=== PATIENT | male | born 1945 | race Caucasian/White ===

== ENCOUNTER 2023-10-17 13:37 | Observation (INO) | payer MEDICARE, BC, SELFPAY ==
[2023-10-17] VITALS (25 sets, daily range): BP systolic 120–155; BP diastolic 55–76; PULSE 53–95; RESP 16–28; TEMP 37.1–37.9; O2SAT 94–100; BMI 23.8; BMI 24.9
[2023-10-17 14:48] LABS: Strep A DNA Probe* NOT DETECTED (Not Detectd)
[2023-10-17 14:58] LABS: PCR FLU A Negative PCR FLU A (Negative); PCR FLU B Negative PCR FLU B (Negative); PCR RSV Negative PCR RSV (Negative)
[2023-10-17 14:59] LABS: SARS PCR* Negative SARS-CoV-2 (Negative)
[2023-10-17 16:29] LABS: Appearance Urine Clear (Clear); Bilirubin Urine Negative (Negative); Blood Urine Negative (Negative); Color Urine Yellow (Yellow); Glucose Urine Negative (Negative); Ketones Urine Negative (Negative); Leukocyte Esterase Urine Negative (Negative); Nitrite Urine Negative (Negative); Protein Urine 2+ (Negative); RBC Urine 0-2 (0-2); Specific Gravity Urine 1.025 (1.000-1.030); Urobilinogen Urine 0.2 (0.2-1.0); WBC Urine 0-2 (0-5); pH Urine 6.5 (5.0-8.5)
[2023-10-17 16:30] LABS: Bacteria Urine Few; Squamous Epithelial Cell Urine Few (None-Few)
[2023-10-17 16:50] LABS: Lactate* 1.2 mmol/L (0.5-1.9)
--- NOTE | 2023-10-17 17:08 | CRLHL7_ITS ---
For Patients: As a result of the Cures Act, medical imaging exams and procedure reports are released immediately into your electronic medical record. You may view this report before your referring provider. If you have questions, please contact your health care provider. INDICATION: Cough, fever weakness. COMPARISON: None. TECHNIQUE: Chest series. FINDINGS: Diffuse interseptal opacities within both lungs which may be secondary to infiltrates or pneumonitis. No pleural effusions. No pneumothorax. Cardiomegaly. Left-sided cardiac pacer. Degenerative changes in the visualized thoracic spine. IMPRESSION: 1. Diffuse interstitial opacities within both lungs secondary to infiltrate or pneumonitis 2. No pleural effusions. 3. Cardiomegaly Dictated by Júnior Peña MD @ 10/17/2023 5:45:24 PM (Electronically Signed)
--- NOTE | 2023-10-17 17:10 | ED.GENADULT ---
[facility] - General Adult General Date Seen: 10/17/23 Chief complaint: Weakness Stated complaint: Weak, unresponsive Time Seen by Provider: 10/17/23 16:38 History of Present Illness HPI narrative: This is a pleasant 78-year-old gentleman accompanied to the ER this afternoon by his for evaluation of generalized weakness, cough, fever. He has a past medical history notable for idiopathic pulmonary fibrosis (stable on OFEV for the past several years, not on oxygen) bladder cancer with bladder surgery and left nephrectomy performed about a year ago, history of pacemaker for arrhythmia, dyslipidemia, gout. He and his are in the process of relocating from [facility] to live here in [place] to be close to their children. They are in the process of establishing new primary and specialty care through the [facility]. Previous care has been through their doctors in [place] and [facility]. They note that their granddaughter was sick a couple of weeks ago with a viral respiratory syndrome. Both her son and their daughter in-law have been sick since last week. One of them has a bad ear infection and the other has a sinus infection in both are on antibiotics. Both tested negative for COVID at their doctor's checkups. The patient's has had a cough and respiratory illness for about a week. The patient developed symptoms yesterday. Symptoms started yesterday afternoon including cough, nasal congestion, also generalized weakness, fatigue, and increased sleepiness. He was trying to drink lots of fluids yesterday thinking dehydration may be playing a role. As result he was up 4 or 5 times over night to urinate. No other urinary symptoms such as dysuria, urgency, frequency. No hematuria. He is not having any abdominal pain. No vomiting. No diarrhea. Appetite has been less than normal. No swelling in his legs. He does have a chronic cough. His thinks he is coughing more than normal but he thinks it is about stable or perhaps only slightly worse. He says he is not short of breath. He has a ?scratchy throat?. Mild nasal congestion. No shortness of breath. He has also had a small lump behind his right ear for the past couple of years. It has begun to grow in size over the past month or so. It is not painful, red. At 1 point in the past he was able to squeeze it and expressed a little bit of fluid out of it, a couple of days ago. It he has seen his doctor in the think he probably has a sebaceous cyst there. He is planning to have an excision by a surgeon next week. Related Data Home Medications Medication Instructions Recorded Confirmed allopurinol 300 mg tablet 150 mg PO DAILY 10/17/23 10/17/23 aspirin 81 mg capsule 81 mg PO DAILY 10/17/23 10/17/23 atorvastatin 80 mg tablet 80 mg PO DAILY 10/17/23 10/17/23 cyclobenzaprine 10 mg tablet 10 mg PO HS 10/17/23 10/17/23 diltiazem HCl 180 mg 180 mg PO DAILY 10/17/23 10/17/23 capsule,extended release 24 hr (Cardizem CD) metoprolol tartrate 25 mg tablet 25 mg PO BID 10/17/23 10/17/23 mirtazapine 15 mg tablet (Remeron) 15 mg feeding tube DAILY 10/17/23 10/17/23 sildenafil 100 mg tablet (Viagra) 100 mg PO DAILY PRN 10/17/23 10/17/23 zolpidem 10 mg tablet (Ambien) 10/17/23 Allergies Allergy/AdvReac Type Severity Reaction Status Date / Time No Known Drug Allergies Allergy Verified 10/17/23 20:26 [facility] Social History Smoking Status: Unknown if ever smoked Exam Narrative: Exam Narrative: Constitutional: Appears well-developed and well-nourished. Alert. Conversant. Non toxic. HENT: Head: Atraumatic. Right ear: He has a superficial appearing, mobile, roughly square-shaped 2 x 2 cm soft tissue nodule in the skin overlying his mastoid. Mobley is normal. Canal normal. TM normal. Left ear: Mastoid, pinna, canal are normal. Nose: Non purulent rhinorrhea. No sinus tenderness. Nose normal. Mouth/Throat: Oral mucosa is clear and moist. no trismus. Pharynx and peritonsillar pillars erythematous. Tonsils symmetric. No tonsillar enlargement, erythema, or exudate. Uvula midline. Eyes: Conjunctivae mildly injected bilaterally. No drainage. No swelling. EOM normal. Pupils equal, round, and reactive to light. No scleral icterus. Neck: Normal range of motion. Neck supple. No tracheal deviation present. Cardiovascular: Normal rate, regular rhythm. No gallop. No friction rub. No murmur heard. Symmetric radial and PT/DP artery pulses Pulmonary/Chest: Effort normal. No stridor. No respiratory distress. No wheezes. Dry surrounding bibasilar rales (per patient and he has a history of pulmonary fibrosis). No rhonchi . No tenderness. Abdominal: Soft. Bowel sounds normal. No distension. No mass. No tenderness. No rebound. No guarding. No CVA tenderness. Musculoskeletal: RUE: Normal range of motion. No tenderness. No deformity LUE: Normal range of motion. No tenderness. No deformity RLE: Normal range of motion. No edema. No tenderness. No deformity LLE: Normal range of motion. No edema. No tenderness. No deformity Lymph: No cervical adenopathy. Neurological: Alert and oriented to person, place, and time. Normal strength. CN II-VII intact. No sensory deficit. GCS eye subscore is 4. GCS verbal subscore is 5. GCS motor subscore is 6. Normal coordination Skin: Skin is warm and dry. No rash noted. No pallor. Normal capillary refill. Psychiatric: Normal mood. Normal affect. Const: Vital Signs, click to edit/add: Vital Signs - 24 hr 10/17/23 14:07 10/17/23 16:14 10/17/23 17:41 Temperature 100.2 F H 99.3 F Pulse Rate Pulse Rate [Pulse Oximeter] 55 L 54 L 53 L Respiratory Rate 20 18 16 Blood Pressure Blood Pressure [Ri ght Upper Arm] 155/65 H 120/55 L 120/62 Pulse Oximetry 97 96 96 Oxygen Delivery Me thod Room Air Room Air Room Air 10/17/23 18:28 10/17/23 18:30 10/17/23 18:33 Temperature Pulse Rate 62 54 L 55 L Pulse Rate [Pulse Oximeter] Respiratory Rate Blood Pressure 131/64 Blood Pressure [Ri ght Upper Arm] Pulse Oximetry 97 97 97 Oxygen Delivery Me thod 10/17/23 18:34 10/17/23 18:45 10/17/23 18:59 Temperature Pulse Rate 60 57 L 65 Pulse Rate [Pulse Oximeter] Respiratory Rate Blood Pressure 151/76 H Blood Pressure [Ri ght Upper Arm] Pulse Oximetry 97 97 95 Oxygen Delivery Wi thod 10/17/23 19:00 10/17/23 19:02 10/17/23 19:15 Temperature Pulse Rate 61 55 L 61 Pulse Rate [Pulse Oximeter] Respiratory Rate Blood Pressure 148/69 H Blood Pressure [Ri ght Upper Arm] Pulse Oximetry 96 97 95 Oxygen Delivery Me thod 10/17/23 19:30 10/17/23 19:41 10/17/23 19:45 Temperature Pulse Rate 65 57 L Pulse Rate [Pulse Oximeter] Respiratory Rate 28 H Blood Pressure Blood Pressure [Ri ght Upper Arm] Pulse Oximetry 97 98 Oxygen Delivery Me thod Course Course ED Course: Recheck-vital stable. Blood pressure down from 150 down to 130. Pulse rate improved from the 100s. Oxygen still high 90s. Chest x-ray shows probable multifocal pneumonia. On my review the chest x-ray, unclear if these infiltrates or truly acute community-acquired pneumonia or if they could possibly related to chronic pulmonary fibrosis. However his symptoms, fever, white count, clinically this would fit with community-acquired pneumonia. He is negative for COVID, influenza, RSV. Recheck-patient needs to urinate after fluids. Was able to ambulate under his own power in the hallway but did become tachypneic with respiratory rate up to 28. Oxygen sats remained normal while ambulating. Recheck-patient does report he felt quite weak when walking. In discussion with patient's and daughter, he has a whole flight of steps to go down if he were to go home. Overall they feel that he is probably too weak to safely go down the steps. We agree that hospitalization is warranted for monitoring and supportive care. Vital Signs Vital signs: Initial Vital Signs Temperature 100.2 F H 10/17/23 14:07 Temperature Source Temporal Artery Scan 10/17/23 14:07 Pulse Rate 55 L 10/17/23 14:07 Pulse Rhythm Regular 10/17/23 14:07 Respiratory Rate 20 10/17/23 14:07 Blood Pressure 155/65 H 10/17/23 14:07 Blood Pressure Mean 95 10/17/23 14:07 Blood Pressure Position Sitting 10/17/23 14:07 Pulse Oximetry 97 10/17/23 14:07 Oxygen Delivery Method Room Air 10/17/23 14:07 Vital Signs Temperature 100.2 F H 10/17/23 14:07 Pulse Rate 55 L 10/17/23 14:07 Respiratory Rate 20 10/17/23 14:07 Blood Pressure 155/65 H 10/17/23 14:07 Pulse Oximetry 97 10/17/23 14:07 Oxygen Delivery Method Room Air 10/17/23 14:07 Temperature 99.3 F 10/17/23 16:14 Pulse Rate 57 L 10/17/23 19:45 Respiratory Rate 28 H 10/17/23 19:41 Blood Pressure 148/69 H 10/17/23 19:02 Pulse Oximetry 98 10/17/23 19:45 Oxygen Delivery Method Room Air 10/17/23 17:41 Medications Administered Medications: Generic Name Dose Route Start Last Admin Trade Name Freq PRN Reason Stop Dose Admin Ceftriaxone Sodium 1 gm/ 100 mls @ 200 mls/hr 10/17/23 18:40 10/17/23 19:26 Sodium Chloride IVPB 10/17/23 18:41 Infused ONCE ONE Infusion Azithromycin 500 mg/ Sodium 255 mls @ 255 mls/hr 10/17/23 18:40 10/17/23 19:36 Chloride IVPB 10/17/23 18:41 255 mls/hr ONCE ONE Administration Discontinued Medications Generic Name Dose Route Start Last Admin Trade Name Freq PRN Reason Stop Dose Admin Sodium Chloride 1,000 mls @ 1,000 mls/hr 10/17/23 17:15 10/17/23 19:02 0.9 % Sodium Chloride 1000 Ml IV 10/17/23 18:14 Infused .Q1H [place] Infusion Medical Decision Making [facility] Narrative Medical decision making narrative: Very pleasant 78-year-old gentleman presenting to the ER today with fever, cough, nasal congestion, sore throat, generalized weakness, difficulty walking at home. 1. Pulmonary. Does have a cough. Fortunately oxygen is in the high 90s. He does become tachypneic and short of breath when walking but is not hypoxic. He has baseline pulmonary fibrosis but has been stable with that for years. With recent cough, consider infectious process. COVID/influenza/RSV negative. No wheezing or bronchospasm to suggest COPD. Chest x-ray does show bilateral infiltrates, possibly indicating COPD. Differential for the infiltrates would also include his pulmonary fibrosis. Will treat with antibiotics for community-acquired pneumonia. At this point he is respiratory early stable but does become quite short of breath and and weak with walking. Will admit for careful monitoring. At this point not requiring oxygen or positive pressure ventilation. 2. Infectious disease. Negative for COVID/RSV/influenza. Does have exposures to other family members with respiratory illnesses at home. Chest x-ray shows possible pneumonia. He has a history of bladder cancer with left nephrectomy. Bladder infection a couple of months ago. Urinalysis today looks good. No evidence for UTI or pyelonephritis. Blood cultures pending. UA did have a low-grade fever here at presentation but that improved. Venous lactic normal. White count elevated at 13.4. No evidence for septic shock. He received a 1 L IV fluid bolus here. At this point no indication for a full 30 mL/kilos bolus. 3. Cardiac. EKG shows functioning pacemaker. No ischemia. Troponin negative. No peripheral edema suggest CHF. 4. Renal. Has had poor appetite recently. Fortunately creatinine is normal at 0.9. BUN slightly elevated suggesting probable pre renal. Sodium mildly low at 134. Potassium mildly low at 3.3. Overall, given the patient's age, medical comorbidities, and community-acquired pneumonia with his ongoing generalized weakness and shortness of breath with exertion we do feel that he meets criteria for hospitalization. Discussed with our hospitalist, Dr. Gil will accept to the hospitalist service for monitoring overnight. She requests that we obtain a CT PA of his lungs to get a better characterization of the infiltrates. She will follow up on the results when he arrived on the floor. Lab Data Labs: Lab Results 10/17/23 10/17/23 10/17/23 Range/Units 14:12 16:20 16:36 WBC 13.10 H (4.50-11.00) K/uL RBC 3.56 L (4.30-5.90) m/uL Hgb 11.4 L (13.5-17.5) gm/dL Hct 34.4 L (37.0-53.0) % MCV 97 (80-100) fL MCH 32 (26-34) pg MCHC 33 (32-36) gm/dL RDW Coeff of Oscar 14.4 (11.5-15.5) % Plt Count 165 (140-440) K/uL Neut % (Auto) 80.1 H (42.0-72.0) % Lymph % (Auto) 9.5 L (20-44) % Carroll % (Auto) 9.4 (0.0-11.0) % Eos % (Auto) 0.5 (0.0-7.0) % Baso % (Auto) 0.3 (0.0-3.0) % Neut # (Auto) 10.50 H (1.7-7.0) K/uL Lymph # (Auto) 1.20 (0.90-2.90) K/uL Carroll # (Auto) 1.20 H (0.00-0.90) K/UL Eos # (Auto) 0.10 (0.00-0.50) K/uL Baso # (Auto) 0.00 (0.00-0.30) K/uL Abs Immat Gran (auto) 0.00 (0.00-0.30) K/uL Imm/Tot Granulo (auto) 0.2 % Sodium 134 L (135-149) mmol/L Potassium 3.3 L (3.6-5.1) mmol/L Chloride 101 (96-114) mmol/L Carbon Dioxide 25 (20-32) mmol/L Anion Gap 8 (7-15) mEq/L BUN 36 H (7-30) mg/dL Creatinine 0.9 (0.5-1.5) mg/dL Estimated Creat Clear 56.92 Estimated GFR 87 ml/min Glucose 124 H (60-115) mg/dL Lactate 1.2 (0.5-1.9) mmol/L Calcium 8.4 (8.4-10.6) mg/dL Total Bilirubin 0.6 (0.1-1.5) mg/dL AST 29 (12-35) U/L ALT 20 (4-50) U/L Alkaline Phosphatase 97 (40-150) U/L Troponin I 0.03 (0.01-0.04) ng/mL Total Protein 7.0 (6.0-8.3) g/dL Albumin 3.9 (3.3-5.0) g/dL Urine Color Yellow (Yellow) Urine Appearance Clear (Clear) Urine pH 6.5 (5.0-8.5) Ur Specific Mclean 1.025 (1.000-1.030) Urine Protein 2+ A (Negative) Urine Glucose (UA) Negative (Negative) Urine Ketones Negative (Negative) Urine Blood Negative (Negative) Urine Nitrite Negative (Negative) Urine Bilirubin Negative (Negative) Urine Urobilinogen 0.2 (0.2-1.0) Ur Leukocyte Esterase Negative (Negative) Urine RBC 0-2 (0-2) Urine WBC 0-2 (0-5) Ur Squamous Epith Cells Few (None-Few) Urine Bacteria Few A (None) SARS-CoV-2 (PCR) Negative SARS-CoV-2 (Negative) Influenza Type A (PCR) Negative PCR FLU A (Negative) Influenza Type B (PCR) Negative PCR FLU B (Negative) RSV (PCR) Negative PCR RSV (Negative) Group A Strep DNA NOT DETECTED (Not Detectd) ECG Data Attestation: I personally reviewed and interpreted this ECG as follows: Interpretation: Paced. Rate 52 NE 234 QRS axis left axis deviation. Paced QRS ST segment/T wave: Consistent with pacemaker. QTc: 487 Discharge Plan Discharge Clinical Impression: Community acquired pneumonia Prescriptions: No Action allopurinol 300 mg tablet 150 mg PO DAILY atorvastatin 80 mg tablet 80 mg PO DAILY diltiazem HCl [Cardizem CD] 180 mg capsule,extended release 24hr 180 mg PO DAILY metoprolol tartrate 25 mg tablet 25 mg PO BID mirtazapine [Remeron] 15 mg tablet 15 mg feeding tube DAILY aspirin 81 mg capsule 81 mg PO DAILY zolpidem [Ambien] 10 mg tablet cyclobenzaprine 10 mg tablet 10 mg PO HS sildenafil [Viagra] 100 mg tablet 100 mg PO DAILY PRN Rx Instructions: administer 30 minutes to 4 hours before activity Follow Up/Referrals: Neville Bowie MD [Primary Care Provider] -
[2023-10-17 17:24] LABS: Basophils Percent Auto 0.3 % (0.0-3.0); Eosinophils Percent Auto 0.5 % (0.0-7.0); Hematocrit 34.4 % (37.0-53.0); Hemoglobin* 11.4 gm/dL (13.5-17.5); Immature Granulocytes Pct Auto 0.2 %; Lymphocytes Percent Auto 9.5 % (20-44); Mean Corpuscular HGB Conc 33 gm/dL (32-36); Mean Corpuscular Hemoglobin 32 pg (26-34); Mean Corpuscular Volume 97 fL (80-100); Monocytes Percent Auto 9.4 % (0.0-11.0); Neutrophils Percent Auto 80.1 % (42.0-72.0); Platelet Count* 165 K/uL (140-440); RDW Coefficient of Variation % 14.4 % (11.5-15.5); Red Blood Count 3.56 m/uL (4.30-5.90)
[2023-10-17 17:27] LABS: Albumin* 3.9 g/dL (3.3-5.0)
[2023-10-17 17:28] LABS: Chloride* 101 mmol/L (96-114); Potassium* 3.3 mmol/L (3.6-5.1); Sodium* 134 mmol/L (135-149)
[2023-10-17 17:29] LABS: Slide Review Reflex No
[2023-10-17 17:30] LABS: Anion Gap 8 mEq/L (7-15); Aspartate Amino Transferase* 29 U/L (12-35); Bilirubin Total* 0.6 mg/dL (0.1-1.5); Carbon Dioxide* 25 mmol/L (20-32); Creatinine* 0.9 mg/dL (0.5-1.5); Est. Creatinine Clearance* 56.92; Estimated Glomerular Filt Rate 87 ml/min
[2023-10-17 17:31] LABS: Alanine Aminotransferase* 20 U/L (4-50); Alkaline Phosphatase* 97 U/L (40-150); Blood Urea Nitrogen* 36 mg/dL (7-30); Calcium* 8.4 mg/dL (8.4-10.6); Glucose* 124 mg/dL (60-115)
[2023-10-17] MEDS: 0.9 % SODIUM CHLORIDE 1000 ml 1,000 ML IV (17:42)
[2023-10-17 17:43] LABS: Troponin I* 0.03 ng/mL (0.01-0.04)
[2023-10-17] MEDS: cefTRIAXone 1 GM in 0.9 % SODIUM CHLORIDE Mini-bag 100 ML IVPB (18:47)
[2023-10-17] MEDS: AZITHROMYCIN 500 MG in 0.9 % SODIUM CHLORIDE 250 ml 250 ML 255 MG IVPB (19:36)
--- NOTE | 2023-10-17 20:10 | CRLHL7_ITS ---
For Patients: As a result of the Century Cures Act, medical imaging exams and procedure reports are released immediately into your electronic medical record. You may view this report before your referring provider. If you have questions, please contact your health care provider. INDICATION: Cough, shortness of breath, history bladder and kidney cancer TECHNIQUE: CT chest with i.v. contrast using pulmonary angiographic technique. Coronal and sagittal reformats were obtained. CONTRAST: 89 mL Isovue 370 COMPARISON: 10/17/2023 FINDINGS: Cardiovascular: Moderate enlargement of the main pulmonary artery is present and measures 3.3 cm in maximal short axis. The pulmonary arteries are unremarkable in enhancement with no evidence of acute pulmonary embolism. Moderate biventricular cardiomegaly is present. There is a left cardiac pacer present with leads in the right atrium and right ventricle. 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 Mediastinum: No mass or adenopathy seen. Lung: Interlobular septal thickening is present bilaterally with no zonal predominance seen. Minimal segmental consolidation is present in the posterior left lower lobe. Pleura and pericardium: No sign of pleural effusion seen. No significant pericardial effusion is present. Chest wall and axilla: No mass or adenopathy seen. Bone: Unremarkable for age. Upper abdomen: Unremarkable. IMPRESSIONS: 1. No CT evidence of acute pulmonary emboli seen. 2. Moderate enlargement of the main pulmonary artery is present and measures 3.3 cm in maximal short axis. This is likely due to pulmonary hypertension. 3. Moderate biventricular cardiomegaly is present. 4. Interlobular septal thickening is present bilaterally with no zonal predominance seen. Minimal segmental consolidation is present in the posterior left lower lobe. Findings may be due to pulmonary fibrosis from collagen vascular disease or drug reaction. Dictated by Valentín Hernández MD @ 10/17/2023 8:51:32 PM Please note that all CT scans at this facility use dose modulation, iterative reconstruction, and/or weight-based dosing when appropriate to reduce radiation dose to as low as reasonably achievable. Dictated by: Valentín Hernández MD @ 10/17/2023 20:51:43 (Electronically Signed)
--- NOTE | 2023-10-17 21:11 | P.IMHP_ITS ---
Hospitalist- H&P: HPI History of Present Illness Date Seen: 10/17/23 Chief complaint: Weak, unresponsive Narrative: ADMISSION HISTORY AND PHYSICAL - HOSPITALIST Chief Complaint: Weakness, cough HPI: 78-year-old male with a history of idiopathic pulmonary fibrosis, valvular heart disease (tricuspid, mitral), heart block with pacemaker, bladder cancer and mild cognitive impairment presents for increasing weakness. He and his just moved from [place] 2 weeks ago. They are living with their son, [id number] and granddaughter. The rest of the family has had a upper respiratory infections. COVID negative so far. In the last 24 hours Heriberto has become progressively weak and mildly delirious. She stated it took three people to guide him to bed on the night prior to admissions. He has felt warm but not hot, no rigors, no diaphoresis. He started a productive weak cough early this morning. His brought him in for further evaluation to our ED. He is medically complex. He has received most of his care on the [facility]. [facility] has some of his medical record. He just established primary care with [facility], Dr. Bowie. He has pending oncology (bladder cancer), pulmonology (IPF), dermatology (right postauricular mass, history of melanoma, BCC, SCC) and is awaiting a cardiology referral all to the [facility]. More over than the acute symptoms his describes 20 lbs of unintentional weight loss over the last year, increasing weakness and needing more naps. She also notes some mild cognitive decline. ER COURSE: Fluids, antibiotics, x-ray and labs. While his labs were not all that off, and his vital signs were essentially stable without hypoxia it was his weakness with the inability to walk on his own that tipped the ER to call us for admission CODE STATUS: FULL CODE EMERGENCY CONTACT PLAN: Primary Contact? Viry Lindsey? ?Rel to [facility]? [phone]?Cell Phone? I've updated the PFSH, medications and allergies in the Expanse tabs. INVESTIGATIONS: LABS/MICRO/ECG/IMAGING 140/71. Pulse 60. Respirations 28. Temp 99.3?. O2 sat 94% on room air. 69 kilos, BMI 24 Mild bump in his total white blood cell count to 13.1, 80% neutrophils Hemoglobin 11.4 Platelet count 165 Sodium 134 with a glucose of 124 Potassium 3.3 BUN 36 with a creatinine of 0.9. GFR 87. Normal lactate Normal calcium Normal LFTs 2+ protein in his urine Negative quad screen Negative strep screen Blood gas is normal Now pending is CRP, BNP, procalcitonin and TSH Urine Legionella and strep pneumo are pending Two blood cultures pending. Urine culture pending CTA 1. No CT evidence of acute pulmonary emboli seen. 2. Moderate enlargement of the main pulmonary artery is present and measures 3.3 cm in maximal short axis. This is likely due to pulmonary hypertension. 3. Moderate biventricular cardiomegaly is present. 4. Interlobular septal thickening is present bilaterally with no zonal predominance seen. Minimal segmental consolidation is present in the posterior left lower lobe. Findings may be due to pulmonary fibrosis from collagen vascular disease or drug reaction. REVIEW OF SYSTEMS: 12-point ROS completed with patient and negative unless otherwise stated in HPI or below. PHYSICAL EXAM: CONSTITUTIONAL: Weak appearing, eyelids heavy, injected conjunctiva. Struggles to complete sentences. VITAL SIGNS: see record. HEENT: Normocephalic, atraumatic. PERRL, EOMI, conjunctivae pink, no scleral icterus. Ears and nose externally normal. Pharynx normal. NECK: No JVD. No carotid bruit, no thyromegaly, no adenopathy. Large firm mass postauricular, right ear. Size of a golf ball CHEST: Clear to auscultation bilaterally HEART: S1 and S2 normal. No harsh murmurs. Edema minimal MUSCULOSKELETAL: No gross joint deformity or swelling. NEURO: Cranial nerves intact. Grossly intact. No asymmetric findings. SKIN: No rashes, petechiae, concerning changes PSYCHIATRIC: Euthymic. ADMIT TO MEDSURG: FLOOR CARE DVT: Lovenox GI: PO intake Time spent: Today I spent 75 minutes seeing the patient, discussing the patient with ER staff, reviewing Expanse and EPIC notes/diagnostics, discussing the care plan with our care time that includes social work, PT/OT, pharmacy, RT, custodial and documenting my impressions and plan in the medical record. [facility] Medical History (Updated 10/17/23 @ 22:31 by Radha Gil MD) History of SCC (squamous cell carcinoma) of skin ?Z85.828 - Personal history of other malignant neoplasm of skin (ICD-10) History of basal cell carcinoma (BCC) ?Z85.828 - Personal history of other malignant neoplasm of skin (ICD-10) History of melanoma ?Z85.820 - Personal history of malignant melanoma of skin (ICD-10) Mild cognitive impairment ?G31.84 - Mild cognitive impairment of uncertain or unknown etiology (ICD-10) Erectile dysfunction ?N52.9 - Male erectile dysfunction, unspecified (ICD-10) Urothelial carcinoma of bladder ?C67.9 - Malignant neoplasm of bladder, unspecified (ICD-10) Chronic kidney disease ?N18.9 - Chronic kidney disease, unspecified (ICD-10) Gout ?M10.9 - Gout, unspecified (ICD-10) Valvular heart disease ?I38 - Endocarditis, valve unspecified (ICD-10) Idiopathic pulmonary fibrosis ?J84.112 - Idiopathic pulmonary fibrosis (ICD-10) History of second degree heart block ?Z86.79 - Personal history of other diseases of the circulatory system (ICD- 10) Tinnitus ?H93.19 - Tinnitus, unspecified ear (ICD-10) Paroxysmal SVT (supraventricular tachycardia) ?I47.10 - Supraventricular tachycardia, unspecified (ICD-10) Hyperlipidemia ?E78.5 - Hyperlipidemia, unspecified (ICD-10) Surgical History (Updated 10/17/23 @ 21:35 by Radha Gil MD) History of hernia repair ?Z98.890 - Other specified postprocedural states (ICD-10) ?Z87.19 - Personal history of other diseases of the digestive system (ICD-10) History of tonsillectomy ?Z90.89 - Acquired absence of other organs (ICD-10) H/O cataract removal with insertion of prosthetic lens ?Z98.49 - Cataract extraction status, unspecified eye (ICD-10) ?Z96.1 - Presence of intraocular lens (ICD-10) Status post Dupuytren's fasciectomy ?Z98.890 - Other specified postprocedural states (ICD-10) Status post nephrectomy ?Z90.5 - Acquired absence of kidney (ICD-10) Status post biventricular pacemaker ?Z95.0 - Presence of cardiac pacemaker (ICD-10) Social History Smoking Status: Unknown if ever smoked Meds Home Medications and Allergies Home Medications Medication Instructions Recorded Confirmed Type allopurinol 300 mg tablet 150 mg PO DAILY 10/17/23 10/17/23 History aspirin 81 mg capsule 81 mg PO DAILY 10/17/23 10/17/23 History atorvastatin 80 mg tablet 80 mg PO DAILY 10/17/23 10/17/23 History cyclobenzaprine 10 mg tablet 10 mg PO HS 10/17/23 10/17/23 History diltiazem HCl 180 mg 180 mg PO DAILY 10/17/23 10/17/23 History capsule,extended release 24 hr (Cardizem CD) metoprolol tartrate 25 mg tablet 25 mg PO BID 10/17/23 10/17/23 History mirtazapine 15 mg tablet (Remeron) 15 mg feeding tube DAILY 10/17/23 10/17/23 History sildenafil 100 mg tablet (Viagra) 100 mg PO DAILY PRN 10/17/23 10/17/23 History zolpidem 10 mg tablet (Ambien) 10/17/23 History Allergies Allergy/AdvReac Type Severity Reaction Status Date / Time No Known Drug Allergies Allergy Verified 10/17/23 20:26 Exam Const: Vital Signs, click to edit/add: Vital Signs - 24 hr 10/17/23 14:07 10/17/23 16:14 10/17/23 17:41 Temperature 100.2 F H 99.3 F Pulse Rate Pulse Rate [Pulse Oximeter] 55 L 54 L 53 L Respiratory Rate 20 18 16 Blood Pressure Blood Pressure [Ri ght Upper Arm] 155/65 H 120/55 L 120/62 Pulse Oximetry 97 96 96 Oxygen Delivery Me thod Room Air Room Air Room Air 10/17/23 18:28 10/17/23 18:30 10/17/23 18:33 Temperature Pulse Rate 62 54 L 55 L Pulse Rate [Pulse Oximeter] Respiratory Rate Blood Pressure 131/64 Blood Pressure [Ri ght Upper Arm] Pulse Oximetry 97 97 97 Oxygen Delivery Me thod 10/17/23 18:34 10/17/23 18:45 10/17/23 18:59 Temperature Pulse Rate 60 57 L 65 Pulse Rate [Pulse Oximeter] Respiratory Rate Blood Pressure 151/76 H Blood Pressure [Ri ght Upper Arm] Pulse Oximetry 97 97 95 Oxygen Delivery Me thod 10/17/23 19:00 10/17/23 19:02 10/17/23 19:15 Temperature Pulse Rate 61 55 L 61 Pulse Rate [Pulse Oximeter] Respiratory Rate Blood Pressure 148/69 H Blood Pressure [Ri ght Upper Arm] Pulse Oximetry 96 97 [facility] 19:30 10/17/23 19:41 10/17/23 19:45 Temperature Pulse Rate 65 57 L Pulse Rate [Pulse Oximeter] Respiratory Rate 28 H Blood Pressure Blood Pressure [Ri ght Upper Arm] Pulse Oximetry 97 98 [facility] 10/17/23 20:00 10/17/23 20:02 10/17/23 20:15 Temperature Pulse Rate 61 62 63 Pulse Rate [Pulse Oximeter] Respiratory Rate Blood Pressure 127/74 Blood Pressure [Ri ght Upper Arm] Pulse Oximetry 98 100 98 Oxygen Delivery [facility] 10/17/23 20:32 10/17/23 20:33 10/17/23 20:34 Temperature Pulse Rate 67 62 64 Pulse Rate [Pulse Oximeter] Respiratory Rate Blood Pressure 140/71 H Blood Pressure [Ri ght Upper Arm] Pulse Oximetry 96 96 95 Oxygen Delivery [facility] 10/17/23 20:45 Temperature Pulse Rate 60 Pulse Rate [Pulse Oximeter] Respiratory Rate Blood Pressure Blood Pressure [Ri ght Upper Arm] Pulse Oximetry 94 Oxygen Delivery [facility] Hospitalist - H&P: Result Labs Labs: Short CBC 10/17/23 Range/Units 16:36 WBC 13.10 H (4.50-11.00) K/uL Hgb 11.4 L (13.5-17.5) gm/dL Hct 34.4 L (37.0-53.0) % Plt Count 165 (140-440) K/uL [facility] 10/17/23 16:36 Sodium 134 L Potassium 3.3 L Chloride 101 Carbon Dioxide 25 BUN 36 H Creatinine 0.9 Glucose 124 H Calcium 8.4 Cardiac Enzymes 10/17/23 Range/Units 16:36 Troponin I 0.03 (0.01-0.04) ng/mL Liver Function 10/17/23 Range/Units 16:36 Total Bilirubin 0.6 (0.1-1.5) mg/dL AST 29 (12-35) U/L ALT 20 (4-50) U/L Alkaline Phosphatase 97 (40-150) U/L Albumin 3.9 (3.3-5.0) g/dL Urine 10/17/23 Range/Units 16:20 Urine Color Yellow (Yellow) Urine Appearance Clear (Clear) Urine pH 6.5 (5.0-8.5) Ur Specific Navarro 1.025 (1.000-1.030) Urine Protein 2+ A (Negative) Urine Glucose (UA) Negative (Negative) Assessment and Plan Assessment and plan (1) Community acquired pneumonia: Problem comment: -after reviewing the CTA, I am not convinced there is a community-acquired pneumonia. However with his cough, malaise/weakness, injected conjunctiva he very well could have an adenovirus it simply has made him weak given all of his comorbidities. -I wrote for antibiotics on day 2, 12/19 but the day team can certainly stop these -gave a dose of IV steroids tonight and prednisone p.o. tomorrow -pulmonary toilet -will update echocardiogram given his known valvular disease and cardiomyopathy. I am awaiting BNP as I dictate this. Status: Acute (2) Idiopathic pulmonary fibrosis: Problem comment: -nintedanib (Ofev) BID (causes him diarrhea; has home med to use) -20lb weight loss ( attributed to chronic diarrhea from the Ofev) -not hypoxic, VBG is reassuring, scan shows the septal thickening Status: Acute (3) Valvular heart disease: Problem comment: -will update echo Echo August 2019 ([place]- scan in [facility]) -left atrium is severely dilated -right atrium is mildly dilated -moderate tricuspid regurg -moderately thickened mitral valve leaflets, moderate mitral regurg -left ventricular systolic function is normal -50-55% EF Mild left ventricular hypertrophy Elevated right ventricular pressures at 34 Status: Acute (4) History of second degree heart block: Problem comment: -biventricular pacemaker -troponin negative -telemetry -EKG reviewed Status: Acute (5) Chronic kidney disease: Problem comment: -stable Status: Acute (6) Essential hypertension: Problem comment: -daily diltiazem, metoprolol succinate Status: Acute (7) Mild cognitive impairment: Problem comment: -superimposed mild delirium tonight. Status: Acute (8) Urothelial carcinoma of bladder: Problem comment: -left nephrectomy Status: Acute
[2023-10-17 21:30] LABS: Lab Add On Test New Spec Needed
[2023-10-17 22:02] LABS: HCO3 VBG 26 mmol/L (21-28); PCO2 VBG 42 mmHG (40-50); PO2 VBG 35.3 mmHG (25-47); pH VBG 7.405 (7.32-7.43)
[2023-10-17 22:09] LABS: Uric Acid* 4.1 mg/dL (2.2-8.4)
[2023-10-17 22:25] LABS: C Reactive Protein* 12.5 mg/dL (0.5-1.0); NT Pro B Type NatriureticPept* 2600 pg/mL
[2023-10-17 22:26] LABS: Procalcitonin* 0.16 ng/mL (<0.50)
[2023-10-17] MEDS: IPRAT-ALBUT 0.5-2.5 MG/3 ML NEB 1 NEB IH (23:55)
[2023-10-17] MEDS: 5 % DEXTROSE IN LAC RINGER'S 1,000 ML 125 ML IV (23:57)
[2023-10-18] VITALS (7 sets, daily range): BP systolic 127–145; BP diastolic 66–73; PULSE 56–74; RESP 18–26; TEMP 36.4–37.1; O2SAT 93–100; BMI 24.4
[2023-10-18] MEDS: METHYLPREDNISOLONE SOD SUCC 62.5 MG/ML (125) 125 MG IVP (00:03)
[2023-10-18] MEDS: ENOXAPARIN 40 MG/0.4 ML INJ SUBCUT ×2 (00:13→21:35)
[2023-10-18] MEDS: IPRAT-ALBUT 0.5-2.5 MG/3 ML NEB 1 NEB IH ×4 (04:44→21:35)
[2023-10-18 06:25] LABS: Ionized Calcium* 1.15 mmol/L (1.11-1.30)
[2023-10-18 06:26] LABS: Basophils Percent Auto 0.2 % (0.0-3.0); Hematocrit 34.3 % (37.0-53.0); Hemoglobin* 11.6 gm/dL (13.5-17.5); Immature Granulocytes Pct Auto 0.7 %; Lymphocytes Percent Auto 3.2 % (20-44); Mean Corpuscular HGB Conc 34 gm/dL (32-36); Mean Corpuscular Hemoglobin 32 pg (26-34); Mean Corpuscular Volume 95 fL (80-100); Monocytes Percent Auto 1.9 % (0.0-11.0); Platelet Count* 159 K/uL (140-440); RDW Coefficient of Variation % 14.2 % (11.5-15.5); Red Blood Count 3.63 m/uL (4.30-5.90); White Blood Count* 12.52 K/uL (4.50-11.00)
[2023-10-18 06:39] LABS: Slide Review Reflex No
[2023-10-18 06:45] LABS: INR 1.22 (0.91-1.10); Prothrombin Time 16.2 Seconds
[2023-10-18 06:53] LABS: Albumin* 3.5 g/dL (3.3-5.0); Chloride* 106 mmol/L (96-114); Sodium* 135 mmol/L (135-149)
[2023-10-18 06:54] LABS: Potassium* 3.7 mmol/L (3.6-5.1)
[2023-10-18 06:56] LABS: Bilirubin Direct* 0.1 mg/dL (0.0-0.5); Bilirubin Total* 0.6 mg/dL (0.1-1.5); Carbon Dioxide* 23 mmol/L (20-32); Creatinine* 0.8 mg/dL (0.5-1.5); Estimated Glomerular Filt Rate 91 ml/min
[2023-10-18 06:57] LABS: Alanine Aminotransferase* 21 U/L (4-50); Alkaline Phosphatase* 104 U/L (40-150); Anion Gap 6 mEq/L (7-15); Aspartate Amino Transferase* 29 U/L (12-35); Blood Urea Nitrogen* 31 mg/dL (7-30); Calcium* 8.5 mg/dL (8.4-10.6); Glucose* 201 mg/dL (60-115); Magnesium* 1.7 mg/dL (1.5-2.6); Phosphorus* 1.6 mg/dL (2.5-4.5); Total Protein* 6.8 g/dL (6.0-8.3)
[2023-10-18 07:06] LABS: Troponin I* 0.03 ng/mL (0.01-0.04)
[2023-10-18] MEDS: 5 % DEXTROSE IN LAC RINGER'S 1,000 ML 125 ML IV (08:24)
--- NOTE | 2023-10-18 08:30 | PC.NURSE ---
Patient arrived to med/surg at 2109 accompanied by his . Pleasant and cooperative. Ambulates with stand by assist. Denied pain. Refused Nintedanib medication at reporting?that he didn?t want to have loose stools.?VSS.?
[2023-10-18] MEDS: predniSONE 20 MG TABLET 40 MG PO (09:20)
[2023-10-18] MEDS: SODIUM CHLORIDE 0.9 % (FLUSH) 10 ML SYRINGE 5 ML IVF ×3 (09:20→21:35)
[2023-10-18] MEDS: dilTIAZem 180 MG CAP (CD) PO (09:20)
[2023-10-18] MEDS: AZITHROMYCIN 250 MG TABLET PO (09:20)
[2023-10-18] MEDS: METOPROLOL TARTRATE 25 MG TABLET PO ×2 (09:20→21:34)
[2023-10-18] MEDS: POTASSIUM PHOS/SODIUM PHOS 250 MG TABLET PO ×3 (09:22→21:34)
--- NOTE | 2023-10-18 15:02 | PM.IMPN1 ---
Progress Note: A&P Assessment and plan (1) Community acquired pneumonia: Problem details: -suspected, atypical -after reviewing the CTA, I am not convinced there is a community-acquired pneumonia. However with his cough, malaise/weakness, injected conjunctiva he very well could have an adenovirus it simply has made him weak given all of his comorbidities. Strep negative. BC x2 pending, UC mixed keegan. Strep pneumo/Legionella ordered -continue IV antibiotics for now, pending further workup. Leukocytosis improving. -continue oral prednisone given his clinical improvement -pulmonary toilet -echo pending Status: Acute (2) Idiopathic pulmonary fibrosis: Problem details: -nintedanib (Ofev) BID (causes him diarrhea; has home med to use) - continue home dose -20lb weight loss ( attributed to chronic diarrhea from the Ofev) -not hypoxic, VBG is reassuring, scan shows the septal thickening -could be attributing to acute symptoms Status: Acute (3) Valvular heart disease: Problem details: -echo pending -BNP 2600. Stop IVF. -could consider diuretic pending echo findings, clinical course Echo August 2019 ([place] [facility]- scan in [facility]) -left atrium is severely dilated -right atrium is mildly dilated -moderate tricuspid regurg -moderately thickened mitral valve leaflets, moderate mitral regurg -left ventricular systolic function is normal -50-55% EF Mild left ventricular hypertrophy Elevated right ventricular pressures at 34 Status: Acute (4) History of second degree heart block: Problem details: -biventricular pacemaker -troponin negative -telemetry -EKG reviewed Status: Acute (5) Chronic kidney disease: Problem details: -stable, creatinine 0.8 Status: Acute (6) Essential hypertension: Problem details: -daily diltiazem, metoprolol succinate Status: Acute (7) Mild cognitive impairment: Problem details: -superimposed mild delirium tonight, 10/18 improved, fully oriented Status: Acute (8) Urothelial carcinoma of bladder: Problem details: -left nephrectomy Status: Acute (9) Hypophosphatemia: Problem details: -phosphorus 1.6, replace with 3 doses today and recheck in a.m. Status: Acute Plan Possibly discharged 10/19 pending further workup, clinical improvement Time Spent With Patient Total time spent: Total time spent caring for the patient today was 45 minutes. This includes time spent for the visit reviewing the chart, time spent during the visit, time spent after the visit and documentation and planning in coordination of care. Subjective Date Seen: 10/18/23 Interval history: Patient reports feeling better this morning though still a bit slowed. Feels as though confusion has improved. Is concurrently completely alert and oriented. Weakness is improving. Denies headache or dizziness. Denies chest pain or shortness of breath. Remains afebrile. Tolerating orals without nausea vomiting. Exam Narrative: Exam Narrative: PHYSICAL EXAM General: Pleasant, slightly slowed in answering/finding words, otherwise NAD HEENT: Normocephalic, atraumatic, sclera white, EOMI, oral mucosa moist Cardiovascular: RRR, S1S2. No pitting edema Pulmonary: CTA bilaterally without rhonchi, rales, expiratory wheezes. No dyspnea on room air Abdominal: Soft, nondistended, NTTP Neurological: Alert, answering questions appropriately, appropriately oriented, cranial nerves intact, no focal findings Extremities: No gross joint deformity or swelling. AROMI. Neurovascularly intact Skin: Warm, dry. Const: Vital Signs, click to edit/add: Vital Signs - 24 hr 10/17/23 16:14 10/17/23 17:41 10/17/23 18:28 Temperature 99.3 F Pulse Rate 62 Pulse Rate [Pulse Oximeter] 54 L 53 L Respiratory Rate 18 16 Blood Pressure Blood Pressure [Ri ght Arm] Blood Pressure [Ri ght Upper Arm] 120/55 L 120/62 Pulse Oximetry 96 96 97 Oxygen Delivery Me thod Room Air Room Air 10/17/23 18:30 10/17/23 18:33 10/17/23 18:34 Temperature Pulse Rate 54 L 55 L 60 Pulse Rate [Pulse Oximeter] Respiratory Rate Blood Pressure 131/64 Blood Pressure [Ri ght Arm] Blood Pressure [Ri ght Upper Arm] Pulse Oximetry 97 97 97 Oxygen Delivery Me thod 10/17/23 18:45 10/17/23 18:59 10/17/23 19:00 Temperature Pulse Rate 57 L 65 61 Pulse Rate [Pulse Oximeter] Respiratory Rate Blood Pressure 151/76 H Blood Pressure [Ri ght Arm] Blood Pressure [Ri ght Upper Arm] Pulse Oximetry 97 95 96 Oxygen Delivery Me thod 10/17/23 19:02 10/17/23 19:15 10/17/23 19:30 Temperature Pulse Rate 55 L 61 65 Pulse Rate [Pulse Oximeter] Respiratory Rate Blood Pressure 148/69 H Blood Pressure [Ri ght Arm] Blood Pressure [Ri ght Upper Arm] Pulse Oximetry 97 95 97 Oxygen Delivery Me thod 10/17/23 19:41 10/17/23 19:45 10/17/23 20:00 Temperature Pulse Rate 57 L 61 Pulse Rate [Pulse Oximeter] Respiratory Rate 28 H Blood Pressure Blood Pressure [Ri ght Arm] Blood Pressure [Ri ght Upper Arm] Pulse Oximetry 98 98 Oxygen Delivery Me thod 10/17/23 20:02 10/17/23 20:15 10/17/23 20:32 Temperature Pulse Rate 62 63 67 Pulse Rate [Pulse Oximeter] Respiratory Rate Blood Pressure 127/74 Blood Pressure [Ri ght Arm] Blood Pressure [Ri ght Upper Arm] Pulse Oximetry 100 98 96 Oxygen Delivery Me thod 10/17/23 20:33 10/17/23 20:34 10/17/23 20:45 Temperature Pulse Rate 62 64 60 Pulse Rate [Pulse Oximeter] Respiratory Rate Blood Pressure 140/71 H Blood Pressure [Ri ght Arm] Blood Pressure [Ri ght Upper Arm] Pulse Oximetry 96 95 94 Oxygen Delivery Me thod 10/17/23 21:21 10/17/23 21:21 10/17/23 21:43 Temperature 98.7 F 98.7 F Pulse Rate Pulse Rate [Pulse Oximeter] 95 63 Respiratory Rate 24 24 24 Blood Pressure Blood Pressure [Ri ght Arm] 146/66 H 146/66 H Blood Pressure [Ri ght Upper Arm] Pulse Oximetry 95 95 95 Oxygen Delivery Me thod Room Air Room Air Room Air 10/17/23 21:43 10/17/23 23:00 10/17/23 23:00 Temperature 98.7 F Pulse Rate Pulse Rate [Pulse Oximeter] 66 69 Respiratory Rate 24 20 19 Blood Pressure Blood Pressure [Ri ght Arm] 149/71 H Blood Pressure [Ri ght Upper Arm] Pulse Oximetry 95 99 Oxygen Delivery Me thod Room Air Room Air 10/18/23 03:00 10/18/23 08:14 10/18/23 08:14 Temperature 98.8 F Pulse Rate 74 Pulse Rate [Pulse Oximeter] 69 72 Respiratory Rate 19 22 Blood Pressure Blood Pressure [Ri ght Arm] 145/73 H 127/67 Blood Pressure [Ri ght Upper Arm] Pulse Oximetry 99 98 Oxygen Delivery Me thod Room Air Room Air 10/18/23 08:14 10/18/23 11:00 Temperature 98.3 F Pulse Rate Pulse Rate [Pulse Oximeter] 72 72 Respiratory Rate 22 26 H Blood Pressure Blood Pressure [Ri ght Arm] 143/68 H Blood Pressure [Ri ght Upper Arm] Pulse Oximetry 95 Oxygen Delivery Me thod Room Air Labs Labs: Laboratory Results - last 24 hr 10/17/23 10/17/23 10/17/23 16:20 16:36 17:08 WBC 13.10 H RBC 3.56 L Hgb 11.4 L Hct 34.4 L MCV 97 MCH 32 MCHC 33 RDW Coeff of Oscar 14.4 Plt Count 165 Neut % (Auto) 80.1 H Lymph % (Auto) 9.5 L Crenshaw % (Auto) 9.4 Eos % (Auto) 0.5 Baso % (Auto) 0.3 Neut # (Auto) 10.50 H Lymph # (Auto) 1.20 Crenshaw # (Auto) 1.20 H Eos # (Auto) 0.10 Baso # (Auto) 0.00 Abs Immat Gran (auto) 0.00 Imm/Tot Granulo (auto) 0.2 INR VBG pH 7.405 VBG pCO2 42 VBG pO2 35.3 VBG HCO3 26 Sodium 134 L Potassium 3.3 L Chloride 101 Carbon Dioxide 25 Anion Gap 8 BUN 36 H Creatinine 0.9 Estimated Creat Clear 56.92 Estimated GFR 87 Glucose 124 H Lactate 1.2 Uric Acid 4.1 Calcium 8.4 Ionized Calcium Piper Phosphorus Magnesium Total Bilirubin 0.6 Direct Bilirubin AST 29 ALT 20 Alkaline Phosphatase 97 Troponin I 0.03 C-Reactive Protein 12.5 H NT-Pro-B Natriuret Pep 2600 Total Protein 7.0 Albumin 3.9 Procalcitonin 0.16 TSH Urine Color Yellow Urine Appearance Clear Urine pH 6.5 Ur Specific Gustine 1.025 Urine Protein 2+ A Urine Glucose (UA) Negative Urine Ketones Negative Urine Blood Negative Urine Nitrite Negative Urine Bilirubin Negative Urine Urobilinogen 0.2 Ur Leukocyte Esterase Negative Urine RBC 0-2 Urine WBC 0-2 Ur Squamous Epith Cells Few Urine Bacteria Few A Lab Acknowledgement Test Added 10/17/23 10/17/23 10/17/23 21:27 21:35 21:38 WBC RBC Hgb Hct MCV MCH MCHC RDW Coeff of Oscar Plt Count Neut % (Auto) Lymph % (Auto) Crenshaw % (Auto) Eos % (Auto) Baso % (Auto) Neut # (Auto) Lymph # (Auto) Crenshaw # (Auto) Eos # (Auto) Baso # (Auto) Abs Immat Gran (auto) Imm/Tot Granulo (auto) INR VBG pH VBG pCO2 VBG pO2 VBG HCO3 Sodium Potassium Chloride Carbon Dioxide Anion Gap BUN Creatinine Estimated Creat Clear Estimated GFR Glucose Lactate Uric Acid Calcium Ionized Calcium Piper Phosphorus Magnesium Total Bilirubin Direct Bilirubin AST ALT Alkaline Phosphatase Troponin I C-Reactive Protein NT-Pro-B Natriuret Pep Total Protein Albumin Procalcitonin TSH 2.860 Urine Color Urine Appearance Urine pH Ur Specific Gustine Urine Protein Urine Glucose (UA) Urine Ketones Urine Blood Urine Nitrite Urine Bilirubin Urine Urobilinogen Ur Leukocyte Esterase Urine RBC Urine WBC Ur Squamous Epith Cells Urine Bacteria Lab Acknowledgement New Spec Needed Test Added 10/18/23 05:45 WBC 12.52 H RBC 3.63 L Hgb 11.6 L Hct 34.3 L MCV 95 MCH 32 MCHC 34 RDW Coeff of Oscar 14.2 Plt Count 159 Neut % (Auto) 94.0 H Lymph % (Auto) 3.2 L Crenshaw % (Auto) 1.9 Eos % (Auto) 0.0 Baso % (Auto) 0.2 Neut # (Auto) 11.80 H Lymph # (Auto) 0.40 L Crenshaw # (Auto) 0.20 Eos # (Auto) 0.00 Baso # (Auto) 0.00 Abs Immat Gran (auto) 0.10 Imm/Tot Granulo (auto) 0.7 INR 1.22 H VBG pH VBG pCO2 VBG pO2 VBG HCO3 Sodium 135 Potassium 3.7 Chloride 106 Carbon Dioxide 23 Anion Gap 6 L BUN 31 H Creatinine 0.8 Estimated Creat Clear 58.90 Estimated GFR 91 Glucose 201 H Lactate Uric Acid Calcium 8.5 Ionized Calcium Piper 1.15 Phosphorus 1.6 L Magnesium 1.7 Total Bilirubin 0.6 Direct Bilirubin 0.1 AST 29 ALT 21 Alkaline Phosphatase 104 Troponin I 0.03 C-Reactive Protein 9.0 H NT-Pro-B Natriuret Pep Total Protein 6.8 Albumin 3.5 Procalcitonin TSH Urine Color Urine Appearance Urine pH Ur Specific Gustine Urine Protein Urine Glucose (UA) Urine Ketones Urine Blood Urine Nitrite Urine Bilirubin Urine Urobilinogen Ur Leukocyte Esterase Urine RBC Urine WBC Ur Squamous Epith Cells Urine Bacteria Lab Acknowledgement
[2023-10-18] MEDS: NINTEDANIB 100 MG PO (17:47)
[2023-10-18] MEDS: 0.9 % SODIUM CHLORIDE 250 ml IV (17:48)
[2023-10-18] MEDS: cefTRIAXone 1 GM in 0.9 % SODIUM CHLORIDE Mini-bag 100 ML IVPB (17:50)
--- NOTE | 2023-10-18 18:17 | PC.NURSE ---
End of Shift: Patient pleasant and cooperative. Patient vitally stable lungs clear, BS WNL, IV SL and intact. Patient independent in room. Patient denies pain. Patient urinating and had 1 small BM today. Patient tolerating regular diet. Patient walked the halls with spouse this shift. Tele=Paced.
[2023-10-19 04:05] VITALS: BP 135/73; PULSE 59; RESP 20; TEMP 37.1; O2SAT 96
[2023-10-19] MEDS: IPRAT-ALBUT 0.5-2.5 MG/3 ML NEB 1 NEB IH ×2 (04:06→09:45)
--- NOTE | 2023-10-19 05:24 | PC.NURSE ---
Pt alert and oriented x3. Afebrile, on room air. Pt denies pain, chest pain, SOB, N/V. Pt has fine crackles in bilateral posterior bases of lungs. Pt is up ad taylor in room, voiding, and slept throughout most of night. Night uneventful.
[2023-10-19 06:49] LABS: Hematocrit 31.3 % (37.0-53.0); Hemoglobin* 10.6 gm/dL (13.5-17.5); Mean Corpuscular HGB Conc 34 gm/dL (32-36); Mean Corpuscular Hemoglobin 32 pg (26-34); Mean Corpuscular Volume 95 fL (80-100); Platelet Count* 175 K/uL (140-440); White Blood Count* 18.92 K/uL (4.50-11.00)
[2023-10-19 06:51] LABS: Slide Review Reflex No
[2023-10-19 07:00] VITALS: BP 143/67; PULSE 55; PULSE 65; RESP 16; TEMP 36.6; O2SAT 96
[2023-10-19 07:06] LABS: Chloride* 109 mmol/L (96-114); Potassium* 3.7 mmol/L (3.6-5.1); Sodium* 139 mmol/L (135-149)
[2023-10-19 07:09] LABS: Anion Gap 6 mEq/L (7-15); Blood Urea Nitrogen* 30 mg/dL (7-30); Carbon Dioxide* 24 mmol/L (20-32); Creatinine* 0.8 mg/dL (0.5-1.5); Estimated Glomerular Filt Rate 91 ml/min; Glucose* 143 mg/dL (60-115)
[2023-10-19 07:10] LABS: Calcium* 8.6 mg/dL (8.4-10.6); Phosphorus* 2.9 mg/dL (2.5-4.5)
[2023-10-19] MEDS: predniSONE 20 MG TABLET 40 MG PO (08:41)
[2023-10-19] MEDS: METOPROLOL TARTRATE 25 MG TABLET PO (08:41)
[2023-10-19] MEDS: AZITHROMYCIN 250 MG TABLET PO (08:41)
[2023-10-19] MEDS: dilTIAZem 180 MG CAP (CD) PO (08:41)
[2023-10-19] MEDS: NINTEDANIB 100 MG PO (09:44)
[2023-10-19] MEDS: SODIUM CHLORIDE 0.9 % (FLUSH) 10 ML SYRINGE 5 ML IVF (09:46)
--- NOTE | 2023-10-19 13:50 | PM.DS1 ---
DS: Providers Provider Date Seen: 10/19/23 Date of admission: 10/17/23 21:07 Primary care physician: Neville Bowie MD Admitting Clinician: Radha Gil MD Consults: 10/17/23 21:21 Consult to Occupational Therapy [CONS] Routine Comment: Reason(s) for OT Consult:: Evaluate and Treat Any Restrictions?:: No Restrictions Consult to Physical Therapy [CONS] Routine Comment: Reason(s) for PT Consult:: Evaluate and Treat Any Restrictions?:: No Restrictions Consult to Senior Electronics Technician [CONS] Routine Comment: Reason for Consult:: Social Service Consult Attending Physician on discharge: RAUL Arroyo[facility] Date [facility]charge: 10/19/23 DS: Diagnosis Discharge Diagnosis (1) Community acquired pneumonia: Status: Acute Problem details: Suspected atypical pneumonia in setting of acute exposures from family and increased risk with personal history of cardiopulmonary disease. Patient was managed with ceftriaxone and azithromycin during hospital stay, transitioned to oral azithromycin on discharge to complete a 3 day dose. Patient is discharged with oral prednisone to complete a 5 day course. Leukocytosis noted on admission, up trending, suspected in setting of steroid use. Close follow-up with PCP following hospitalization. (2) Idiopathic pulmonary fibrosis: Status: Acute Problem details: -nintedanib (Ofev) BID (causes him diarrhea; has home med to use) -20lb weight loss ( attributed to chronic diarrhea from the Ofev) Complicating above. No hypoxia. Continued on home medications. (3) Valvular heart disease: Status: Acute Problem details: Repeat echocardiogram 10/2023 completed, results as below. Complicating above. Will need and has close follow-up with Cardiology and pulmonology at [facility] in the upcoming weeks. BNP 2600 Echo August 2019 ([place] [facility]- scan in [employer]) -left atrium is severely dilated -right atrium is mildly dilated -moderate tricuspid regurg -moderately thickened mitral valve leaflets, moderate mitral regurg -left ventricular systolic function is normal -50-55% EF Mild left ventricular hypertrophy Elevated right ventricular pressures at 34 (4) History of second degree heart block: Status: Acute Problem details: -biventricular pacemaker. Troponins were negative, no events noted on telemetry. (5) Chronic kidney disease: Status: Acute Problem details: Creatinine remains stable (6) Essential hypertension: Status: Acute Problem details: Continued on home dose of diltiazem, metoprolol succinate (7) Mild cognitive impairment: Status: Acute Problem details: Resolved on day of discharge. Back to baseline per report (8) Urothelial carcinoma of bladder: Status: Acute Problem details: -left nephrectomy (9) Hypophosphatemia: Status: Acute Problem details: Phosphorus noted to improve to 2.9 from 1.6 following oral supplementation. DS: Summary Hospital Course Hospital Course: [age] year old male past medical history significant for cardiopulmonary disease including valvular heart disease, history of second-degree heart block, idiopathic pulmonary fibrosis, hypertension, CKD, urothelial carcinoma bladder was admitted to the medical floor for further management acute afebrile weakness with cough in setting of multiple family exposures. Course of care and details as noted above. Patient was started on IV antibiotics for suspicion of atypical community-acquired pneumonia. Mentation and weakness noted to significantly improve after 36 hours. Patient is discharged on oral antibiotics and prednisone in setting of clinical improvement. He will need close outpatient follow-up with PCP. Has cardiology and pulmonology workup with [facility] in November. Remainder of chronic medical comorbidities were monitored and managed with home medications. Status at Discharge Overall status at discharge: patient is back to baseline Time Spent with Patient Time attestation: Total time spent providing and/or coordinating discharge services: Time spent: Greater than 30 minutes Exam Narrative: Exam Narrative: PHYSICAL EXAM General: Pleasant, conversant, NAD Cardiovascular: RRR Pulmonary: No dyspnea Neurological: Alert, answering questions appropriately Skin: Warm, dry. Const: Vital Signs, click to edit/add: Vital Signs - 24 hr 10/18/23 15:17 10/18/23 15:17 10/18/23 15:17 Temperature 97.6 F Pulse Rate 56 L Pulse Rate [Pulse Oximeter] 56 L 56 L Respiratory Rate 22 22 Blood Pressure [Ri ght Arm] 133/67 Pulse Oximetry 96 Oxygen Delivery Me thod Room Air 10/18/23 21:30 10/18/23 23:00 10/18/23 23:00 Temperature 98.4 F Pulse Rate 63 Pulse Rate [Pulse Oximeter] 73 73 Respiratory Rate 20 20 Blood Pressure [Ri ght Arm] 135/66 Pulse Oximetry 93 Oxygen Delivery Me thod Room Air 10/19/23 04:05 10/19/23 07:00 10/19/23 07:00 Temperature 98.7 F 97.8 F Pulse Rate 55 L Pulse Rate [Pulse Oximeter] 59 L 65 Respiratory Rate 20 16 Blood Pressure [Ri ght Arm] 135/73 143/67 H Pulse Oximetry 96 96 Oxygen Delivery Me thod Room Air Room Air DS: Data Data Completed and Pending Labs on day of discharge: Labs from last 24 hours 10/19/23 05:53 WBC 18.92 H RBC 3.30 L Hgb 10.6 L Hct 31.3 L MCV 95 MCH 32 MCHC 34 Plt Count 175 Sodium 139 Potassium 3.7 Chloride 109 Carbon Dioxide 24 Anion Gap 6 L BUN 30 Creatinine 0.8 Estimated Creat Clear 58.90 Estimated GFR 91 Glucose 143 H Calcium 8.6 Phosphorus 2.9 Preliminary micro results at discharge 10/17/23 17:30 Blood Culture - Preliminary Blood NO GROWTH AFTER 24 HOURS 10/17/23 16:36 Blood Culture - Preliminary Blood NO GROWTH AFTER 24 HOURS 10/17/23 16:20 Urine Culture - Preliminary Urine,Clean Catch < 10,000 COL/ML MIXED GRAM POSITIVE MADIE ISOLATED NO FURTHER WORKUP Imaging Echo: Attestation: I have reviewed the pertinent imaging results. Radiologist's impression: 1. Normal LV size, mildly increased wall thickness, normal global systolic function with an estimated EF of 65-70% 2. Severely enlarged left and right atria 3. The aortic valve is calcified and trileaflet, no stenosis and no regurgitation. 4. The mitral valve is sclerotic, moderate mitral regurgitation 5. Mitral stenosis with moderately increased mean gradient of 9.8 at a heart rate of 56 6. Severe tricuspid regurgitation 7. 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 The aortic sinuses dilated with a maximal diameter 4.0 cm 9. Moderately increased estimated pulmonary pressures by tricuspid regurgitation velocity in right atrial pressure Discharge Plan Discharge Disposition: Home, Self-Care Date of Admission: 10/17/23 21:07 Attending Provider on Discharge: Terese Zayas Primary Care Provider: Neville Bowie Condition: Improved Anticipated Discharge Date/Time: 10/19/23 13:46 Discharge Medications: New azithromycin 250 mg Tablet 500 mg PO Q24H 3 Days Qty: 6 0RF Taper: Z-LISANDRO 500 mg Q24H for 3 Days and 0 Hour prednisone 20 mg Tablet 40 mg PO DAILYWM 2 Days Qty: 4 0RF Continued allopurinol 300 mg tablet 150 mg PO DAILY atorvastatin 80 mg tablet 80 mg PO DAILY diltiazem HCl [Cardizem CD] 180 mg capsule,extended release 24hr 180 mg PO DAILY metoprolol tartrate 25 mg tablet 25 mg PO BID mirtazapine [Remeron] 15 mg tablet 15 mg feeding tube DAILY aspirin 81 mg capsule 81 mg PO DAILY cyclobenzaprine 10 mg tablet 10 mg PO HS sildenafil [Viagra] 100 mg tablet 100 mg PO DAILY PRN Rx Instructions: administer 30 minutes to 4 hours before activity Ofev 100 mg capsule 100 mg PO Q12H Discontinued zolpidem [Ambien] 10 mg tablet Discharge Orders: Discharge Order (Routine); Ordered 10/19/23 Ordered By: Terese Zayas Patient Education: Community Acquired Pneumonia (GEN) Additional Instructions: Continue oral antibiotics and prednisone for suspected atypical community-acquired pneumonia. Follow-up with PCP for post hospital follow-up. Further follow-up with Cardiology and pulmonology will be helpful as scheduled the upcoming weeks. Activity Level: Activity as Tolerated Discharge Diet: Heart Healthy (2 gm sodium, low fat) Follow Up Appointments: Neville Bowie MD [Primary Care Provider] - 10/31/23 (Post hospital follow-up for weakness, altered mental status, history of significant cardiopulmonary disease ) Forms: Meetmeals Info Instructions
--- NOTE | 2023-10-19 15:49 | PC.NURSE ---
Discharge Note: The patient discharged home with his this afternoon The patient is in good condition no reports of pain or symptoms other than a mild dry cough. Discharge paperwork was reviewed with the patient and his . VSS on RA. Was wheeled out to the car. Prescriptions were sent. Alma Rosa PEPPER BSN
== END 2023-10-19 15:20 | disposition home or self-care (01) ==
LOC: ED 18:12 → MEDSURG 21:08
PROVIDERS: Physician Assistant; Admitting Provider Family Medicine; Emergency Provider Emergency Medicine; PCP Family Medicine; Visit Provider Family Medicine
DX: J18.9 Pneumonia, unspecified organism (principal); R53.1 Weakness; I38 Endocarditis, valve unspecified; D72.829 Elevated white blood cell count, unspecified; R91.8 Other nonspecific abnormal finding of lung field; R79.89 Other specified abnormal findings of blood chemistry; E87.1 Hypo-osmolality and hyponatremia; E87.6 Hypokalemia; R06.02 Shortness of breath; R63.4 Abnormal weight loss; J84.112 Idiopathic pulmonary fibrosis; I42.9 Cardiomyopathy, unspecified; I27.20 Pulmonary hypertension, unspecified; I12.9 Hypertensive chronic kidney disease with stage 1 through stage 4 chronic kidney disease, or unspecified chronic kidney disease; N18.9 Chronic kidney disease, unspecified; E78.5 Hyperlipidemia, unspecified; G31.84 Mild cognitive impairment of uncertain or unknown etiology; C67.9 Malignant neoplasm of bladder, unspecified; E83.39 Other disorders of phosphorus metabolism; R05.9 Cough, unspecified; R09.81 Nasal congestion; R50.9 Fever, unspecified; R53.83 Other fatigue; R26.2 Difficulty in walking, not elsewhere classified; M10.9 Gout, unspecified; R53.81 Other malaise; G47.9 Sleep disorder, unspecified; Z79.82 Long term (current) use of aspirin; Z79.52 Long term (current) use of systemic steroids; Z11.52 Encounter for screening for COVID-19; Z85.820 Personal history of malignant melanoma of skin; Z87.19 Personal history of other diseases of the digestive system; Z85.828 Personal history of other malignant neoplasm of skin; Z86.79 Personal history of other diseases of the circulatory system; Z90.89 Acquired absence of other organs; Z90.5 Acquired absence of kidney; Z98.49 Cataract extraction status, unspecified eye; Z96.1 Presence of intraocular lens; Z95.0 Presence of cardiac pacemaker; Z98.890 Other specified postprocedural states
CPT/HCPCS: 36415; 71046; 71275; 80048; 80053; 80069; 80076; 81001; 82330; 82803; 83605; 83735; 83880; 84100; 84145; 84443; 84484; 84550; 85025; 85027; 85610; 86140; 87040; 87086; 87449; 87631; 87651; 87899; 93005; 93306; 94640; 95992; 96365; 96366; 96367; 96372; 96375; 97116; 97161; 97165; 97530; 97535; 99283; 99285; G0378; A9270; J0456; J0696; J1650; J2930; J7030; J7050; J7512; Q9967

== ENCOUNTER 2024-05-06 16:52 | Emergency (ER) | payer MEDICARE, BC, SELFPAY ==
[2024-05-06] VITALS (14 sets, daily range): BP systolic 124–147; BP diastolic 68–81; PULSE 56–97; RESP 18; TEMP 36.9; O2SAT 95–100; BMI 21.6
--- NOTE | 2024-05-06 17:25 | CRLHL7_ITS ---
For Patients: As a result of the Century Cures Act, medical imaging exams and procedure reports are released immediately into your electronic medical record. You may view this report before your referring provider. If you have questions, please contact your health care provider. INDICATION: Shortness of breath. TECHNIQUE: CT chest PE was acquired with 95 cc Isovue 370 IV contrast. COMPARISON: None. FINDINGS: Heart and vasculature: Contrast opacification of the pulmonary arterial tree is adequate. No sign of pulmonary embolism. Heart size is normal. Ectasia of the ascending aorta measuring 4.4 cm. Normal caliber main pulmonary artery. Heavy coronary artery and mitral annulus calcification. Lungs and pleura: Scattered mild subpleural fibrotic changes. No consolidation. No discrete suspicious pulmonary nodule identified. No pleural effusions, pleural thickening, or pneumothorax. Lymph nodes/mediastinum: Multiple enlarged left axillary lymph nodes, measuring up to 2 cm in short axis. There is also an enlarged left supraclavicular lymph node (5/34), measuring 1.2 cm in short axis. No mediastinal or hilar lymphadenopathy. Chest wall: Left chest cardiac device. Upper abdomen: No acute or significant findings. Bones: Findings compatible with diffuse idiopathic skeletal hyperostosis. No acute bony abnormality. IMPRESSION: 1. No pulmonary embolism. 2. Multiple enlarged left axillary lymph nodes, likely represents malignancy such as lymphoma, or metastatic disease. These are amenable to biopsy with ultrasound. Additional enlarged left supraclavicular lymph node. 3. Dilated ascending aorta measuring 4.4 cm in diameter. Please note that all CT scans at this facility use dose modulation, iterative reconstruction, and/or weight-based dosing when appropriate to reduce radiation dose to as low as reasonably achievable. Dictated by Silverio Dowd MD @ 05/06/2024 7:37:04 PM (Electronically Signed)
--- NOTE | 2024-05-06 17:26 | ED.GENADULT ---
HPI - General Adult General Date Seen: 05/06/24 Chief complaint: Shortness of Breath/Dyspnea Stated complaint: shortness of breath Time Seen by Provider: 05/06/24 16:57 Source: patient and family Mode of arrival: ambulatory Limitations: no limitations History of Present Illness HPI narrative: Patient is a 78-year-old male here with his for evaluation of shortness of breath. He has a history of bladder cancer, status post nephrectomy, currently undergoing what his says they refer to as ?gentle chemotherapy?. He has pulmonary fibrosis and their goal is to give chemotherapy without causing worsening of this. He has been more short of breath the past week, apparently was seen in clinic last Saturday for chemo and mentioned increasing shortness of breath so a CT scan was done to rule out pulmonary embolism which patient reports did not show PE but did show mild worsening of his pulmonary fibrosis. His says he got even more short of breath starting about Saturday. He has not had any chest pain. He has not had fevers or cough, lower extremity swelling pain, nausea vomiting, diarrhea, black or bloody stools. He feels more short of breath with exertion than he does at rest. He denies orthopnea or PND. No history of heart failure or blood clots. Related Data Home Medications ?Medication ?Instructions ?Recorded ?Confirmed allopurinol 300 mg tablet 150 mg PO DAILY 10/17/23 05/06/24 aspirin 81 mg capsule 81 mg PO DAILY 10/17/23 05/06/24 atorvastatin 80 mg tablet 80 mg PO DAILY 10/17/23 05/06/24 cyclobenzaprine 10 mg tablet 10 mg PO HS 10/17/23 05/05/24 diltiazem HCl 180 mg 180 mg PO DAILY 10/17/23 05/06/24 capsule,extended release 24 hr (Cardizem CD) metoprolol tartrate 25 mg tablet 25 mg PO BID 10/17/23 05/06/24 mirtazapine 15 mg tablet (Remeron) 22.5 mg feeding tube HS 10/17/23 05/06/24 sildenafil 100 mg tablet (Viagra) 100 mg PO DAILY PRN 10/17/23 05/06/24 nintedanib 100 mg capsule (Ofev) 100 mg PO Q12H 10/18/23 05/06/24 Allergies Allergy/AdvReac Type Severity Reaction Status Date / Time bupropion AdvReac Intermediate Myalgias Verified 05/06/24 18:51 Review of Systems Status of ROS: Reports: 10 or more systems reviewed and unremarkable except as noted in History and below [facility] Medical History Essential hypertension ?I10 - Essential (primary) hypertension (ICD-10) History of SCC (squamous cell carcinoma) of skin ?Z85.828 - Personal history of other malignant neoplasm of skin (ICD-10) History of basal cell carcinoma (BCC) ?Z85.828 - Personal history of other malignant neoplasm of skin (ICD-10) History of melanoma ?Z85.820 - Personal history of malignant melanoma of skin (ICD-10) Mild cognitive impairment ?G31.84 - Mild cognitive impairment of uncertain or unknown etiology (ICD-10) Erectile dysfunction ?N52.9 - Male erectile dysfunction, unspecified (ICD-10) Urothelial carcinoma of bladder ?C67.9 - Malignant neoplasm of bladder, unspecified (ICD-10) Chronic kidney disease ?N18.9 - Chronic kidney disease, unspecified (ICD-10) Gout ?M10.9 - Gout, unspecified (ICD-10) Valvular heart disease ?I38 - Endocarditis, valve unspecified (ICD-10) Idiopathic pulmonary fibrosis ?J84.112 - Idiopathic pulmonary fibrosis (ICD-10) History of second degree heart block ?Z86.79 - Personal history of other diseases of the circulatory system (ICD-10) Tinnitus ?H93.19 - Tinnitus, unspecified ear (ICD-10) Paroxysmal SVT (supraventricular tachycardia) ?I47.10 - Supraventricular tachycardia, unspecified (ICD-10) Hyperlipidemia ?E78.5 - Hyperlipidemia, unspecified (ICD-10) Surgical History History of hernia repair ?Z98.890 - Other specified postprocedural states (ICD-10) ?Z87.19 - Personal history of other diseases of the digestive system (ICD-10) History of tonsillectomy ?Z90.89 - Acquired absence of other organs (ICD-10) H/O cataract removal with insertion of prosthetic lens ?Z98.49 - Cataract extraction status, unspecified eye (ICD-10) ?Z96.1 - Presence of intraocular lens (ICD-10) Status post Dupuytren's fasciectomy ?Z98.890 - Other specified postprocedural states (ICD-10) Status post nephrectomy ?Z90.5 - Acquired absence of kidney (ICD-10) Status post biventricular pacemaker ?Z95.0 - Presence of cardiac pacemaker (ICD-10) Social History What is your current living situation?: I presently have a place to live Problems where you live: no known problems Problems where you live details: n/a In the past 12 months, utilities in danger of being shut off: no In past 12 months, lack of transportation kept you from medical appts, meetings, work, or getting things needed for daily living: no In the past 12 mos, have been you worried that your food would run out before you had money to buy more?: never true In the past 12 mos, the food you bought just didn't last and you didn't have money to buy more?: never true Highest level of school completed/degree received: Doctoral degree Smoking Status: Former smoker What tobacco products do you use: pipe How often do you have a drink containing alcohol: 2-3 times a week How many standard drinks containing alcohol do you have on a typical day: 1 or 2 How often do you have six or more drinks on one occasion: Never AUDIT-C Alcohol total score: 3 Non-prescribed substance use: denies use Caffeine: Yes (coffee) How often does anyone, including family, friends and others, physically hurt you: never How often does anyone, including family, friends and others, insult or talk down to you: never How often does anyone, including family, friends and others, threaten you with harm: never How often does anyone, including family, friends and others, scream or curse at you: never service: Yes Exam Narrative: Exam Narrative: Vital signs as noted above. In general, an alert, nontoxic male. Breathing easily, speaks in full sentences. He is thin, fragile appearing. Head: Normocephalic, atraumatic. Eyes: Pupils are equal reactive. Extraocular movements are full. Conjunctivae are normal. ENT: Mucous membranes are moist. Neck: Supple without lymphadenopathy. Heart: Regular rate and rhythm. No murmur or rub. Lungs: He has an occasional coarse crackle at the bases, no wheezes, no increased work of breathing. Breath sounds are equal. Abdomen: Soft and nontender. Extremities: Well perfused. No edema. No calf tenderness. Pulses intact. Neurologic: Patient is alert and oriented to person and place. Speech is fluent. Face is symmetric. Moves all extremities equally. Affect: Normal. Skin: Warm and dry. Well perfused. Const: Vital Signs, click to edit/add: Vital Signs - 24 hr 05/06/24 16:57 05/06/24 18:03 05/06/24 18:04 Temperature 98.4 F Pulse Rate 58 L 58 L Pulse Rate [Pulse Oximeter] 97 Respiratory Rate 18 Blood Pressure 133/71 Blood Pressure [Ri ght Upper Arm] 147/81 H Pulse Oximetry 97 99 98 Oxygen Delivery Me thod Room Air 05/06/24 18:15 05/06/24 18:30 05/06/24 18:32 Temperature Pulse Rate 62 60 60 Pulse Rate [Pulse Oximeter] Respiratory Rate Blood Pressure 124/68 Blood Pressure [Ri ght Upper Arm] Pulse Oximetry 98 98 99 Oxygen Delivery Me thod 05/06/24 18:45 05/06/24 19:09 05/06/24 19:15 Temperature Pulse Rate 58 L 66 58 L Pulse Rate [Pulse Oximeter] Respiratory Rate Blood Pressure Blood Pressure [Ri ght Upper Arm] Pulse Oximetry 99 95 100 Oxygen Delivery Me thod 05/06/24 19:29 05/06/24 19:30 05/06/24 19:32 Temperature Pulse Rate 59 L 61 58 L Pulse Rate [Pulse Oximeter] Respiratory Rate Blood Pressure 132/69 130/71 Blood Pressure [Ri ght Upper Arm] Pulse Oximetry 99 99 99 Oxygen Delivery Me thod 05/06/24 19:33 05/06/24 19:45 Temperature Pulse Rate 58 L 56 L Pulse Rate [Pulse Oximeter] Respiratory Rate Blood Pressure Blood Pressure [Ri ght Upper Arm] Pulse Oximetry 100 100 Oxygen Delivery Me thod Documenting provider has reviewed patient's vital signs: yes Course Course ED Course: I reviewed his echo from October of 2023, he has right atrial and right ventricular enlargement and severe tricuspid regurgitation. EF is normal. No significant aortic pathology. I do not have access to records from [place], but they tell me that his CT scan last week was unremarkable for acute findings. However, his feels that his symptoms worsened on Saturday, she says she talked to the nurse at [place] today who strongly recommended that they come to the ER for repeat evaluation. I checked routine labs including a CBC which showed mild anemia with a hemoglobin 10.3, this is consistent with his baseline. White count is normal at 5.7, he does have thrombocytopenia with 57,000 platelets. The thrombocytopenia is new compared to October of 2023. Metabolic panel shows normal electrolytes, normal CO2, BUN of 41, creatinine of 0.9. Blood sugars normal, he has mild elevations in his transaminases of 40 and 51 respectively. Other lab LFTs are normal, CRP is 1.1 and BNP is 364. TSH is normal. Viral swab for COVID, influenza and RSV is negative. CT scan read as follows by Radiology:FINDINGS: Heart and vasculature: Contrast opacification of the pulmonary arterial tree is adequate. No sign of pulmonary embolism. Heart size is normal. Ectasia of the ascending aorta measuring 4.4 cm. Normal caliber main pulmonary artery. Heavy coronary artery and mitral annulus calcification. Lungs and pleura: Scattered mild subpleural fibrotic changes. No consolidation. No discrete suspicious pulmonary nodule identified. No pleural effusions, pleural thickening, or pneumothorax. Lymph nodes/mediastinum: Multiple enlarged left axillary lymph nodes, measuring up to 2 cm in short axis. There is also an enlarged left supraclavicular lymph node (5/34), measuring 1.2 cm in short axis. No mediastinal or hilar lymphadenopathy. Chest wall: Left chest cardiac device. Upper abdomen: No acute or significant findings. Bones: Findings compatible with diffuse idiopathic skeletal hyperostosis. No acute bony abnormality. IMPRESSION: 1. No pulmonary embolism. 2. Multiple enlarged left axillary lymph nodes, likely represents malignancy such as lymphoma, or metastatic disease. These are amenable to biopsy with ultrasound. Additional enlarged left supraclavicular lymph node. 3. Dilated ascending aorta measuring 4.4 cm in diameter. Discussed with patient and family, I do not find any acute cardiopulmonary abnormalities to explain his shortness of breath. There is no evidence of PE, pneumonia, pneumothorax, pleural effusion, congestive heart failure. He is not significantly anemic. He was ambulatory around the emergency department, asymptomatic at that time with normal O2 sats of 97-99%. I think discharge home is reasonable, I think he should follow up with his team at [place] to see if further evaluation or treatment is warranted. If he is dramatically worse, has severe shortness of breath, chest pain, fevers, vomiting, other worsening, return any time to the emergency department. Vital Signs Vital signs: Initial Vital Signs Respiratory Effort Normal, Spontaneous, Non-Labored 05/06/24 16:55 Respiratory Depth Normal 05/06/24 16:55 Vital Signs Temperature 98.4 F 05/06/24 16:57 Pulse Rate 97 05/06/24 16:57 Respiratory Rate 18 05/06/24 16:57 Blood Pressure 147/81 H 05/06/24 16:57 Pulse Oximetry 97 05/06/24 16:57 Oxygen Delivery Method Room Air 05/06/24 16:57 Temperature 98.4 F 05/06/24 16:57 Pulse Rate 56 L 05/06/24 19:45 Respiratory Rate 18 05/06/24 16:57 Blood Pressure 130/71 05/06/24 19:32 Pulse Oximetry 100 05/06/24 19:45 Oxygen Delivery Method Room Air 05/06/24 16:57 Medications Administered Medications: Discontinued Medications Generic Name Dose Route Start Last Admin Trade Name Freq PRN Reason Stop Dose Admin Sodium Chloride 500 mls @ 500 mls/hr 05/06/24 17:24 05/06/24 19:55 0.9 % Sodium Chloride 500 Ml IV 05/06/24 18:23 Infused .Q1H ONE Infusion Medical Decision Making Lab Data Labs: Lab Results 05/06/24 05/06/24 05/06/24 Range/Units 17:26 17:54 17:54 WBC 5.73 (4.50-11.00) K/uL RBC 3.27 L (4.30-5.90) m/uL Hgb 10.3 L (13.5-17.5) gm/dL Hct 31.0 L (37.0-53.0) % MCV 95 (80-100) fL MCH 32 (26-34) pg MCHC 33 (32-36) gm/dL RDW Coeff of Oscar 15.8 H (11.5-15.5) % Plt Count 57 L (140-440) K/uL Neut % (Auto) 53.9 (42.0-72.0) % Lymph % (Auto) 24.6 (20-44) % Mcminn % (Auto) 19.2 H (0.0-11.0) % Eos % (Auto) 0.2 (0.0-7.0) % Baso % (Auto) 0.2 (0.0-3.0) % Neut # (Auto) 3.09 (1.7-7.0) K/uL Lymph # (Auto) 1.41 (0.90-2.90) K/uL Mcminn # (Auto) 1.10 H (0.00-0.90) K/UL Eos # (Auto) 0.01 (0.00-0.50) K/uL Baso # (Auto) 0.01 (0.00-0.30) K/uL Abs Immat Gran (auto) 0.11 (0.00-0.30) K/uL Imm/Tot Granulo (auto) 1.9 % Sodium Cancelled 137 Potassium Cancelled Chloride Carbon Dioxide Anion Gap BUN Creatinine Estimated Creat Clear Estimated GFR Glucose Calcium Total Bilirubin (0.1-1.5) mg/dL Direct Bilirubin (0.0-0.5) mg/dL AST (12-35) U/L ALT (4-50) U/L Alkaline Phosphatase (40-150) U/L C-Reactive Protein NT-Pro-B Natriuret Pep pg/mL Total Protein (6.0-8.3) g/dL Albumin (3.3-5.0) g/dL TSH (0.270-4.200) uIU/mL SARS-CoV-2 (PCR) (Negative) Influenza Type A (PCR) (Negative) Influenza Type B (PCR) (Negative) RSV (PCR) (Negative) POC Troponin I 0.01 (0.01-0.04) ng/ml 05/06/24 05/06/24 05/06/24 Range/Units 17:54 17:54 17:54 WBC (4.50-11.00) K/uL RBC (4.30-5.90) m/uL Hgb (13.5-17.5) gm/dL Hct (37.0-53.0) % MCV (80-100) fL MCH (26-34) pg MCHC (32-36) gm/dL RDW Coeff of Oscar (11.5-15.5) % Plt Count (140-440) K/uL Neut % (Auto) (42.0-72.0) % Lymph % (Auto) (20-44) % Mcminn % (Auto) (0.0-11.0) % Eos % (Auto) (0.0-7.0) % Baso % (Auto) (0.0-3.0) % Neut # (Auto) (1.7-7.0) K/uL Lymph # (Auto) (0.90-2.90) K/uL Mcminn # (Auto) (0.00-0.90) K/UL Eos # (Auto) (0.00-0.50) K/uL Baso # (Auto) (0.00-0.30) K/uL Abs Immat Gran (auto) (0.00-0.30) K/uL Imm/Tot Granulo (auto) % Sodium Potassium 4.0 Chloride Cancelled 104 Carbon Dioxide Cancelled 27 Anion Gap Cancelled BUN Creatinine Estimated Creat Clear Estimated GFR Glucose Calcium Total Bilirubin (0.1-1.5) mg/dL Direct Bilirubin (0.0-0.5) mg/dL AST (12-35) U/L ALT (4-50) U/L Alkaline Phosphatase (40-150) U/L C-Reactive Protein NT-Pro-B Natriuret Pep pg/mL Total Protein (6.0-8.3) g/dL Albumin (3.3-5.0) g/dL TSH (0.270-4.200) uIU/mL SARS-CoV-2 (PCR) (Negative) Influenza Type A (PCR) (Negative) Influenza Type B (PCR) (Negative) RSV (PCR) (Negative) POC Troponin I (0.01-0.04) ng/ml 05/06/24 05/06/24 05/06/24 Range/Units 17:54 17:54 17:54 WBC (4.50-11.00) K/uL RBC (4.30-5.90) m/uL Hgb (13.5-17.5) gm/dL Hct (37.0-53.0) % MCV (80-100) fL MCH (26-34) pg MCHC (32-36) gm/dL RDW Coeff of Oscar (11.5-15.5) % Plt Count (140-440) K/uL Neut % (Auto) (42.0-72.0) % Lymph % (Auto) (20-44) % Mcminn % (Auto) (0.0-11.0) % Eos % (Auto) (0.0-7.0) % Baso % (Auto) (0.0-3.0) % Neut # (Auto) (1.7-7.0) K/uL Lymph # (Auto) (0.90-2.90) K/uL Mcminn # (Auto) (0.00-0.90) K/UL Eos # (Auto) (0.00-0.50) K/uL Baso # (Auto) (0.00-0.30) K/uL Abs Immat Gran (auto) (0.00-0.30) K/uL Imm/Tot Granulo (auto) % Sodium Potassium Chloride Carbon Dioxide Anion Gap 6 L BUN Cancelled 41 H Creatinine Cancelled 0.9 Estimated Creat Clear Cancelled Estimated GFR Glucose Calcium Total Bilirubin (0.1-1.5) mg/dL Direct Bilirubin (0.0-0.5) mg/dL AST (12-35) U/L ALT (4-50) U/L Alkaline Phosphatase (40-150) U/L C-Reactive Protein NT-Pro-B Natriuret Pep pg/mL Total Protein (6.0-8.3) g/dL Albumin (3.3-5.0) g/dL TSH (0.270-4.200) uIU/mL SARS-CoV-2 (PCR) (Negative) Influenza Type A (PCR) (Negative) Influenza Type B (PCR) (Negative) RSV (PCR) (Negative) POC Troponin I (0.01-0.04) ng/ml 05/06/24 05/06/24 05/06/24 Range/Units 17:54 17:54 17:54 WBC (4.50-11.00) K/uL RBC (4.30-5.90) m/uL Hgb (13.5-17.5) gm/dL Hct (37.0-53.0) % MCV (80-100) fL MCH (26-34) pg MCHC (32-36) gm/dL RDW Coeff of Oscar (11.5-15.5) % Plt Count (140-440) K/uL Neut % (Auto) (42.0-72.0) % Lymph % (Auto) (20-44) % Mcminn % (Auto) (0.0-11.0) % Eos % (Auto) (0.0-7.0) % Baso % (Auto) (0.0-3.0) % Neut # (Auto) (1.7-7.0) K/uL Lymph # (Auto) (0.90-2.90) K/uL Mcminn # (Auto) (0.00-0.90) K/UL Eos # (Auto) (0.00-0.50) K/uL Baso # (Auto) (0.00-0.30) K/uL Abs Immat Gran (auto) (0.00-0.30) K/uL Imm/Tot Granulo (auto) % Sodium Potassium Chloride Carbon Dioxide Anion Gap BUN Creatinine Estimated Creat Clear 55.46 Estimated GFR Cancelled 87 Glucose Cancelled 115 Calcium Cancelled Total Bilirubin (0.1-1.5) mg/dL Direct Bilirubin (0.0-0.5) mg/dL AST (12-35) U/L ALT (4-50) U/L Alkaline Phosphatase (40-150) U/L C-Reactive Protein NT-Pro-B Natriuret Pep pg/mL Total Protein (6.0-8.3) g/dL Albumin (3.3-5.0) g/dL TSH (0.270-4.200) uIU/mL SARS-CoV-2 (PCR) (Negative) Influenza Type A (PCR) (Negative) Influenza Type B (PCR) (Negative) RSV (PCR) (Negative) POC Troponin I (0.01-0.04) ng/ml 05/06/24 05/06/24 Range/Units 17:54 17:54 WBC (4.50-11.00) K/uL RBC (4.30-5.90) m/uL Hgb (13.5-17.5) gm/dL Hct (37.0-53.0) % MCV (80-100) fL MCH (26-34) pg MCHC (32-36) gm/dL RDW Coeff of Oscar (11.5-15.5) % Plt Count (140-440) K/uL Neut % (Auto) (42.0-72.0) % Lymph % (Auto) (20-44) % Mcminn % (Auto) (0.0-11.0) % Eos % (Auto) (0.0-7.0) % Baso % (Auto) (0.0-3.0) % Neut # (Auto) (1.7-7.0) K/uL Lymph # (Auto) (0.90-2.90) K/uL Mcminn # (Auto) (0.00-0.90) K/UL Eos # (Auto) (0.00-0.50) K/uL Baso # (Auto) (0.00-0.30) K/uL Abs Immat Gran (auto) (0.00-0.30) K/uL Imm/Tot Granulo (auto) % Sodium Potassium Chloride Carbon Dioxide Anion Gap BUN Creatinine Estimated Creat Clear Estimated GFR Glucose Calcium 8.8 Total Bilirubin 0.4 (0.1-1.5) mg/dL Direct Bilirubin 0.3 (0.0-0.5) mg/dL AST 40 H (12-35) U/L ALT 51 H (4-50) U/L Alkaline Phosphatase 87 (40-150) U/L C-Reactive Protein Cancelled 1.1 H NT-Pro-B Natriuret Pep 364 pg/mL Total Protein 6.7 (6.0-8.3) g/dL Albumin 4.1 (3.3-5.0) g/dL TSH 1.980 (0.270-4.200) uIU/mL SARS-CoV-2 (PCR) Negative SARS-CoV-2 (Negative) Influenza Type A (PCR) Negative PCR FLU A (Negative) Influenza Type B (PCR) Negative PCR FLU B (Negative) RSV (PCR) Negative PCR RSV (Negative) POC Troponin I (0.01-0.04) ng/ml Discharge Plan Discharge Clinical Impression: Increasing shortness of breath, Pulmonary fibrosis, Bladder cancer Patient Disposition: Home, Self-Care Condition: Stable Instructions: Shortness of Breath (ED) Additional Instructions: Your evaluation today does not show evidence of blood clots, pneumonia or other infection, fluid collections, heart failure, laboratory abnormalities or other findings that explain your symptoms. Your oxygen levels with walking remained normal at 97- 99% I would recommend that you follow-up with your team at [place] regarding further evaluation as indicated. If shortness of breath is progressive or severe, if you have new symptoms such as fever, chest pain, lightheadedness or fainting, return to the emergency department at any time. Prescriptions: No Action allopurinol 300 mg tablet 150 mg PO DAILY atorvastatin 80 mg tablet 80 mg PO DAILY diltiazem HCl [Cardizem CD] 180 mg capsule,extended release 24hr 180 mg PO DAILY metoprolol tartrate 25 mg tablet 25 mg PO BID mirtazapine [Remeron] 15 mg tablet 22.5 mg feeding tube HS aspirin 81 mg capsule 81 mg PO DAILY cyclobenzaprine 10 mg tablet 10 mg PO HS sildenafil [Viagra] 100 mg tablet 100 mg PO DAILY PRN Rx Instructions: administer 30 minutes to 4 hours before activity Ofev 100 mg capsule 100 mg PO Q12H Follow Up/Referrals: Neville Bowie MD [Primary Care Provider] - Stand Alone Forms: [employer] Info Instructions
[2024-05-06] MEDS: 0.9 % SODIUM CHLORIDE 500 ML 500 ML IV (17:50)
[2024-05-06 18:07] LABS: Basophils Absolute Auto 0.01 K/uL (0.00-0.30); Basophils Percent Auto 0.2 % (0.0-3.0); Eosinophils Absolute Auto 0.01 K/uL (0.00-0.50); Eosinophils Percent Auto 0.2 % (0.0-7.0); Hemoglobin* 10.3 gm/dL (13.5-17.5); Immature Granulocytes Abs Auto 0.11 K/uL (0.00-0.30); Immature Granulocytes Pct Auto 1.9 %; Lymphocytes Absolute Auto 1.41 K/uL (0.90-2.90); Lymphocytes Percent Auto 24.6 % (20-44); Mean Corpuscular HGB Conc 33 gm/dL (32-36); Mean Corpuscular Hemoglobin 32 pg (26-34); Mean Corpuscular Volume 95 fL (80-100); Monocytes Percent Auto 19.2 % (0.0-11.0); Neutrophils Absolute Auto 3.09 K/uL (1.7-7.0); Neutrophils Percent Auto 53.9 % (42.0-72.0); Platelet Count* 57 K/uL (140-440); RDW Coefficient of Variation % 15.8 % (11.5-15.5); Red Blood Count 3.27 m/uL (4.30-5.90); White Blood Count* 5.73 K/uL (4.50-11.00)
[2024-05-06 18:08] LABS: Slide Review Reflex No
[2024-05-06 18:10] LABS: Troponin, Point-of-Care* 0.01 ng/ml (0.01-0.04)
[2024-05-06 18:31] LABS: Albumin* 4.1 g/dL (3.3-5.0); Chloride* 104 mmol/L (96-114)
[2024-05-06 18:32] LABS: Sodium* 137 mmol/L (135-149)
[2024-05-06 18:34] LABS: Creatinine* 0.9 mg/dL (0.5-1.5); Est. Creatinine Clearance* 55.46; Estimated Glomerular Filt Rate 87 ml/min
[2024-05-06 18:35] LABS: Alanine Aminotransferase* 51 U/L (4-50); Alkaline Phosphatase* 87 U/L (40-150); Anion Gap 6 mEq/L (7-15); Aspartate Amino Transferase* 40 U/L (12-35); Bilirubin Direct* 0.3 mg/dL (0.0-0.5); Bilirubin Total* 0.4 mg/dL (0.1-1.5); Blood Urea Nitrogen* 41 mg/dL (7-30); Carbon Dioxide* 27 mmol/L (20-32); Glucose* 115 mg/dL (60-115); Total Protein* 6.7 g/dL (6.0-8.3)
[2024-05-06 18:36] LABS: Calcium* 8.8 mg/dL (8.4-10.6)
[2024-05-06 18:38] LABS: C Reactive Protein* 1.1 mg/dL (0.5-1.0)
[2024-05-06 18:44] LABS: NT Pro B Type NatriureticPept* 364 pg/mL
[2024-05-06 18:48] LABS: PCR FLU A Negative PCR FLU A (Negative); PCR FLU B Negative PCR FLU B (Negative); PCR RSV Negative PCR RSV (Negative); SARS PCR* Negative SARS-CoV-2 (Negative)
== END 2024-05-06 20:15 | disposition home or self-care (01) ==
PROVIDERS: Emergency Provider Emergency Medicine; PCP Family Medicine
DX: J84.10 Pulmonary fibrosis, unspecified (principal); C67.9 Malignant neoplasm of bladder, unspecified
CPT/HCPCS: 36415; 71275; 80048; 80076; 83880; 84443; 84484; 85025; 86140; 87631; 99284; J7030; Q9967

== ENCOUNTER 2024-07-27 14:13 | Emergency (ER) | payer MEDICARE, OTHER, SELFPAY ==
[2024-07-27] VITALS (10 sets, daily range): BP systolic 117–118; BP diastolic 68–78; PULSE 50–56; RESP 16; TEMP 36.1; O2SAT 95–98; BMI 23.4
[2024-07-27 15:36] LABS: Eosinophils Absolute Auto 0.01 K/uL (0.00-0.50); Eosinophils Percent Auto 0.1 % (0.0-7.0); Hematocrit 38.5 % (37.0-53.0); Hemoglobin* 12.5 gm/dL (13.5-17.5); Immature Granulocytes Abs Auto 0.06 K/uL (0.00-0.30); Immature Granulocytes Pct Auto 0.6 %; Lymphocytes Percent Auto 5.2 % (20-44); Mean Corpuscular HGB Conc 33 gm/dL (32-36); Mean Corpuscular Hemoglobin 35 pg (26-34); Mean Corpuscular Volume 108 fL (80-100); Monocytes Percent Auto 3.2 % (0.0-11.0); Neutrophils Percent Auto 90.9 % (42.0-72.0); Platelet Count* 165 K/uL (140-440); RDW Coefficient of Variation % 17.9 % (11.5-15.5); Red Blood Count 3.57 m/uL (4.30-5.90); White Blood Count* 9.38 K/uL (4.50-11.00)
[2024-07-27 15:40] LABS: Slide Review Reflex No
[2024-07-27 15:47] LABS: Troponin, Point-of-Care* 0.05 ng/ml (0.01-0.04)
[2024-07-27 15:49] LABS: Chloride* 104 mmol/L (96-114)
[2024-07-27 15:50] LABS: Potassium* 4.3 mmol/L (3.6-5.1); Sodium* 135 mmol/L (135-149)
[2024-07-27 15:52] LABS: Creatinine* 0.9 mg/dL (0.5-1.5); Est. Creatinine Clearance* 54.94; Estimated Glomerular Filt Rate 87 ml/min
[2024-07-27 15:53] LABS: Anion Gap 9 mEq/L (7-15); Blood Urea Nitrogen* 36 mg/dL (7-30); Calcium* 8.9 mg/dL (8.4-10.6); Carbon Dioxide* 22 mmol/L (20-32); Magnesium* 1.8 mg/dL (1.5-2.6)
[2024-07-27 15:55] LABS: Glucose* 385 mg/dL (60-115)
--- NOTE | 2024-07-27 16:45 | ED_ITS ---
HPI - General Adult General Chief complaint: Arrhythmia/Palpitations Stated complaint: AFIB Time Seen by Provider: 07/27/24 14:30 History of Present Illness HPI narrative: This 78-year-old male was told to come in for evaluation by his cardiology team at [place]. He has a pacemaker and images were sent through the module at home and there were indications of new onset atrial fibrillation. The patient states that he has been having some lightheadedness episodes when upright. He has a medical history including metastatic cancer and pulmonary fibrosis. He states that those 2 conditions are rather stable now. He is currently on a steroid. He also is taking metoprolol. He denies having any chest pain. Related Data Home Medications ?Medication ?Instructions ?Recorded ?Confirmed allopurinol 300 mg tablet 150 mg PO DAILY 10/17/23 05/06/24 aspirin 81 mg capsule 81 mg PO DAILY 10/17/23 05/06/24 atorvastatin 80 mg tablet 80 mg PO DAILY 10/17/23 05/06/24 cyclobenzaprine 10 mg tablet 10 mg PO HS 10/17/23 05/05/24 diltiazem HCl 180 mg 180 mg PO DAILY 10/17/23 05/06/24 capsule,extended release 24 hr (Cardizem CD) metoprolol tartrate 25 mg tablet 25 mg PO BID 10/17/23 05/06/24 mirtazapine 15 mg tablet (Remeron) 22.5 mg feeding tube HS 10/17/23 05/06/24 sildenafil 100 mg tablet (Viagra) 100 mg PO DAILY PRN 10/17/23 05/06/24 nintedanib 100 mg capsule (Ofev) 100 mg PO Q12H 10/18/23 05/06/24 Previous Rx's ?Medication ?Instructions ?Recorded apixaban 5 mg (74 tabs) tablets in See Rx Instructions PO .COMPLEX 07/27/24 a dose pack ([employer] DVT-PE Treat #74 ea 30D Start) Allergies Allergy/AdvReac Type Severity Reaction Status Date / Time bupropion AdvReac Intermediate Myalgias Verified 07/27/24 14:30 Review of Systems Status of ROS: Reports: 10 or more systems reviewed and unremarkable except as noted in History and below Narrative: Constitutional: No fevers, no weight gain or loss. Eyes: No discharge. No vision changes. HENT: No congestion, no sore throat, no ear pain. Cardiovascular: No chest pain, no palpitations. Respiratory: No shortness of breath, no wheezes, no cough. Gastrointestinal: No abdominal pain, no vomiting, no diarrhea. Genitourinary: No dysuria, no hematuria. Musculoskeletal: Normal range of motion. Skin: No rashes, no pruritis. Neurological: No weakness, sensory change, speech change. He reports some lightheadedness episodes when upright at times. Endo/Heme/Allergies: No bruising or bleeding. No polydipsia. Pysch: no suicidality, no anxiety, no insomnia. All other systems reviewed and are negative. [facility] Medical History Essential hypertension ?I10 - Essential (primary) hypertension (ICD-10) History of SCC (squamous cell carcinoma) of skin ?Z85.828 - Personal history of other malignant neoplasm of skin (ICD-10) History of basal cell carcinoma (BCC) ?Z85.828 - Personal history of other malignant neoplasm of skin (ICD-10) History of melanoma ?Z85.820 - Personal history of malignant melanoma of skin (ICD-10) Mild cognitive impairment ?G31.84 - Mild cognitive impairment of uncertain or unknown etiology (ICD-10) Erectile dysfunction ?N52.9 - Male erectile dysfunction, unspecified (ICD-10) Urothelial carcinoma of bladder ?C67.9 - Malignant neoplasm of bladder, unspecified (ICD-10) Chronic kidney disease ?N18.9 - Chronic kidney disease, unspecified (ICD-10) Gout ?M10.9 - Gout, unspecified (ICD-10) Valvular heart disease ?I38 - Endocarditis, valve unspecified (ICD-10) Idiopathic pulmonary fibrosis ?J84.112 - Idiopathic pulmonary fibrosis (ICD-10) History of second degree heart block ?Z86.79 - Personal history of other diseases of the circulatory system (ICD- 10) Tinnitus ?H93.19 - Tinnitus, unspecified ear (ICD-10) Paroxysmal SVT (supraventricular tachycardia) ?I47.10 - Supraventricular tachycardia, unspecified (ICD-10) Hyperlipidemia ?E78.5 - Hyperlipidemia, unspecified (ICD-10) Surgical History History of hernia repair ?Z98.890 - Other specified postprocedural states (ICD-10) ?Z87.19 - Personal history of other diseases of the digestive system (ICD-10) History of tonsillectomy ?Z90.89 - Acquired absence of other organs (ICD-10) H/O cataract removal with insertion of prosthetic lens ?Z98.49 - Cataract extraction status, unspecified eye (ICD-10) ?Z96.1 - Presence of intraocular lens (ICD-10) Status post Dupuytren's fasciectomy ?Z98.890 - Other specified postprocedural states (ICD-10) Status post nephrectomy ?Z90.5 - Acquired absence of kidney (ICD-10) Status post biventricular pacemaker ?Z95.0 - Presence of cardiac pacemaker (ICD-10) Social History What is your current living situation?: I presently have a place to live Problems where you live: no known problems Problems where you live details: n/a In the past 12 months, utilities in danger of being shut off: no In past 12 months, lack of transportation kept you from medical appts, meetings, work, or getting things needed for daily living: no In the past 12 mos, have been you worried that your food would run out before you had money to buy more?: never true In the past 12 mos, the food you bought just didn't last and you didn't have money to buy more?: never true Highest level of school completed/degree received: Doctoral degree Smoking Status: Former smoker What tobacco products do you use: pipe How often do you have a drink containing alcohol: 2-3 times a week How many standard drinks containing alcohol do you have on a typical day: 1 or 2 How often do you have six or more drinks on one occasion: Never AUDIT-C Alcohol total score: 3 Non-prescribed substance use: denies use Caffeine: Yes (coffee) How often does anyone, including family, friends and others, physically hurt you : never How often does anyone, including family, friends and others, insult or talk down to you: never How often does anyone, including family, friends and others, threaten you with h arm: never How often does anyone, including family, friends and others, scream or curse at you: never service: Yes Exam Narrative: Exam Narrative: Constitutional: Well-developed, well-nourished, no acute distress. HEENT: Normocephalic, atraumatic. Neck: Normal range of motion. Nontender. Supple. Heart: Regular. No murmurs. Normal rate. Intact distal pulses. Lungs: Clear to auscultation. No chest discomfort. No wheezes, rhonchi, or rales. Abdomen: Normal bowel sounds. Nontender. No rebound tenderness. Genitalia: Deferred. Back: No midline tenderness. Normal range of motion. Extremities: Normal range of motion. No injury. Skin: Intact. No rash. Warm. No erythema or pallor. Neurologic: No altered sensation. No weakness. Alert and oriented. Psychiatric: No suicidality. No anxiety or depression. No insomnia. Nursing notes and vitals signs are reviewed. Const: Vital Signs, click to edit/add: Vital Signs - 24 hr 07/27/24 14:28 07/27/24 14:35 07/27/24 14:45 Temperature 96.9 F L Pulse Rate 56 L 56 L Pulse Rate [Right Pulse Oximeter] 56 L Respiratory Rate 16 Blood Pressure Blood Pressure [Ri ght Upper Arm] 118/78 Pulse Oximetry 97 98 97 Oxygen Delivery Me thod Room Air 07/27/24 15:00 07/27/24 15:15 07/27/24 15:30 Temperature Pulse Rate 53 L 51 L 50 L Pulse Rate [Right Pulse Oximeter] Respiratory Rate Blood Pressure Blood Pressure [Ri ght Upper Arm] Pulse Oximetry 95 97 97 Oxygen Delivery Me thod 07/27/24 15:37 07/27/24 15:45 07/27/24 16:00 Temperature Pulse Rate 50 L 50 L 50 L Pulse Rate [Right Pulse Oximeter] Respiratory Rate Blood Pressure 117/68 Blood Pressure [Ri ght Upper Arm] Pulse Oximetry 95 97 97 Oxygen Delivery Me thod 07/27/24 16:01 Temperature Pulse Rate 50 L Pulse Rate [Right Pulse Oximeter] Respiratory Rate Blood Pressure 118/73 Blood Pressure [Ri ght Upper Arm] Pulse Oximetry 96 Oxygen Delivery Me thod Course Vital Signs Vital signs: Initial Vital Signs Temperature 96.9 F L 07/27/24 14:28 Temperature Source Temporal Artery Scan 07/27/24 14:28 Pulse Rate 56 L 07/27/24 14:28 Pulse Rhythm Regular 07/27/24 14:28 Pulse Strength 3+ Normal 07/27/24 14:28 Respiratory Rate 16 07/27/24 14:28 Blood Pressure 118/78 07/27/24 14:28 Blood Pressure Mean 91 07/27/24 14:28 Blood Pressure Position Sitting 07/27/24 14:28 Pulse Oximetry 97 07/27/24 14:28 Oxygen Delivery Method Room Air 07/27/24 14:28 Vital Signs Temperature 96.9 F L 07/27/24 14:28 Pulse Rate 56 L 07/27/24 14:28 Respiratory Rate 16 07/27/24 14:28 Blood Pressure 118/78 07/27/24 14:28 Pulse Oximetry 97 07/27/24 14:28 Oxygen Delivery Method Room Air 07/27/24 14:28 Temperature 96.9 F L 07/27/24 14:28 Pulse Rate 50 L 07/27/24 16:01 Respiratory Rate 16 07/27/24 14:28 Blood Pressure 118/73 07/27/24 16:01 Pulse Oximetry 96 07/27/24 16:01 Oxygen Delivery Method Room Air 07/27/24 14:28 Medications Administered Medications: Discontinued Medications Generic Name Dose Route Start Last Admin Trade Name Freq PRN Reason Stop Dose Admin Apixaban 10 mg 07/27/24 16:45 07/27/24 16:59 Apixaban 5 Mg Tablet PO 07/27/24 16:46 10 mg ONCE ONE Administration Medical Decision Making MDM Narrative Medical decision making narrative: This patient had an EKG initially that showed a paced rhythm at 87 beats per minute. There were no ST or T-wave changes. There is no evidence of a P-wave. As I was initially interviewing him his rhythm changed to a rate of 50 beats per minute with atrial flutter. I did connect with compressor operator adjuster on-call regarding these findings who recommended follow-up in the clinic provide that his electrolytes are okay. The patient is on metoprolol and will need to be on an anticoagulant. His lab results to returned with reassuring findings. His glucose is markedly elevated and he does not have diabetes but he is currently taking a steroid. The patient received a tablet of Eliquis and is instructed follow-up with cardiology clinic in the [facility]. Prescription for Eliquis is provided. I advised him regarding signs and symptoms that indicate a need for return and re-evaluation. He is not a candidate for cardioversion at this time as his symptoms have been present for 2 or 3 days at least and there is no well known time of when this rhythm began. Lab Data Labs: Lab Results 07/27/24 07/27/24 Range/Units 15:15 15:26 WBC 9.38 (4.50-11.00) K/uL RBC 3.57 L (4.30-5.90) m/uL Hgb 12.5 L (13.5-17.5) gm/dL Hct 38.5 (37.0-53.0) % MCV 108 H (80-100) fL MCH 35 H (26-34) pg MCHC 33 (32-36) gm/dL RDW Coeff of Oscar 17.9 H (11.5-15.5) % Plt Count 165 (140-440) K/uL Neut % (Auto) 90.9 H (42.0-72.0) % Lymph % (Auto) 5.2 L (20-44) % Atkinson % (Auto) 3.2 (0.0-11.0) % Eos % (Auto) 0.1 (0.0-7.0) % Baso % (Auto) 0.0 (0.0-3.0) % Neut # (Auto) 8.50 H (1.7-7.0) K/uL Lymph # (Auto) 0.50 L (0.90-2.90) K/uL Atkinson # (Auto) 0.30 (0.00-0.90) K/UL Eos # (Auto) 0.01 (0.00-0.50) K/uL Baso # (Auto) 0.00 (0.00-0.30) K/uL Abs Immat Gran (auto) 0.06 (0.00-0.30) K/uL Imm/Tot Granulo (auto) 0.6 % Sodium 135 (135-149) mmol/L Potassium 4.3 (3.6-5.1) mmol/L Chloride 104 (96-114) mmol/L Carbon Dioxide 22 (20-32) mmol/L Anion Gap 9 (7-15) mEq/L BUN 36 H (7-30) mg/dL Creatinine 0.9 (0.5-1.5) mg/dL Estimated Creat Clear 54.94 Estimated GFR 87 ml/min Glucose 385 H* (60-115) mg/dL Calcium 8.9 (8.4-10.6) mg/dL Magnesium 1.8 (1.5-2.6) mg/dL POC Troponin I 0.05 H (0.01-0.04) ng/ml ECG Data Attestation: I personally reviewed and interpreted this ECG as follows: Interpretation: Ventricular paced rhythm, rate 87 beats per minute. There are no specific ST or T-wave abnormalities. Repeat EKG shows a paced rhythm at 51 beats per minute with he atrial flutter. Discharge Plan Discharge Clinical Impression: Atrial flutter Patient Disposition: Home w/ Parent or Adult Condition: Stable Instructions: Atrial Flutter (DC) Additional Instructions: Take medication as prescribed and follow-up with cardiology clinic for ongoing management. Return if worsening. Prescriptions: New Eliquis DVT-PE Treat 30D Start 5 mg (74 tabs) tablets,dose pack See Rx Instructions PO .COMPLEX Qty: 74 0RF Rx Instructions: orally per package directions No Action allopurinol 300 mg tablet 150 mg PO DAILY atorvastatin 80 mg tablet 80 mg PO DAILY diltiazem HCl [Cardizem CD] 180 mg capsule,extended release 24hr 180 mg PO DAILY metoprolol tartrate 25 mg tablet 25 mg PO BID mirtazapine [Remeron] 15 mg tablet 22.5 mg feeding tube HS aspirin 81 mg capsule 81 mg PO DAILY cyclobenzaprine 10 mg tablet 10 mg PO HS sildenafil [Viagra] 100 mg tablet 100 mg PO DAILY PRN Rx Instructions: administer 30 minutes to 4 hours before activity Ofev 100 mg capsule 100 mg PO Q12H Follow Up/Referrals: Neville Bowie MD [Primary Care Provider] - Stand Alone Forms: [employer] Info Instructions
[2024-07-27] MEDS: APIXABAN 5 MG TABLET 10 MG PO (16:59)
== END 2024-07-27 17:00 | disposition home or self-care (01) ==
PROVIDERS: Emergency Provider Emergency Medicine Emergency Medical Services; PCP Family Medicine
DX: I48.92 Unspecified atrial flutter (principal)
CPT/HCPCS: 36415; 80048; 83735; 84484; 85025; 93005; 99284; A9270

== ENCOUNTER 2024-09-10 10:16 | Outpatient (CLI) | payer MEDICARE, BC, SELFPAY | END 2024-09-10 10:17 | disposition home or self-care (01) | LOC: WOUND 10:18 | PROVIDERS: PCP Family Medicine; Visit Provider Nurse Practitioner Family | DX: S51.812A Laceration without foreign body of left forearm, initial encounter (principal); Z95.0 Presence of cardiac pacemaker; Z79.01 Long term (current) use of anticoagulants | CPT/HCPCS: G0463 ==

== ENCOUNTER 2024-09-14 11:47 | Emergency (ER) | payer MEDICARE, BC, SELFPAY ==
[2024-09-14] VITALS (21 sets, daily range): BP systolic 118–134; BP diastolic 71–108; PULSE 49–58; RESP 16–20; TEMP 36.1; O2SAT 93–100; BMI 23.6
--- NOTE | 2024-09-14 13:34 | ED_ITS ---
HPI - General Adult General Date Seen: 09/14/24 Chief complaint: Chest Pain Stated complaint: pressure on chest Time Seen by Provider: 09/14/24 13:27 History of Present Illness HPI narrative: 78-year-old gentleman with a past medical history including hypertension, atrial flutter, PSVT, pulmonary fibrosis, history of second-degree heart block, hyperlipidemia, chronic kidney disease, mild cognitive dysfunction. Per is triaged house he also has a history of mitral annular calcification and moderate mitral stenosis, severe tricuspid insufficiency, pulmonary hypertension. He has a dual-chamber pacemaker. He was here in the ER about 2 months ago on 07/27. He has cardiology a male with a pacemaker. His pacemaker had indicated new onset of AFib her prompting his ER visit that day. In the ER he had intermittent episodes of atrial flutter with slow ventricular response interspersed with paced rhythm. He was started on Eliquis for stroke prophylaxis. Labs showed white count of 9.3, hemoglobin 12.5, platelet 165. Sodium 135, potassium 4.3, bicarb 22, BUN 36, creatinine 0.90, calcium 8.9. Magnesium 1.8. Troponin was abnormal at 0.05. Discussed with [facility] who recommended outpatient clinic follow-up. He had initially been on Eliquis for a few days but then decided not to take it. He had his outpatient cardiology follow-up visit with [facility] on August 31. After that visit he was restarted on Eliquis. Plans will be for hi m to be on Eliquis and then potentially have a ANNELIESE guided cardioversion in the future. He was also started on a loop diuretic. He does have some chronic shortness of breath because of his pulmonary hypertension and pulmonary fibrosis. That is really not changing lately. He has not had any recent cough. No recent chest injury. No swelling in his legs. For the past 3 or 4 or 5 days he has had some continuous discomfort in the central region of his chest. He can not really call when it 1st started but it has been there for several days. Nothing clearly makes it better or worse although he does say perhaps a little bit worse when he lays down in bed. No clear relationship to eating. No clear relationship to activity or exertion. He has been trying to ignore the symptoms, but ultimately his convinced him to come here to the ER today. If anything it may be slightly better today than it was yesterday. Related Data Home Medications ?Medication ?Instructions ?Recorded ?Confirmed allopurinol 300 mg tablet 150 mg PO DAILY 10/17/23 09/14/24 aspirin 81 mg capsule 81 mg PO DAILY 10/17/23 09/14/24 atorvastatin 80 mg tablet 80 mg PO DAILY 10/17/23 09/14/24 cyclobenzaprine 10 mg tablet 10 mg PO HS 10/17/23 09/14/24 diltiazem HCl 180 mg 180 mg PO DAILY 10/17/23 09/14/24 capsule,extended release 24 hr (Cardizem CD) metoprolol tartrate 25 mg tablet 25 mg PO BID 10/17/23 09/14/24 mirtazapine 15 mg tablet (Remeron) 22.5 mg feeding tube HS 10/17/23 09/14/24 sildenafil 100 mg tablet (Viagra) 100 mg PO DAILY PRN 10/17/23 09/07/24 nintedanib 100 mg capsule (Ofev) 100 mg PO Q12H 10/18/23 09/14/24 torsemide 10 mg tablet 100 mg PO HS 09/07/24 09/14/24 metoprolol succinate 25 mg 25 mg PO .am dose 09/14/24 09/14/24 tablet,extended release 24 hr metoprolol succinate 50 mg capsule 50 mg PO .pm dose 09/14/24 09/14/24 sprinkle, ext. release 24 hr Previous Rx's ?Medication ?Instructions ?Recorded apixaban 5 mg (74 tabs) tablets in See Rx Instructions PO .COMPLEX 07/27/24 a dose pack ([email or web address] DVT-PE Treat #74 ea 30D Start) Allergies Allergy/AdvReac Type Severity Reaction Status Date / Time bupropion AdvReac Intermediate Myalgias Verified 09/14/24 12:02 [facility] Medical History Essential hypertension ?I10 - Essential (primary) hypertension (ICD-10) History of SCC (squamous cell carcinoma) of skin ?Z85.828 - Personal history of other malignant neoplasm of skin (ICD-10) History of basal cell carcinoma (BCC) ?Z85.828 - Personal history of other malignant neoplasm of skin (ICD-10) History of melanoma ?Z85.820 - Personal history of malignant melanoma of skin (ICD-10) Mild cognitive impairment ?G31.84 - Mild cognitive impairment of uncertain or unknown etiology (ICD-10) Erectile dysfunction ?N52.9 - Male erectile dysfunction, unspecified (ICD-10) Urothelial carcinoma of bladder ?C67.9 - Malignant neoplasm of bladder, unspecified (ICD-10) Chronic kidney disease ?N18.9 - Chronic kidney disease, unspecified (ICD-10) Gout ?M10.9 - Gout, unspecified (ICD-10) Valvular heart disease ?I38 - Endocarditis, valve unspecified (ICD-10) Idiopathic pulmonary fibrosis ?J84.112 - Idiopathic pulmonary fibrosis (ICD-10) History of second degree heart block ?Z86.79 - Personal history of other diseases of the circulatory system (ICD- 10) Tinnitus ?H93.19 - Tinnitus, unspecified ear (ICD-10) Paroxysmal SVT (supraventricular tachycardia) ?I47.10 - Supraventricular tachycardia, unspecified (ICD-10) Hyperlipidemia ?E78.5 - Hyperlipidemia, unspecified (ICD-10) Surgical History History of hernia repair ?Z98.890 - Other specified postprocedural states (ICD-10) ?Z87.19 - Personal history of other diseases of the digestive system (ICD-10) History of tonsillectomy ?Z90.89 - Acquired absence of other organs (ICD-10) H/O cataract removal with insertion of prosthetic lens ?Z98.49 - Cataract extraction status, unspecified eye (ICD-10) ?Z96.1 - Presence of intraocular lens (ICD-10) Status post Dupuytren's fasciectomy ?Z98.890 - Other specified postprocedural states (ICD-10) Status post nephrectomy ?Z90.5 - Acquired absence of kidney (ICD-10) Status post biventricular pacemaker ?Z95.0 - Presence of cardiac pacemaker (ICD-10) Social History What is your current living situation?: I presently have a place to live Problems where you live: no known problems Problems where you live details: n/a In the past 12 months, utilities in danger of being shut off: no In the past 12 mos, have been you worried that your food would run out before you had money to buy more?: never true In the past 12 mos, the food you bought just didn't last and you didn't have money to buy more?: never true Highest level of school completed/degree received: Doctoral degree Smoking Status: Former smoker What tobacco products do you use: pipe How often do you have a drink containing alcohol: 2-3 times a week How many standard drinks containing alcohol do you have on a typical day: 1 or 2 How often do you have six or more drinks on one occasion: Never AUDIT-C Alcohol total score: 3 Non-prescribed substance use: denies use Caffeine: Yes (coffee) How often does anyone, including family, friends and others, physically hurt you : never How often does anyone, including family, friends and others, insult or talk down to you: never How often does anyone, including family, friends and others, threaten you with harm: never How often does anyone, including family, friends and others, scream or curse at you: never service: Yes Exam Narrative: Exam Narrative: Constitutional: Appears well-developed and well-nourished. Alert. Conversant. Non toxic. HENT: Head: Atraumatic. Nose: Nose normal. Mouth/Throat: Oral mucosa is clear and moist. no trismus. Pharynx normal. Tonsils symmetric. No tonsillar enlargement, erythema, or exudate. Eyes: Conjunctivae normal. EOM normal. Pupils equal, round, and reactive to light. No scleral icterus. Neck: Normal range of motion. Neck supple. No tracheal deviation present. No JVD Cardiovascular: Bradycardic, regular rhythm. Appears to have a paced rhythm monitor. No gallop. No friction rub. No murmur heard. Symmetric radial and PT artery pulses Pulmonary/Chest: Effort normal. No stridor. No respiratory distress. bibasilar rales. No tenderness. Abdominal: Soft. Bowel sounds normal. No distension. No mass. No tenderness. No rebound. No guarding. Musculoskeletal: RUE: Normal range of motion. No tenderness. No deformity LUE: Normal range of motion. No tenderness. No deformity RLE: Normal range of motion. No edema. No tenderness. No deformity LLE: Normal range of motion. No edema. No tenderness. No deformity Neurological: Alert and oriented to person, place, and time. Normal strength. CN II-VII intact. No sensory deficit. GCS eye subscore is 4. GCS verbal subscore is 5. GCS motor subscore is 6. Normal coordination Skin: Skin is warm and dry. No rash noted. No pallor. Normal capillary refill. Psychiatric: Normal mood. Normal affect. Const: Vital Signs, click to edit/add: Vital Signs - 24 hr 09/14/24 11:53 09/14/24 13:27 09/14/24 13:28 Temperature 96.9 F L Pulse Rate 55 L 53 L Pulse Rate [Left P ulse Oximeter] 55 L Respiratory Rate 16 20 Blood Pressure 127/87 Blood Pressure [Ri ght Upper Arm] 118/74 Pulse Oximetry 99 98 [facility] 09/14/24 13:30 09/14/24 13:31 09/14/24 14:00 Temperature Pulse Rate 51 L 49 L 54 L Pulse Rate [Left P ulse Oximeter] Respiratory Rate Blood Pressure 121/78 Blood Pressure [Ri ght Upper Arm] Pulse Oximetry 99 99 98 Oxygen Delivery Me od 09/14/24 14:01 09/14/24 14:02 09/14/24 14:30 Temperature Pulse Rate 53 L 56 L 52 L Pulse Rate [Left P ulse Oximeter] Respiratory Rate Blood Pressure 126/79 Blood Pressure [Ri ght Upper Arm] Pulse Oximetry 97 97 [facility] 09/14/24 14:31 09/14/24 15:00 09/14/24 15:02 Temperature Pulse Rate 51 L 49 L 50 L Pulse Rate [Left P ulse Oximeter] Respiratory Rate Blood Pressure 122/76 119/94 H Blood Pressure [Ri ght Upper Arm] Pulse Oximetry 97 93 95 Oxygen Delivery Me thod 09/14/24 15:30 09/14/24 15:31 09/14/24 15:32 Temperature Pulse Rate 52 L 52 L 54 L Pulse Rate [Left P ulse Oximeter] Respiratory Rate Blood Pressure 123/76 Blood Pressure [Ri ght Upper Arm] Pulse Oximetry 98 100 98 Oxygen Delivery Me thod 09/14/24 16:00 09/14/24 16:01 09/14/24 16:30 Temperature Pulse Rate 58 L 56 L 50 L Pulse Rate [Left P ulse Oximeter] Respiratory Rate Blood Pressure 123/78 Blood Pressure [Ri ght Upper Arm] Pulse Oximetry 95 93 99 Oxygen Delivery Me thod 09/14/24 16:31 09/14/24 17:00 09/14/24 17:02 Temperature Pulse Rate 50 L 53 L 53 L Pulse Rate [Left P ulse Oximeter] Respiratory Rate Blood Pressure 132/108 H 134/71 Blood Pressure [Ri ght Upper Arm] Pulse Oximetry 95 98 100 Oxygen Delivery Me thod Course Vital Signs Vital signs: Initial Vital Signs Temperature 96.9 F L 09/14/24 11:53 Temperature Source Temporal Artery Scan 09/14/24 11:53 Pulse Rate 55 L 09/14/24 11:53 Pulse Rhythm Irregular 09/14/24 11:53 Respiratory Rate 16 09/14/24 11:53 Blood Pressure 118/74 09/14/24 11:53 Blood Pressure Mean 88 09/14/24 11:53 Blood Pressure Position Sitting 09/14/24 11:53 Pulse Oximetry 99 09/14/24 11:53 Oxygen Delivery Method Room Air 09/14/24 11:53 Vital Signs Temperature 96.9 F L 09/14/24 11:53 Pulse Rate 55 L 09/14/24 11:53 Respiratory Rate 16 09/14/24 11:53 Blood Pressure 118/74 09/14/24 11:53 Pulse Oximetry 99 09/14/24 11:53 Oxygen Delivery Method Room Air 09/14/24 11:53 Temperature 96.9 F L 09/14/24 11:53 Pulse Rate 53 L 09/14/24 17:02 Respiratory Rate 20 09/14/24 13:27 Blood Pressure 134/71 09/14/24 17:02 Pulse Oximetry 100 09/14/24 17:02 Oxygen Delivery Method Room Air 09/14/24 11:53 Medical Decision Making MDM Narrative Medical decision making narrative: This is a 78-year-old gentleman with a complex past medical history including pulmonary fibrosis, atrial fibrillation pacemaker, severe valvular disease, coronary artery calcifications but no previous stents who follows with [facility]. He has chronic shortness of breath which is thought to be due to his pulmonary fibrosis but has new substernal chest pressure which has been present continuously for the past 4 days or so at home. He presents the ER today. Differential is broad. He does have a paced rhythm with bradycardia here in the ER. He has a known history of a fib and is on Eliquis for stroke prophylaxis. Plans are for him to have a anneliese guided cardioversion at some point coming up. We considered possible ACS, however 4 days of continuous pressure would be somewhat atypical for that. workup with EKG and troponin is negative. Given time since onset of symptoms, I do not think the patient needs to be admitted for further sets of enzymes. EKG shows no evidence for pericarditis. Clinical presentation not suggestive of myocarditis. Chest x-ray shows no evidence for pneumonia, pneumothorax, pulmonary edema, pleural effusion, rib fracture, cardiomegaly. It does show coarse interstitial infiltrates which are read by Radiology to be similar to prior and thought to be due to pulmonary fibrosis. By my review of his x-rays I think there is some increased opacities, especially in the lower lung verduzco in the retrocardiac area which I think could correspond to evolving pulmonary edema superimposed on his pre-existing pulmonary fibrosis. However there is a positional component with his chest discomfort in that it is worse when he lays down, suggesting possible CHF. He has no new peripheral edema in his ankles. BNP level is 3370. Mediastinum is normal on the x-ray. The patient has no ripping or tearing pain through to the back and has symmetric pulses on exam, no other acute neuro findings so I doubt aortic dissection. Risk of radiation and contrast exposure would outweigh the benefit of CT angiogram. We considered PE for this patient. Main risk factor would be that he has known metastatic kidney cancer. He is not currently on chemo. However would somewhat low risk since he is currently anticoagulated on Eliquis. He has no pleuritic component to his chest pain, tachycardia, hypoxia. No wheezing or bronchospasm to suggest COPD/asthma. COVID negative. Influenza negative. No signs of chest wall cellulitis, shingles, injury. Discussed by phone with the on-call graphic illustrator for [facility], Dr. Javier. Review the patient's presenting symptoms with 4 days of continuous chest discomfort. Workup so far reveals bradycardia with paced rhythm, and undetectable troponin. BNP is up from baseline. By my read chest x-ray does show I think some mild pulmonary edema. He is not hypoxic or markedly hypertension. Cardiology agrees with me that it is reasonable to try outpatient management and have the patient increase his dose of torsemide from his current dose at 10 mg per day and double it up to 20 mg per day for the next week. Cardiology does not have any upcoming appointments to recheck the [facility] [place]. Therefore will have the patient follow-up with his primary care provider at the [facility] here in [place] within 1 week. With reasonable clinical confidence, I think the patient is safe for outpatient follow up. Discussed return precautions. Questions answered. Patient and his verbalize comfort with the plan. Lab Data Labs: Lab Results 09/14/24 Range/Units 14:18 WBC 9.30 (4.50-11.00) K/uL RBC 3.98 L (4.30-5.90) m/uL Hgb 13.0 L (13.5-17.5) gm/dL Hct 41.4 (37.0-53.0) % MCV 104 H (80-100) fL MCH 33 (26-34) pg MCHC 31 L (32-36) gm/dL RDW Coeff of Oscar 15.7 H (11.5-15.5) % Plt Count 325 (140-440) K/uL Neut % (Auto) 75.0 H (42.0-72.0) % Lymph % (Auto) 14.0 L (20-44) % [place] % (Auto) 8.7 (0.0-11.0) % Eos % (Auto) 1.6 (0.0-7.0) % Baso % (Auto) 0.5 (0.0-3.0) % Neut # (Auto) 7.00 (1.7-7.0) K/uL Lymph # (Auto) 1.30 (0.90-2.90) K/uL [place] # (Auto) 0.80 (0.00-0.90) K/UL Eos # (Auto) 0.15 (0.00-0.50) K/uL Baso # (Auto) 0.05 (0.00-0.30) K/uL Abs Immat Gran (auto) 0.02 (0.00-0.30) K/uL Imm/Tot Granulo (auto) 0.2 % INR 1.56 H (0.91-1.10) Sodium 141 (135-149) mmol/L Potassium 3.7 (3.6-5.1) mmol/L Chloride 98 (96-114) mmol/L Carbon Dioxide 32 (20-32) mmol/L Anion Gap 11 (7-15) mEq/L BUN 25 (7-30) mg/dL Creatinine 1.1 (0.5-1.5) mg/dL Estimated Creat Clear 53.55 Estimated GFR 69 ml/min Glucose 145 H (60-115) mg/dL Lactate 1.7 (0.5-1.9) mmol/L Calcium 9.7 (8.4-10.6) mg/dL Troponin I < 0.01 L (0.01-0.04) ng/mL NT-Pro-B Natriuret Pep 3370 pg/mL SARS-CoV-2 (PCR) Negative SARS-CoV-2 (Negative) Influenza Type A (PCR) Negative PCR FLU A (Negative) Influenza Type B (PCR) Negative PCR FLU B (Negative) RSV (PCR) Negative PCR RSV (Negative) Imaging Data Chest x-ray: Attestation: I have reviewed the pertinent imaging results. Radiologist's impression: IMPRESSIONS: 1. Mild, stable cardiomegaly is noted. 2. Small lung volumes with coarse interstitial infiltrates are present bilaterally without change and likely due to pulmonary fibrosis. ECG Data Attestation: I personally reviewed and interpreted this ECG as follows: Interpretation: Ventricular paced rhythm Rate: 51 NV: na QRS axis: c/w ventricular Pacer ST segment/T wave: No ST segment elevation according to Sgarbossa criteria QTc: 499 Discharge Plan Discharge Clinical Impression: Chest pressure, CHF (congestive heart failure) Instructions: Heart Failure (ED), Chest Pain (DC) Additional Instructions: As we discussed, we want you to increase your dose of torsemide for the next 7 days. You are currently taking 10 mg per day. increase the dose of torsemide up to 20 mg per day. This will help move fluid out of your body in out of her lungs and should help her chest pressure and your breathing feel better. Please follow-up with your doctor at the [facility] within 5-7 days to recheck your blood work (metabolic profile, potassium level, kidney function, BNP level) and to recheck your vital signs and symptoms. If you have worsening pressure or more trouble breathing, please return to the ER or see your graphic illustrator at [facility] right away. Prescriptions: No Action torsemide 10 mg tablet 100 mg PO HS allopurinol 300 mg tablet 150 mg PO DAILY atorvastatin 80 mg tablet 80 mg PO DAILY diltiazem HCl [Cardizem CD] 180 mg capsule,extended release 24hr 180 mg PO DAILY metoprolol tartrate 25 mg tablet 25 mg PO BID mirtazapine [Remeron] 15 mg tablet 22.5 mg feeding tube HS aspirin 81 mg capsule 81 mg PO DAILY cyclobenzaprine 10 mg tablet 10 mg PO HS sildenafil [Viagra] 100 mg tablet 100 mg PO DAILY PRN Rx Instructions: administer 30 minutes to 4 hours before activity Ofev 100 mg capsule 100 mg PO Q12H metoprolol succinate 50 mg capsule,sprinkle,ER 24hr 50 mg PO .pm dose metoprolol succinate 25 mg tablet extended release 24 hr 25 mg PO .am dose Eliquis DVT-PE Treat 30D Start 5 mg (74 tabs) tablets,dose pack See Rx Instructions PO .COMPLEX Qty: 74 0RF Rx Instructions: orally per package directions Follow Up/Referrals: Neville Bowie MD [Primary Care Provider] - Stand Alone Forms: [facility] Info Instructions
--- NOTE | 2024-09-14 13:58 | CRLHL7_ITS ---
For Patients: As a result of the Century Cures Act, medical imaging exams and procedure reports are released immediately into your electronic medical record. You may view this report before your referring provider. If you have questions, please contact your health care provider. INDICATION: Chest pressure TECHNIQUE: Chest radiograph 2 views COMPARISON: 10/17/2023 FINDINGS: Mediastinum: The mediastinum is normal in appearance. Mild, stable cardiomegaly is noted. There is a left cardiac pacer present with leads in the right atrium and right ventricle. Lung: Small lung volumes with coarse interstitial infiltrates are present bilaterally without change and likely due to pulmonary fibrosis. No sign of pleural effusion seen. No pneumothorax is identified. Bone and Soft tissue: Unremarkable for age. IMPRESSIONS: 1. Mild, stable cardiomegaly is noted. 2. Small lung volumes with coarse interstitial infiltrates are present bilaterally without change and likely due to pulmonary fibrosis. Dictated by Valentín Hernández MD @ 09/14/2024 2:39:29 PM Dictated by: Valentín Hernández MD @ 09/14/2024 14:39:31 (Electronically Signed)
[2024-09-14 14:28] LABS: Lactate* 1.7 mmol/L (0.5-1.9)
[2024-09-14 14:30] LABS: Basophils Absolute Auto 0.05 K/uL (0.00-0.30); Basophils Percent Auto 0.5 % (0.0-3.0); Eosinophils Absolute Auto 0.15 K/uL (0.00-0.50); Eosinophils Percent Auto 1.6 % (0.0-7.0); Hematocrit 41.4 % (37.0-53.0); Immature Granulocytes Abs Auto 0.02 K/uL (0.00-0.30); Immature Granulocytes Pct Auto 0.2 %; Mean Corpuscular HGB Conc 31 gm/dL (32-36); Mean Corpuscular Hemoglobin 33 pg (26-34); Mean Corpuscular Volume 104 fL (80-100); Monocytes Percent Auto 8.7 % (0.0-11.0); Platelet Count* 325 K/uL (140-440); RDW Coefficient of Variation % 15.7 % (11.5-15.5); Red Blood Count 3.98 m/uL (4.30-5.90)
[2024-09-14 14:33] LABS: Slide Review Reflex No
[2024-09-14 14:47] LABS: Chloride* 98 mmol/L (96-114); Potassium* 3.7 mmol/L (3.6-5.1); Sodium* 141 mmol/L (135-149)
[2024-09-14 14:50] LABS: Anion Gap 11 mEq/L (7-15); Blood Urea Nitrogen* 25 mg/dL (7-30); Carbon Dioxide* 32 mmol/L (20-32); Creatinine* 1.1 mg/dL (0.5-1.5); Est. Creatinine Clearance* 53.55; Estimated Glomerular Filt Rate 69 ml/min; Glucose* 145 mg/dL (60-115)
[2024-09-14 14:51] LABS: Calcium* 9.7 mg/dL (8.4-10.6)
[2024-09-14 14:53] LABS: INR 1.56 (0.91-1.10); Prothrombin Time 19.8 Seconds
[2024-09-14 15:02] LABS: NT Pro B Type NatriureticPept* 3370 pg/mL
[2024-09-14 15:19] LABS: PCR FLU A Negative PCR FLU A (Negative); PCR FLU B Negative PCR FLU B (Negative); PCR RSV Negative PCR RSV (Negative); SARS PCR* Negative SARS-CoV-2 (Negative)
[2024-09-14 15:34] LABS: Troponin I* < 0.01 ng/mL (0.01-0.04)
== END 2024-09-14 17:22 | disposition home or self-care (01) ==
PROVIDERS: Emergency Provider Emergency Medicine; PCP Family Medicine
DX: I50.9 Heart failure, unspecified (principal)
CPT/HCPCS: 36415; 71046; 80048; 83605; 83880; 84484; 85025; 85610; 87631; 93005; 99283; 99284; 99285

== ENCOUNTER 2024-09-14 17:30 | Emergency (ER) | payer MEDICARE, BC, SELFPAY ==
[2024-09-14 17:34] VITALS: BP 131/65; PULSE 53; RESP 18; TEMP 36.6; O2SAT 97; BMI 25.0
--- NOTE | 2024-09-14 17:41 | CRLHL7_ITS ---
For Patients: As a result of the Century Cures Act, medical imaging exams and procedure reports are released immediately into your electronic medical record. You may view this report before your referring provider. If you have questions, please contact your health care provider. INDICATION: Fall. head injury today, fall, anticoagulated TECHNIQUE: CT Head without i.v. contrast. Coronal and sagittal reformats were obtained. COMPARISON: None FINDINGS: CSF space: Unremarkable for age. Brain: No evidence of mass, acute infarction or hemorrhage is seen. No mass-effect or midline shift is seen. Mild diffuse cortical atrophy is noted. The brain parenchyma is otherwise normal in appearance with preservation of the yo-white matter junction. Calvarium: The visualized paranasal sinuses are well aerated. The mastoid air cells are clear. The visualized orbits are grossly unremarkable. The calvarium is unremarkable in appearance with no fractures identified. IMPRESSION: 1. No evidence of acute infarction, intracranial hemorrhage, or mass-effect seen. Please note that all CT scans at this facility use dose modulation, iterative reconstruction, and/or weight-based dosing when appropriate to reduce radiation dose to as low as reasonably achievable. Dictated by: Valentín Hernández MD @ 09/14/2024 18:10:50 (Electronically Signed)
--- NOTE | 2024-09-14 17:42 | ED_ITS ---
HPI - Fall General Time Seen by Provider: 17:43 Date Seen: 09/14/24 Chief Complaint: Fall/Minor Trauma Stated Complaint: Fall, hit head Time Seen by Provider: 09/14/24 17:42 Source: patient, RN notes reviewed and old records reviewed Mode of arrival: ambulatory Limitations: no limitations History of Present Illness HPI Narrative: 78-year-old male with history of heart failure, currently anticoagulated for atrial fibrillation. Was seen in the emergency department today for weakness and chest pain, negative in the emergency department valuation discharged. On his way to his car he tripped over the curb and fell hitting his head. No lightheadedness or dizziness, no palpitations or chest pain preceding this. No neck pain, back pain, extremity pain. Related Data Home Medications ?Medication ?Instructions ?Recorded ?Confirmed allopurinol 300 mg tablet 150 mg PO DAILY 10/17/23 09/14/24 aspirin 81 mg capsule 81 mg PO DAILY 10/17/23 09/14/24 atorvastatin 80 mg tablet 80 mg PO DAILY 10/17/23 09/14/24 cyclobenzaprine 10 mg tablet 10 mg PO HS 10/17/23 09/14/24 diltiazem HCl 180 mg 180 mg PO DAILY 10/17/23 09/14/24 capsule,extended release 24 hr (Cardizem CD) metoprolol tartrate 25 mg tablet 25 mg PO BID 10/17/23 09/14/24 mirtazapine 15 mg tablet (Remeron) 22.5 mg feeding tube HS 10/17/23 09/14/24 sildenafil 100 mg tablet (Viagra) 100 mg PO DAILY PRN 10/17/23 09/07/24 nintedanib 100 mg capsule (Ofev) 100 mg PO Q12H 10/18/23 09/14/24 torsemide 10 mg tablet 100 mg PO HS 09/07/24 09/14/24 metoprolol succinate 25 mg 25 mg PO .am dose 09/14/24 09/14/24 tablet,extended release 24 hr metoprolol succinate 50 mg capsule 50 mg PO .pm dose 09/14/24 09/14/24 sprinkle, ext. release 24 hr Previous Rx's ?Medication ?Instructions ?Recorded apixaban 5 mg (74 tabs) tablets in See Rx Instructions PO .COMPLEX 07/27/24 a dose pack (Eliquis DVT-PE Treat #74 ea 30D Start) Allergies Allergy/AdvReac Type Severity Reaction Status Date / Time bupropion AdvReac Intermediate Myalgias Verified 09/14/24 12:02 [facility] Medical History Essential hypertension ?I10 - Essential (primary) hypertension (ICD-10) History of SCC (squamous cell carcinoma) of skin ?Z85.828 - Personal history of other malignant neoplasm of skin (ICD-10) History of basal cell carcinoma (BCC) ?Z85.828 - Personal history of other malignant neoplasm of skin (ICD-10) History of melanoma ?Z85.820 - Personal history of malignant melanoma of skin (ICD-10) Mild cognitive impairment ?G31.84 - Mild cognitive impairment of uncertain or unknown etiology (ICD-10) Erectile dysfunction ?N52.9 - Male erectile dysfunction, unspecified (ICD-10) Urothelial carcinoma of bladder ?C67.9 - Malignant neoplasm of bladder, unspecified (ICD-10) Chronic kidney disease ?N18.9 - Chronic kidney disease, unspecified (ICD-10) Gout ?M10.9 - Gout, unspecified (ICD-10) Valvular heart disease ?I38 - Endocarditis, valve unspecified (ICD-10) Idiopathic pulmonary fibrosis ?J84.112 - Idiopathic pulmonary fibrosis (ICD-10) History of second degree heart block ?Z86.79 - Personal history of other diseases of the circulatory system (ICD- 10) Tinnitus ?H93.19 - Tinnitus, unspecified ear (ICD-10) Paroxysmal SVT (supraventricular tachycardia) ?I47.10 - Supraventricular tachycardia, unspecified (ICD-10) Hyperlipidemia ?E78.5 - Hyperlipidemia, unspecified (ICD-10) Surgical History History of hernia repair ?Z98.890 - Other specified postprocedural states (ICD-10) ?Z87.19 - Personal history of other diseases of the digestive system (ICD-10) History of tonsillectomy ?Z90.89 - Acquired absence of other organs (ICD-10) H/O cataract removal with insertion of prosthetic lens ?Z98.49 - Cataract extraction status, unspecified eye (ICD-10) ?Z96.1 - Presence of intraocular lens (ICD-10) Status post Dupuytren's fasciectomy ?Z98.890 - Other specified postprocedural states (ICD-10) Status post nephrectomy ?Z90.5 - Acquired absence of kidney (ICD-10) Status post biventricular pacemaker ?Z95.0 - Presence of cardiac pacemaker (ICD-10) Social History What is your current living situation?: I presently have a place to live Problems where you live: no known problems Problems where you live details: n/a In the past 12 months, utilities in danger of being shut off: no In the past 12 mos, have been you worried that your food would run out before you had money to buy more?: never true In the past 12 mos, the food you bought just didn't last and you didn't have money to buy more?: never true Highest level of school completed/degree received: Doctoral degree Smoking Status: Former smoker What tobacco products do you use: pipe Do you use any of these nicotine containing products: None How often do you have a drink containing alcohol: never How many standard drinks containing alcohol do you have on a typical day: 1 or 2 How often do you have six or more drinks on one occasion: Never AUDIT-C Alcohol total score: 0 Non-prescribed substance use: denies use Caffeine: Yes (coffee) How often does anyone, including family, friends and others, physically hurt you : never How often does anyone, including family, friends and others, insult or talk down to you: never How often does anyone, including family, friends and others, threaten you with harm: never How often does anyone, including family, friends and others, scream or curse at you: never service: Yes Exam Narrative: Exam Narrative: General: Well-developed and well-nourished, no acute distress Head: 2 cm curvilinear laceration over the right eyebrow, 3 mm partial- thickness laceration just under the medial right eyebrow. Irregular stellate partial-thickness laceration of the nasal bridge. Small area of bruising the right eyebrow. Two 1 mm puncture is a over the left medial eyebrow. Eyes: Pupils are equal reactive, extraocular motions intact, conjunctiva clear ENT: External nose and ears are normal, posterior pharynx without erythema or exudate Neck: No midline cervical tenderness, full spontaneous range of motion the neck, trachea midline, no adenopathy Heart: Regular rate and rhythm no murmurs or thrills Lungs: Clear to auscultation bilaterally without wheezes or crackles Abdomen: Soft, nontender, nondistended with active bowel sounds Musculoskeletal: No tenderness, deformity, or edema. Skin tear of the thenar eminence of the left hand measuring about 1 cm, superficial abrasion on the dorsum of the left hand in the 1st web space measuring 6 mm. No tenderness or deformity of the hands or wrists, off full flexion extension at the MCP, DIP, PIP, and wrists. Neurologic: Awake, alert, and oriented x3, no gross focal neurologic deficits, cranial nerves intact as tested Psych: Mood and affect are appropriate Skin: No rashes Const: Vital Signs, click to edit/add: Vital Signs - 24 hr 09/14/24 17:34 Temperature 97.8 F Pulse Rate [Pulse Oximeter] 53 L Respiratory Rate 18 Blood Pressure [Ri ght Upper Arm] 131/65 Pulse Oximetry 97 Oxygen Delivery Me thod Room Air Course Course ED Course: Head CT ordered from triage, independently interpreted by me does not demonstrate acute intracranial hemorrhage or other abnormality. No bony abnormalities. Patient with a trip and fall after being discharged emergency department. As a couple of facial lacerations as well as laceration of the nasal bridge, also skin tear superficial laceration left hand. No wrist pain, arm pain, neck pain, or back pain. Lacerations repaired with Dermabond. Laceration repair- multiple lacerations the forehead, total length 3 cm. Risks and benefits discussed with patient and verbal consent obtained, wounds were cleansed with Shur-Clens, explored no foreign bodies found. Wound closed with Dermabond, patient tolerated this well. Reevaluation(s) Time of Reevaluation #1: 18:13 Reevaluation #1: Reviewed radiology interpretation head CT which is negative for acute findings. Patient is stable for discharge. Vital Signs Vital signs: Initial Vital Signs Temperature 97.8 F 09/14/24 17:34 Temperature Source Temporal Artery Scan 09/14/24 17:34 Pulse Rate 53 L 09/14/24 17:34 Pulse Rhythm Regular 09/14/24 17:34 Respiratory Rate 18 09/14/24 17:34 Blood Pressure 131/65 09/14/24 17:34 Blood Pressure Mean 87 09/14/24 17:34 Blood Pressure Position Sitting 09/14/24 17:34 Pulse Oximetry 97 09/14/24 17:34 Oxygen Delivery Method Room Air 09/14/24 17:34 Vital Signs Temperature 97.8 F 09/14/24 17:34 Pulse Rate 53 L 09/14/24 17:34 Respiratory Rate 18 09/14/24 17:34 Blood Pressure 131/65 09/14/24 17:34 Pulse Oximetry 97 09/14/24 17:34 Oxygen Delivery Method Room Air 09/14/24 17:34 Temperature 97.8 F 09/14/24 17:34 Pulse Rate 53 L 09/14/24 17:34 Respiratory Rate 18 09/14/24 17:34 Blood Pressure 131/65 09/14/24 17:34 Pulse Oximetry 97 09/14/24 17:34 Oxygen Delivery Method Room Air 09/14/24 17:34 Discharge Plan Discharge Clinical Impression: Laceration of eyebrow and forehead, Skin tear of left hand without complication, Anticoagulated, ISTAP type 1 skin tear of left hand Patient Disposition: Home w/ Parent or Adult Condition: Stable Instructions: Head Injury (DC), Skin Adhesive Care (ED) Activity Level: No Restrictions Discharge Diet: Regular Prescriptions: No Action torsemide 10 mg tablet 100 mg PO HS allopurinol 300 mg tablet 150 mg PO DAILY atorvastatin 80 mg tablet 80 mg PO DAILY diltiazem HCl [Cardizem CD] 180 mg capsule,extended release 24hr 180 mg PO DAILY metoprolol tartrate 25 mg tablet 25 mg PO BID mirtazapine [Remeron] 15 mg tablet 22.5 mg feeding tube HS aspirin 81 mg capsule 81 mg PO DAILY cyclobenzaprine 10 mg tablet 10 mg PO HS sildenafil [Viagra] 100 mg tablet 100 mg PO DAILY PRN Rx Instructions: administer 30 minutes to 4 hours before activity Ofev 100 mg capsule 100 mg PO Q12H metoprolol succinate 50 mg capsule,sprinkle,ER 24hr 50 mg PO .pm dose metoprolol succinate 25 mg tablet extended release 24 hr 25 mg PO .am dose Eliquis DVT-PE Treat 30D Start 5 mg (74 tabs) tablets,dose pack See Rx Instructions PO .COMPLEX Qty: 74 0RF Rx Instructions: orally per package directions Follow Up/Referrals: Neville Bowie MD [Primary Care Provider] - Stand Alone Forms: [employer] Info Instructions
== END 2024-09-14 18:54 | disposition home or self-care (01) ==
PROVIDERS: Emergency Provider Family Medicine; PCP Family Medicine
DX: S01.112A Laceration without foreign body of left eyelid and periocular area, initial encounter (principal); S61.412A Laceration without foreign body of left hand, initial encounter; W01.10XA Fall on same level from slipping, tripping and stumbling with subsequent striking against unspecified object, initial encounter
CPT/HCPCS: 12011; 70450; 99282; 99284

== ENCOUNTER 2024-09-17 10:36 | Observation (INO) | payer MEDICARE, BC, SELFPAY ==
[2024-09-17] VITALS (37 sets, daily range): BP systolic 108–153; BP diastolic 70–98; PULSE 59–115; RESP 22–34; TEMP 36.6–38.1; O2SAT 90–98; BMI 24.3; BMI 22.9
--- NOTE | 2024-09-17 11:41 | ED_ITS ---
HPI - General Adult General Chief complaint: Unspecified Complaint, Adult Stated complaint: Low O2 Time Seen by Provider: 09/17/24 11:30 History of Present Illness HPI narrative: Patient presents to the emergency department complaining of low o2 levels. Patient was sitting at his table while checking his vital signs and found his o2 to be 88-74% on room air. Patient had a recent visit to the ER and his diuretic was increased thinking it would help. Patient states he becomes short of breath with walking and has low stamina. 78-year-old man presenting to the emergency department with concern of shortness of breath and congestion in chest and throat. Was at the table this morning checking vitals and noted oxygen levels to be low. Underlying history of heart failure with valvular heart disease and underlying history of idiopathic pulmonary fibrosis. He has not been experiencing chest pain. Is particularly exertionally short of breath and weak as his notes. Long history of biventricular pacemaker with a history of paroxysmal supraventricular tachycardia and 2 months ago seen with a flutter and was initiated on Eliquis. Seen in this department 3 days ago with exacerbation of heart failure and same day for a fall upon exiting emergency department following a head injury. He seemed a little more confused last night but more clear, conversant this morning. Medically short of breath when he tries to lie down. Frankly not been able to sleep due to the degree of congestion seems to be accumulating. Following visit 3 days ago was increased from 10 to 20 mg of torsemide daily in consultation with Cardiology. He has not been able to take his pills over the last day or so due to degree of congestion that he just ends up gagging instead of swallowing. Has also recently sustained some skin tears and was seen in the wound clinic. These are not noted to be infected. Have not noted a fever. Spouse discusses on the side that hospice from [place] is coming to talk with them in the morning. Mr. Lindsey is not yet aware of this consultation. Underlying metastatic kidney cancer status post nephrectomy. Congestion and difficulty swallowing has really accelerated over the last 24 hours. Related Data Home Medications ?Medication ?Instructions ?Recorded ?Confirmed allopurinol 300 mg tablet 150 mg PO DAILY 10/17/23 09/17/24 aspirin 81 mg capsule 81 mg PO DAILY 10/17/23 09/17/24 atorvastatin 80 mg tablet 80 mg PO DAILY 10/17/23 09/17/24 cyclobenzaprine 10 mg tablet 10 mg PO HS 10/17/23 09/17/24 diltiazem HCl 180 mg 180 mg PO DAILY 10/17/23 09/17/24 capsule,extended release 24 hr (Cardizem CD) metoprolol tartrate 25 mg tablet 25 mg PO BID 10/17/23 09/14/24 mirtazapine 15 mg tablet (Remeron) 22.5 mg feeding tube HS 10/17/23 09/17/24 nintedanib 100 mg capsule (Ofev) 100 mg PO Q12H 10/18/23 09/17/24 torsemide 10 mg tablet 100 mg PO HS 09/07/24 09/17/24 metoprolol succinate 25 mg 25 mg PO .am dose 09/14/24 09/17/24 tablet,extended release 24 hr metoprolol succinate 50 mg capsule 50 mg PO .pm dose 09/14/24 09/17/24 sprinkle, ext. release 24 hr Previous Rx's ?Medication ?Instructions ?Recorded apixaban 5 mg (74 tabs) tablets in See Rx Instructions PO .COMPLEX 07/27/24 a dose pack (Moblyng DVT-PE Treat #74 ea 30D Start) Allergies Allergy/AdvReac Type Severity Reaction Status Date / Time bupropion AdvReac Intermediate Myalgias Verified 09/17/24 10:45 Review of Systems Status of ROS: Reports: 6 or more systems reviewed and unremarkable except as noted in History and below [facility] Medical History Essential hypertension ?I10 - Essential (primary) hypertension (ICD-10) History of SCC (squamous cell carcinoma) of skin ?Z85.828 - Personal history of other malignant neoplasm of skin (ICD-10) History of basal cell carcinoma (BCC) ?Z85.828 - Personal history of other malignant neoplasm of skin (ICD-10) History of melanoma ?Z85.820 - Personal history of malignant melanoma of skin (ICD-10) Mild cognitive impairment ?G31.84 - Mild cognitive impairment of uncertain or unknown etiology (ICD-10) Erectile dysfunction ?N52.9 - Male erectile dysfunction, unspecified (ICD-10) Urothelial carcinoma of bladder ?C67.9 - Malignant neoplasm of bladder, unspecified (ICD-10) Chronic kidney disease ?N18.9 - Chronic kidney disease, unspecified (ICD-10) Gout ?M10.9 - Gout, unspecified (ICD-10) Valvular heart disease ?I38 - Endocarditis, valve unspecified (ICD-10) Idiopathic pulmonary fibrosis ?J84.112 - Idiopathic pulmonary fibrosis (ICD-10) History of second degree heart block ?Z86.79 - Personal history of other diseases of the circulatory system (ICD- 10) Tinnitus ?H93.19 - Tinnitus, unspecified ear (ICD-10) Paroxysmal SVT (supraventricular tachycardia) ?I47.10 - Supraventricular tachycardia, unspecified (ICD-10) Hyperlipidemia ?E78.5 - Hyperlipidemia, unspecified (ICD-10) Surgical History History of hernia repair ?Z98.890 - Other specified postprocedural states (ICD-10) ?Z87.19 - Personal history of other diseases of the digestive system (ICD-10) History of tonsillectomy ?Z90.89 - Acquired absence of other organs (ICD-10) H/O cataract removal with insertion of prosthetic lens ?Z98.49 - Cataract extraction status, unspecified eye (ICD-10) ?Z96.1 - Presence of intraocular lens (ICD-10) Status post Dupuytren's fasciectomy ?Z98.890 - Other specified postprocedural states (ICD-10) Status post nephrectomy ?Z90.5 - Acquired absence of kidney (ICD-10) Status post biventricular pacemaker ?Z95.0 - Presence of cardiac pacemaker (ICD-10) Social History What is your current living situation?: I presently have a place to live Problems where you live: no known problems Problems where you live details: n/a In the past 12 months, utilities in danger of being shut off: no In the past 12 mos, have been you worried that your food would run out before you had money to buy more?: never true In the past 12 mos, the food you bought just didn't last and you didn't have money to buy more?: never true Highest level of school completed/degree received: Doctoral degree Smoking Status: Former smoker What tobacco products do you use: pipe Do you use any of these nicotine containing products: None How often do you have a drink containing alcohol: never How many standard drinks containing alcohol do you have on a typical day: 1 or 2 How often do you have six or more drinks on one occasion: Never AUDIT-C Alcohol total score: 0 Non-prescribed substance use: denies use Caffeine: Yes (coffee) How often does anyone, including family, friends and others, physically hurt you : never How often does anyone, including family, friends and others, insult or talk down to you: never How often does anyone, including family, friends and others, threaten you with harm: never How often does anyone, including family, friends and others, scream or curse at you: never service: Yes Exam Narrative: Exam Narrative: Pleasant. Persistent congestive sound Ng voice and clearing of his throat. Hard to understand what is being said due to congestion sometimes. Is mildly labored and mildly tachypneic. No supraclavicular crepitus. Oropharynx is WNL. I do not appreciate significant lower extremity edema. There is broad bandage over left forearm and some without surrounding inflammatory changes (removed later shows lesions to be well healing. Covered open area with white petroleum jelly and nonstick gauze) Cranial nerves 2-12 appear to be intact. Pupils are equal and briskly reactive. There is a healing abrasion laceration in the mid brow and bridge of the nose -- all covered with what appears to be Dermabond. Lungs with diffuse crepitus right lower lung more than left lower lung. Trace wheeze here and there as well. Seems generally fatigued. Moving all extremities without difficulty. Abdomen is soft appears to be nontender. Const: Vital Signs, click to edit/add: Vital Signs - 24 hr 09/17/24 10:41 09/17/24 10:53 09/17/24 11:00 Temperature 98 F Pulse Rate 101 H 62 Pulse Rate [Right Pulse Oximeter] 103 H Respiratory Rate 22 Blood Pressure Blood Pressure [Ri ght Upper Arm] 123/77 Pulse Oximetry 94 97 98 Oxygen Delivery Me thod Room Air 09/17/24 11:15 09/17/24 11:30 09/17/24 11:45 Temperature Pulse Rate 63 59 L 69 Pulse Rate [Right Pulse Oximeter] Respiratory Rate Blood Pressure Blood Pressure [Ri ght Upper Arm] Pulse Oximetry 96 95 95 Oxygen Delivery Me thod 09/17/24 12:00 09/17/24 12:15 09/17/24 12:30 Temperature Pulse Rate 67 60 68 Pulse Rate [Right Pulse Oximeter] Respiratory Rate Blood Pressure Blood Pressure [Ri ght Upper Arm] Pulse Oximetry 97 95 97 Oxygen Delivery Me thod 09/17/24 12:45 09/17/24 13:10 09/17/24 13:15 Temperature Pulse Rate 66 86 61 Pulse Rate [Right Pulse Oximeter] Respiratory Rate Blood Pressure Blood Pressure [Ri ght Upper Arm] Pulse Oximetry 95 93 96 Oxygen Delivery Me thod 09/17/24 13:30 09/17/24 13:45 09/17/24 14:00 Temperature Pulse Rate 68 68 68 Pulse Rate [Right Pulse Oximeter] Respiratory Rate Blood Pressure Blood Pressure [Ri ght Upper Arm] Pulse Oximetry 95 92 90 Oxygen Delivery Me thod 09/17/24 14:15 09/17/24 14:46 09/17/24 14:47 Temperature Pulse Rate 68 81 76 Pulse Rate [Right Pulse Oximeter] Respiratory Rate Blood Pressure 153/83 H Blood Pressure [Ri ght Upper Arm] Pulse Oximetry 96 95 96 Oxygen Delivery Me thod 09/17/24 14:48 09/17/24 15:09 09/17/24 15:26 Temperature Pulse Rate 75 81 72 Pulse Rate [Right Pulse Oximeter] Respiratory Rate Blood Pressure Blood Pressure [Ri ght Upper Arm] Pulse Oximetry 96 95 93 Oxygen Delivery Me thod 09/17/24 15:30 09/17/24 15:45 09/17/24 16:45 Temperature Pulse Rate 69 75 109 H Pulse Rate [Right Pulse Oximeter] Respiratory Rate Blood Pressure Blood Pressure [Ri ght Upper Arm] Pulse Oximetry 96 91 91 Oxygen Delivery Me thod 09/17/24 16:48 09/17/24 16:49 09/17/24 17:00 Temperature Pulse Rate 86 80 82 Pulse Rate [Right Pulse Oximeter] Respiratory Rate Blood Pressure 108/98 H Blood Pressure [Ri ght Upper Arm] Pulse Oximetry 96 93 95 Oxygen Delivery Me thod 09/17/24 17:02 09/17/24 17:03 09/17/24 17:24 Temperature Pulse Rate 82 115 H Pulse Rate [Right Pulse Oximeter] Respiratory Rate Blood Pressure 127/86 Blood Pressure [Ri ght Upper Arm] Pulse Oximetry 92 Oxygen Delivery Me thod 09/17/24 17:30 Temperature Pulse Rate 74 Pulse Rate [Right Pulse Oximeter] Respiratory Rate Blood Pressure Blood Pressure [Ri ght Upper Arm] Pulse Oximetry 94 Oxygen Delivery Me thod Documenting provider has reviewed patient's vital signs: yes Course Vital Signs Vital signs: Initial Vital Signs Temperature 98 F 09/17/24 10:41 Temperature Source Temporal Artery Scan 09/17/24 10:41 Pulse Rate 103 H 09/17/24 10:41 Pulse Rhythm Regular 09/17/24 10:41 Pulse Strength 3+ Normal 09/17/24 10:41 Respiratory Rate 22 09/17/24 10:41 Blood Pressure 123/77 09/17/24 10:41 Blood Pressure Mean 92 09/17/24 10:41 Blood Pressure Position Sitting 09/17/24 10:41 Pulse Oximetry 94 09/17/24 10:41 Oxygen Delivery Method Room Air 09/17/24 10:41 Vital Signs Temperature 98 F 09/17/24 10:41 Pulse Rate 103 H 09/17/24 10:41 Respiratory Rate 22 09/17/24 10:41 Blood Pressure 123/77 09/17/24 10:41 Pulse Oximetry 94 09/17/24 10:41 Oxygen Delivery Method Room Air 09/17/24 10:41 Temperature 98 F 09/17/24 10:41 Pulse Rate 74 09/17/24 17:30 Respiratory Rate 22 09/17/24 10:41 Blood Pressure 127/86 09/17/24 17:02 Pulse Oximetry 94 09/17/24 17:30 Oxygen Delivery Method Room Air 09/17/24 10:41 Medications Administered Medications: Discontinued Medications Generic Name Dose Route Start Last Admin Trade Name Freq PRN Reason Stop Dose Admin Albuterol 2.5 mg 09/17/24 13:51 09/17/24 14:12 Albuterol Sulfate 2.5 Mg/3 Ml Vial.Neb NEB 09/17/24 13:52 2.5 mg ONCE ONE Administration Furosemide 40 mg 09/17/24 13:44 09/17/24 14:12 Furosemide 10 Mg/Ml Inj IVP 09/17/24 13:45 40 mg ONCE ONE Administration Scopolamine 1 patch 09/17/24 13:45 11/14/24 14:10 Scopolamine 1 Mg/3 Day Patch TRANSDERMA 09/17/24 13:46 1 patch Q72H ONE Administration Medical Decision Making MDM Narrative Medical decision making narrative: I would presume persistent exacerbation of heart failure with fluid accumulating in his lungs at this point. Complicated by the fact is not able to take necessary diuretics. Will need to check renal function of potential if activity of these medications. Family concern also of possible urinary tract infection. Can certainly collect urine in this regard. I believe the thought that this might be related to some confusion that seemed more present yesterday evening. Is anticoagulated with Eliquis though pulmonary embolus remains in differential as does pneumonia. In addition to diuretic, scopolamine patch? EKG here today reviewed by me looks to show what appears to be atrial fibrillation though looks a little bit like a flutter. Contrary to prior EKGs, I do not see pacer spikes. History of a flutter on recent visits. Does also have a history of paroxysmal supraventricular tachycardia and a biventricular pacer. In May 2024 proBNP was 364. Three days ago it was 3370 and today at 3890. No daily weights for comparison. Did discuss with Cardiology at [place]. No further recommendations at this time but would not cardiovert. Did seem to improve with albuterol nebulization here as well. Maintaining oxygenation. Chest x-ray reviewed by me does not seem to show significant failure. No pneumonia. Radiology over-read as below TECHNIQUE: 2 views. FINDINGS: Medical Devices: In-situ left-sided dual lead cardiac conduction device. Lung Volumes: Adequate inspiration. No significant atelectasis. Lungs: Chronic bilateral diffuse symmetrical reticular opacities consistent with nonspecific interstitial lung disease without pronounced apical basal gradient are unchanged going back to 10/17/2023. No superimposed pulmonary opacity to indicate pneumonia, for example. No findings suspicious for kelsey congestive heart failure. Pleura and Pleural spaces: No significant pleural effusion. No pneumothorax. Mediastinum: Stable cardiomediastinal silhouette. Cardiomegaly is again noted. Chronic unchanged rightward displacement of the trachea. Bony Thorax and Soft Tissues: No significant incidental findings. IMPRESSION: 1. Stable radiographic examination of the chest. No acute cardiopulmonary process. 2. Chronic interstitial lung disease as above. Additional incidental findings as discussed in the body of the report. Does swallowing difficulty represent a more significant dysphagia than just congestion? Recent cerebrovascular event? Is anticoagulated. Have requested brain imaging with MRI. Discussed for admission with hospitalist pending this result for PT/OT and management of secretions. Of course considering that he has a pacer will not be able to do an MRI as ho ped. Will be doing stroke study with CT CTA of the head and neck. While pending imaging while on monitor we did notice that began to have rapidly paced rhythm sustained. Not more symptomatic but in the 1-teens. Discussed this also with Cardiology and suspect this is simply sensing the atrial rate. Head CT reviewed by me looks to be absent of any acute bleed. Pending vascular over-read. Discussed with hospitalist for admission and possible evaluation by speech/swallow study. Other interventions as necessary. At a minimum assisting with management of secretions. Coming into evening again he appears to be more confused again and increasingly weak. Spouse, family concerned about managing at home overnight as was rather difficult last night with gagging/choking. He did manage to drink some Ensure here in the emergency department. Radiology over-read prelims as below INDICATION: Dysphagia. TECHNIQUE: Multiplanar CT angiogram of the head was performed after the administration of 95 mL of Isovue 370 intravenous contrast. COMPARISON: None. PRELIMINARY FINDINGS: The intracranial ICA segments remain patent. There are mild atherosclerotic calcifications of the cavernous and supraclinoid ICA segments bilaterally. The MCAs remain normal in course and caliber and are patent bilaterally. The bilateral ACAs remain patent. Codominant vertebral arteries. The vertebrobasilar system appears unremarkable. The visualized cerebellar arteries are unremarkable. The technical report writer are normal in course and caliber and remain patent. No cerebral aneurysms or large vessel occlusions. PRELIMINARY IMPRESSION: No large vessel occlusion or intracranial aneurysm identified. INDICATION: Dysphagia. TECHNIQUE: Multiplanar CT angiogram of the neck was performed after the administration of 95 mL of Isovue 370 intravenous contrast. COMPARISON: None. PRELIMINARY FINDINGS: Bovine arch, normal anatomic variant. The great vessels remain patent. The common carotid arteries remain patent. The origins of the common carotid arteries remain patent. There are moderate atherosclerotic calcifications at the carotid bulbs and bifurcations bilaterally, with moderate stenosis of the left proximal cervical ICA (approximately 1.7 mm of residual lumen) and mild stenosis of the right proximal cervical ICA segment (approximately 2.0 mm of residual lumen). Codominant vertebral arteries. The cervical vertebral arteries remain patent. Mild stenosis of the origins of the vertebral arteries bilaterally due to calcified atherosclerotic plaque. The visualized thyroid is unremarkable. The visualized lung verduzco are clear. Biapical pleural-parenchymal scarring and right greater than left mild traction bronchiectasis. PRELIMINARY IMPRESSION: 1. 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 2. Mild stenosis of the right proximal cervical ICA. 3. Mild stenosis of the origins of the vertebral arteries bilaterally. Medical Records Medical records reviewed: Yes I reviewed the patient's medical records Lab Data Lab results reviewed: Yes I reviewed the patient's lab results Labs: Lab Results 09/17/24 09/17/24 09/17/24 Range/Units 12:14 12:36 12:53 WBC 10.83 (4.50-11.00) K/uL RBC 3.72 L (4.30-5.90) m/uL Hgb 12.1 L (13.5-17.5) gm/dL Hct 37.7 (37.0-53.0) % MCV 101 H (80-100) fL MCH 33 (26-34) pg MCHC 32 (32-36) gm/dL RDW Coeff of Oscar 15.4 (11.5-15.5) % Plt Count 299 (140-440) K/uL Neut % (Auto) 75.3 H (42.0-72.0) % Lymph % (Auto) 10.2 L (20-44) % [place] % (Auto) 13.2 H (0.0-11.0) % Eos % (Auto) 0.6 (0.0-7.0) % Baso % (Auto) 0.5 (0.0-3.0) % Neut # (Auto) 8.20 H (1.7-7.0) K/uL Lymph # (Auto) 1.10 (0.90-2.90) K/uL [place] # (Auto) 1.40 H (0.00-0.90) K/UL Eos # (Auto) 0.06 (0.00-0.50) K/uL Baso # (Auto) 0.05 (0.00-0.30) K/uL Abs Immat Gran (auto) 0.02 (0.00-0.30) K/uL Imm/Tot Granulo (auto) 0.2 % VBG pH 7.473 H (7.32-7.43) VBG pCO2 43 (40-50) mmHG VBG pO2 < 30.1 (25-47) mmHG VBG HCO3 31 H (21-28) mmol/L Sodium 136 (135-149) mmol/L Potassium 3.4 L (3.6-5.1) mmol/L Chloride 95 L (96-114) mmol/L Carbon Dioxide 30 (20-32) mmol/L Anion Gap 11 (7-15) mEq/L BUN 34 H (7-30) mg/dL Creatinine 1.0 (0.5-1.5) mg/dL Estimated Creat Clear 56.92 Estimated GFR 77 ml/min Glucose 123 H (60-115) mg/dL Lactate 1.6 (0.5-1.9) mmol/L Calcium 9.1 (8.4-10.6) mg/dL Magnesium 1.7 (1.5-2.6) mg/dL Total Bilirubin 0.8 (0.1-1.5) mg/dL Direct Bilirubin 0.3 (0.0-0.5) mg/dL AST 30 (12-35) U/L ALT 28 (4-50) U/L Alkaline Phosphatase 128 (40-150) U/L Troponin I 0.02 (0.01-0.04) ng/mL C-Reactive Protein 7.1 H (0.5-1.0) mg/dL NT-Pro-B Natriuret Pep 3890 pg/mL Total Protein 7.4 (6.0-8.3) g/dL Albumin 4.2 (3.3-5.0) g/dL Urine Color (Yellow) Urine Appearance (Clear) Urine pH (5.0-8.5) Ur Specific [place] (1.000-1.030) Urine Protein (Negative) Urine Glucose (UA) (Negative) Urine Ketones (Negative) Urine Blood (Negative) Urine Nitrite (Negative) Urine Bilirubin (Negative) Urine Urobilinogen (0.2-1.0) Ur Leukocyte Esterase (Negative) Urine RBC (0-2) Urine WBC (0-5) Ur Squamous Epith Cells (None-Few) Urine Bacteria (None) SARS-CoV-2 (PCR) Negative SARS-CoV-2 (Negative) Influenza Type A (PCR) Negative PCR FLU A (Negative) Influenza Type B (PCR) Negative PCR FLU B (Negative) RSV (PCR) Negative PCR RSV (Negative) POC Troponin I 0.03 (0.01-0.04) ng/ml 09/17/24 Range/Units 14:45 WBC (4.50-11.00) K/uL RBC (4.30-5.90) m/uL Hgb (13.5-17.5) gm/dL Hct (37.0-53.0) % MCV (80-100) fL MCH (26-34) pg MCHC (32-36) gm/dL RDW Coeff of Oscar (11.5-15.5) % Plt Count (140-440) K/uL Neut % (Auto) (42.0-72.0) % Lymph % (Auto) (20-44) % [place] % (Auto) (0.0-11.0) % Eos % (Auto) (0.0-7.0) % Baso % (Auto) (0.0-3.0) % Neut # (Auto) (1.7-7.0) K/uL Lymph # (Auto) (0.90-2.90) K/uL [place] # (Auto) (0.00-0.90) K/UL Eos # (Auto) (0.00-0.50) K/uL Baso # (Auto) (0.00-0.30) K/uL Abs Immat Gran (auto) (0.00-0.30) K/uL Imm/Tot Granulo (auto) % VBG pH (7.32-7.43) VBG pCO2 (40-50) mmHG VBG pO2 (25-47) mmHG VBG HCO3 (21-28) mmol/L Sodium (135-149) mmol/L Potassium (3.6-5.1) mmol/L Chloride (96-114) mmol/L Carbon Dioxide (20-32) mmol/L Anion Gap (7-15) mEq/L BUN (7-30) mg/dL Creatinine (0.5-1.5) mg/dL Estimated Creat Clear Estimated GFR ml/min Glucose (60-115) mg/dL Lactate (0.5-1.9) mmol/L Calcium (8.4-10.6) mg/dL Magnesium (1.5-2.6) mg/dL Total Bilirubin (0.1-1.5) mg/dL Direct Bilirubin (0.0-0.5) mg/dL AST (12-35) U/L ALT (4-50) U/L Alkaline Phosphatase (40-150) U/L Troponin I (0.01-0.04) ng/mL C-Reactive Protein (0.5-1.0) mg/dL NT-Pro-B Natriuret Pep pg/mL Total Protein (6.0-8.3) g/dL Albumin (3.3-5.0) g/dL Urine Color Yellow (Yellow) Urine Appearance Clear (Clear) Urine pH 6.0 (5.0-8.5) Ur Specific [place] 1.015 (1.000-1.030) Urine Protein Trace A (Negative) Urine Glucose (UA) Negative (Negative) Urine Ketones Negative (Negative) Urine Blood Negative (Negative) Urine Nitrite Negative (Negative) Urine Bilirubin Negative (Negative) Urine Urobilinogen 0.2 (0.2-1.0) Ur Leukocyte Esterase Negative (Negative) Urine RBC 0-2 (0-2) Urine WBC 2-5 (0-5) Ur Squamous Epith Cells None (None-Few) Urine Bacteria None (None) SARS-CoV-2 (PCR) (Negative) Influenza Type A (PCR) (Negative) Influenza Type B (PCR) (Negative) RSV (PCR) (Negative) POC Troponin I (0.01-0.04) ng/ml ECG Data Attestation: I personally reviewed and interpreted this ECG as follows: (Atrial fibrillation though has some appearance of atrial flutter. Rate of 61. No pacer spikes.) Discharge Plan Discharge Clinical Impression: Dysphagia, CHF (congestive heart failure), Atrial fibrillation, Interstitial lung disease Patient Disposition: Admitted As Observation Condition: Stable
--- NOTE | 2024-09-17 12:20 | CRLHL7_ITS ---
For Patients: As a result of the Century Cures Act, medical imaging exams and procedure reports are released immediately into your electronic medical record. You may view this report before your referring provider. If you have questions, please contact your health care provider. INDICATION: Chest congestion. COMPARISON: 09/14/2024 and 10/17/2023. TECHNIQUE: 2 views. FINDINGS: Medical Devices: In-situ left-sided dual lead cardiac conduction device. Lung Volumes: Adequate inspiration. No significant atelectasis. Lungs: Chronic bilateral diffuse symmetrical reticular opacities consistent with nonspecific interstitial lung disease without pronounced apical basal gradient are unchanged going back to 10/17/2023. No superimposed pulmonary opacity to indicate pneumonia, for example. No findings suspicious for kelsey congestive heart failure. Pleura and Pleural spaces: No significant pleural effusion. No pneumothorax. Mediastinum: Stable cardiomediastinal silhouette. Cardiomegaly is again noted. Chronic unchanged rightward displacement of the trachea. Bony Thorax and Soft Tissues: No significant incidental findings. IMPRESSION: 1. Stable radiographic examination of the chest. No acute cardiopulmonary process. 2. Chronic interstitial lung disease as above. Additional incidental findings as discussed in the body of the report. Dictated by Rashid Hoffman MD @ 09/17/2024 1:27:53 PM (Electronically Signed)
[2024-09-17 13:01] LABS: HCO3 VBG 31 mmol/L (21-28); PCO2 VBG 43 mmHG (40-50); PO2 VBG < 30.1 mmHG (25-47); pH VBG 7.473 (7.32-7.43)
[2024-09-17 13:03] LABS: Lactate* 1.6 mmol/L (0.5-1.9)
[2024-09-17 13:06] LABS: Basophils Absolute Auto 0.05 K/uL (0.00-0.30); Basophils Percent Auto 0.5 % (0.0-3.0); Eosinophils Absolute Auto 0.06 K/uL (0.00-0.50); Eosinophils Percent Auto 0.6 % (0.0-7.0); Hematocrit 37.7 % (37.0-53.0); Hemoglobin* 12.1 gm/dL (13.5-17.5); Immature Granulocytes Abs Auto 0.02 K/uL (0.00-0.30); Immature Granulocytes Pct Auto 0.2 %; Lymphocytes Percent Auto 10.2 % (20-44); Mean Corpuscular HGB Conc 32 gm/dL (32-36); Mean Corpuscular Hemoglobin 33 pg (26-34); Mean Corpuscular Volume 101 fL (80-100); Monocytes Percent Auto 13.2 % (0.0-11.0); Neutrophils Percent Auto 75.3 % (42.0-72.0); Platelet Count* 299 K/uL (140-440); RDW Coefficient of Variation % 15.4 % (11.5-15.5); Red Blood Count 3.72 m/uL (4.30-5.90); White Blood Count* 10.83 K/uL (4.50-11.00)
[2024-09-17 13:09] LABS: Troponin, Point-of-Care* 0.03 ng/ml (0.01-0.04)
[2024-09-17 13:14] LABS: Slide Review Reflex No
[2024-09-17 13:24] LABS: PCR FLU A Negative PCR FLU A (Negative); PCR FLU B Negative PCR FLU B (Negative); PCR RSV Negative PCR RSV (Negative); SARS PCR* Negative SARS-CoV-2 (Negative)
[2024-09-17 13:31] LABS: Albumin* 4.2 g/dL (3.3-5.0); Chloride* 95 mmol/L (96-114); Potassium* 3.4 mmol/L (3.6-5.1); Sodium* 136 mmol/L (135-149)
[2024-09-17 13:33] LABS: Aspartate Amino Transferase* 30 U/L (12-35); Bilirubin Direct* 0.3 mg/dL (0.0-0.5); Bilirubin Total* 0.8 mg/dL (0.1-1.5); Total Protein* 7.4 g/dL (6.0-8.3)
[2024-09-17 13:34] LABS: Alanine Aminotransferase* 28 U/L (4-50); Alkaline Phosphatase* 128 U/L (40-150); Est. Creatinine Clearance* 56.92; Estimated Glomerular Filt Rate 77 ml/min; Magnesium* 1.7 mg/dL (1.5-2.6)
[2024-09-17 13:35] LABS: Anion Gap 11 mEq/L (7-15); Blood Urea Nitrogen* 34 mg/dL (7-30); Calcium* 9.1 mg/dL (8.4-10.6); Carbon Dioxide* 30 mmol/L (20-32); Glucose* 123 mg/dL (60-115)
[2024-09-17 13:38] LABS: C Reactive Protein* 7.1 mg/dL (0.5-1.0)
[2024-09-17 13:46] LABS: Troponin I* 0.02 ng/mL (0.01-0.04)
[2024-09-17 13:54] LABS: NT Pro B Type NatriureticPept* 3890 pg/mL
[2024-09-17] MEDS: SCOPOLAMINE 1 MG/3 DAY PATCH 1 PATCH TRANSDERMA (14:10)
[2024-09-17] MEDS: FUROSEMIDE 10 MG/ML inj 40 MG IVP (14:12)
[2024-09-17] MEDS: ALBUTEROL SULFATE 2.5 MG/3 ML VIAL.NEB NEB (14:12)
[2024-09-17 14:54] LABS: Appearance Urine Clear (Clear); Bilirubin Urine Negative (Negative); Blood Urine Negative (Negative); Color Urine Yellow (Yellow); Glucose Urine Negative (Negative); Ketones Urine Negative (Negative); Leukocyte Esterase Urine Negative (Negative); Nitrite Urine Negative (Negative); Protein Urine Trace (Negative); Specific Gravity Urine 1.015 (1.000-1.030); Urobilinogen Urine 0.2 (0.2-1.0)
[2024-09-17 15:17] LABS: RBC Urine 0-2 (0-2)
--- NOTE | 2024-09-17 15:55 | CRLHL7_ITS ---
For Patients: As a result of the Century Cures Act, medical imaging exams and procedure reports are released immediately into your electronic medical record. You may view this report before your referring provider. If you have questions, please contact your health care provider. CLINICAL HISTORY: Dysphagia. TECHNIQUE: Standard helical CT image acquisition through the head following the administration of intravenous contrast was performed. 3D and MIP reconstructions were performed at a separate workstation and permanently archived. COMPARISON: None available. FINDINGS: No intracranial proximal large vessel occlusion or flow-limiting luminal stenosis. No evidence of cerebral aneurysm. No findings to suggest an arterial-venous shunting lesion. IMPRESSION: No intracranial proximal large vessel occlusion, flow-limiting luminal stenosis, or cerebral aneurysm. Please note that all CT scans at this facility use dose modulation, iterative reconstruction, and/or weight-based dosing when appropriate to reduce radiation dose to as low as reasonably achievable. Dictated by Jorge To MD @ 09/17/2024 11:17:27 PM (Electronically Signed)
--- NOTE | 2024-09-17 15:55 | CRLHL7_ITS ---
For Patients: As a result of the Century Cures Act, medical imaging exams and procedure reports are released immediately into your electronic medical record. You may view this report before your referring provider. If you have questions, please contact your health care provider. CLINICAL HISTORY: Dysphagia. TECHNIQUE: Standard helical CT image acquisition through the neck was performed after intravenous contrast bolus enhancement. 3D and MIP reconstructions were performed at a separate workstation and permanently archived. COMPARISON: None available. FINDINGS: The origins of the great vessels from the aortic arch are patent. The common carotid arteries are patent. Moderate (60-65%) and mild (<50%) atherosclerotic stenoses of the proximal left and right ICAs, respectively, by NASCET criteria. The more distal cervical segments of the ICAs are patent. Moderate and mild stenoses at the origins of the left and right vertebral arteries, respectively. The more distal cervical segments of the vertebral arteries are patent. Fibrotic appearing changes within the right greater than left upper lungs. IMPRESSION: 1. Moderate (60-65%) atherosclerotic stenosis of the proximal left ICA by NASCET criteria. 2. Mild (<50%) atherosclerotic stenosis of the proximal right ICA by NASCET criteria. 3. Moderate and mild stenoses at the origins of the left and right vertebral arteries, respectively. Please note that all CT scans at this facility use dose modulation, iterative reconstruction, and/or weight-based dosing when appropriate to reduce radiation dose to as low as reasonably achievable. Dictated by Jorge To MD @ 09/17/2024 11:11:48 PM (Electronically Signed)
--- NOTE | 2024-09-17 15:55 | CRLHL7_ITS ---
For Patients: As a result of the Century Cures Act, medical imaging exams and procedure reports are released immediately into your electronic medical record. You may view this report before your referring provider. If you have questions, please contact your health care provider. TECHNIQUE: Multiplanar CT examination of the head was performed without the use of intravenous contrast. INDICATION: Dysphagia. COMPARISON: CT head 09/14/2024. FINDINGS: No loss of yo-white differentiation to suggest recent territorial infarct. No intracranial hemorrhage, abnormal extra-axial fluid collection, hydrocephalus or midline shift. The ventricles and cerebral sulci are prominent in caliber, compatible with moderate generalized parenchymal volume loss. There is patchy ill-defined hypoattenuation of the periventricular white matter diffusely, consistent with chronic microvascular ischemic changes. The basal cisterns are patent. The paranasal sinuses and mastoid air cells remain clear. The orbits and calvarium are unremarkable. The cerebellar tonsils are normal position. IMPRESSION: 1. No acute intracranial findings. 2. Moderate generalized parenchymal volume loss with chronic microvascular ischemic changes. Stable examination. Please note that all CT scans at this facility use dose modulation, iterative reconstruction, and/or weight-based dosing when appropriate to reduce radiation dose to as low as reasonably achievable. Dictated by Sly Araiza MD @ 09/17/2024 5:06:39 PM (Electronically Signed)
--- NOTE | 2024-09-17 18:39 | P.IMHP_ITS ---
Hospitalist- H&P: HAFSA History of Present Illness Date Seen: 09/17/24 Chief complaint: Low O2 Narrative: Griffin Lindsey JR is a 78 year old male past medical history significant for atrial fibrillation on chronic anticoagulation, CHF, idiopathic pulmonary fibrosis, valvular heart disease (tricuspid/mitral), heart block with pacemaker, bladder cancer, cognitive impairment is admitted to the medical floor from the ED with increasing weakness, cognitive impairment, dysphagia, general decline. He is admitted for comfort cares. Patient is seen with son and at bedside. They provide the history as patient is currently quite restless, confused, attempting to crawl out of bed. Patient has been in the ED approximately 7 hours, less confused when he 1st arrived to the ED. His son tells me that he was in the ED on 09/14/2024 with suspected exacerbation of his heart failure. His torsemide was increased from 10 mg to 20 mg following consultation with Cardiology. Unfortunately, he has not been able to take those pills as he has developed dysphagia over the last several days. His son describes quite a bit of congestion in his upper airway and difficulty swallowing foods, liquids, even his own saliva. While in the ER he was drinking Ensure however was choking and coughing on this. He has not been able to swallow his daily pills as usual. Son also reports he was quite confused yesterday, worse than usual, but this seemed to have improved this morning and upon arrival to the ED. Currently, this has worsened again in the late afternoon/early evening. Patient received a neb as well as IV Lasix in the ED which is reported to have helped with some of the congestion. Patient's tells me that they have arranged for a hospice consult tomorrow morning at 10:00 a.m. with [facility]. The family is open about their concern he is declining. In the ED, a head CT was obtained for further evaluation of a potential stroke given his new dysphagia. They were unable to do an MRI as he has a pacemaker. We also discussed the possibility of a stricture requiring fur ther invasive evaluation. We also discussed speech therapy and swallow evaluations including invasive video exams. Patient's and son both tell me they do not want patient to be transferred for higher levels of evaluation nor are the interested in any invasive scopes or video swallows. Both family members would like to begin comfort cares and go forward with hospice evaluation tomorrow. We will discontinue home medications as he is unable to swallow these. They understand there is an ongoing risk for aspiration which could lead to pneumonia or even sepsis regardless. He will be admitted to the floor for comfort cares. DNR/DNI. Primary care is [facility]. Specialty cares [facility]. Review of Systems Narrative: REVIEW OF SYSTEMS: Complete review of systems performed and negative unless otherwise stated in HPI or below. [facility] Medical History (Updated 09/17/24 @ 19:18 by Terese Zayas PA-C) Essential hypertension ?I10 - Essential (primary) hypertension (ICD-10) Idiopathic pulmonary fibrosis ?J84.112 - Idiopathic pulmonary fibrosis (ICD-10) Altered mental status ?R41.82 - Altered mental status, unspecified (ICD-10) Skin tear History of SCC (squamous cell carcinoma) of skin ?Z85.828 - Personal history of other malignant neoplasm of skin (ICD-10) History of basal cell carcinoma (BCC) ?Z85.828 - Personal history of other malignant neoplasm of skin (ICD-10) History of melanoma ?Z85.820 - Personal history of malignant melanoma of skin (ICD-10) Mild cognitive impairment ?G31.84 - Mild cognitive impairment of uncertain or unknown etiology (ICD-10) Erectile dysfunction ?N52.9 - Male erectile dysfunction, unspecified (ICD-10) Urothelial carcinoma of bladder ?C67.9 - Malignant neoplasm of bladder, unspecified (ICD-10) Chronic kidney disease ?N18.9 - Chronic kidney disease, unspecified (ICD-10) Gout ?M10.9 - Gout, unspecified (ICD-10) Valvular heart disease ?I38 - Endocarditis, valve unspecified (ICD-10) History of second degree heart block ?Z86.79 - Personal history of other diseases of the circulatory system (ICD- 10) Tinnitus ?H93.19 - Tinnitus, unspecified ear (ICD-10) Paroxysmal SVT (supraventricular tachycardia) ?I47.10 - Supraventricular tachycardia, unspecified (ICD-10) Hyperlipidemia ?E78.5 - Hyperlipidemia, unspecified (ICD-10) Surgical History History of hernia repair ?Z98.890 - Other specified postprocedural states (ICD-10) ?Z87.19 - Personal history of other diseases of the digestive system (ICD-10) History of tonsillectomy ?Z90.89 - Acquired absence of other organs (ICD-10) H/O cataract removal with insertion of prosthetic lens ?Z98.49 - Cataract extraction status, unspecified eye (ICD-10) ?Z96.1 - Presence of intraocular lens (ICD-10) Status post Dupuytren's fasciectomy ?Z98.890 - Other specified postprocedural states (ICD-10) Status post nephrectomy ?Z90.5 - Acquired absence of kidney (ICD-10) Status post biventricular pacemaker ?Z95.0 - Presence of cardiac pacemaker (ICD-10) Social History What is your current living situation?: I presently have a place to live Problems where you live: no known problems Problems where you live details: n/a In the past 12 months, utilities in danger of being shut off: no In the past 12 mos, have been you worried that your food would run out before you had money to buy more?: never true In the past 12 mos, the food you bought just didn't last and you didn't have money to buy more?: never true Highest level of school completed/degree received: Doctoral degree Smoking Status: Former smoker What tobacco products do you use: pipe Do you use any of these nicotine containing products: None How often do you have a drink containing alcohol: never How many standard drinks containing alcohol do you have on a typical day: 1 or 2 How often do you have six or more drinks on one occasion: Never AUDIT-C Alcohol total score: 0 Non-prescribed substance use: denies use Caffeine: Yes (coffee) How often does anyone, including family, friends and others, physically hurt you : never How often does anyone, including family, friends and others, insult or talk down to you: never How often does anyone, including family, friends and others, threaten you with harm: never How often does anyone, including family, friends and others, scream or curse at you: never service: Yes Meds Home Medications and Allergies Home Medications ?Medication ?Instructions ?Recorded ?Confirmed ?Type allopurinol 300 mg tablet 150 mg PO DAILY 10/17/23 09/17/24 History aspirin 81 mg capsule 81 mg PO DAILY 10/17/23 09/17/24 History atorvastatin 80 mg tablet 80 mg PO DAILY 10/17/23 09/17/24 History cyclobenzaprine 10 mg tablet 10 mg PO HS 10/17/23 09/17/24 History diltiazem HCl 180 mg 180 mg PO DAILY 10/17/23 09/17/24 History capsule,extended release 24 hr (Cardizem CD) metoprolol tartrate 25 mg tablet 25 mg PO BID 10/17/23 09/14/24 History mirtazapine 15 mg tablet (Remeron) 22.5 mg feeding tube HS 10/17/23 09/17/24 History nintedanib 100 mg capsule (Ofev) 100 mg PO Q12H 10/18/23 09/17/24 History torsemide 10 mg tablet 100 mg PO HS 09/07/24 09/17/24 History metoprolol succinate 25 mg 25 mg PO .am dose 09/14/24 09/17/24 History tablet,extended release 24 hr metoprolol succinate 50 mg capsule 50 mg PO .pm dose 09/14/24 09/17/24 History sprinkle, ext. release 24 hr Allergies Allergy/AdvReac Type Severity Reaction Status Date / Time bupropion AdvReac Intermediate Myalgias Verified 09/17/24 10:45 Exam Narrative: Exam Narrative: PHYSICAL EXAM General: Restless, attempting to crawl out of bed HEENT: Superficial abrasions noted forehead and nose from recent fall, oral mucosa moist Cardiovascular: RRR, paced. No pitting edema Pulmonary: Moving air equally throughout, fine crackles. Upper airway noise noted. No dyspnea on room air Neurological: Alert, restless, makes eye contact and answers hello to his name Extremities: No gross joint deformity or swelling. AROMI. Neurovascularly intact Skin: Warm, dry. Const: Vital Signs, click to edit/add: Vital Signs - 24 hr 09/17/24 10:41 09/17/24 10:53 09/17/24 11:00 Temperature 98 F Pulse Rate 101 H 62 Pulse Rate [Right Pulse Oximeter] 103 H Respiratory Rate 22 Blood Pressure Blood Pressure [Ri ght Upper Arm] 123/77 Pulse Oximetry 94 97 98 Oxygen Delivery Me thod Room Air 09/17/24 11:15 09/17/24 11:30 09/17/24 11:45 Temperature Pulse Rate 63 59 L 69 Pulse Rate [Right Pulse Oximeter] Respiratory Rate Blood Pressure Blood Pressure [Ri ght Upper Arm] Pulse Oximetry 96 95 95 Oxygen Delivery Me thod 09/17/24 12:00 09/17/24 12:15 09/17/24 12:30 Temperature Pulse Rate 67 60 68 Pulse Rate [Right Pulse Oximeter] Respiratory Rate Blood Pressure Blood Pressure [Ri ght Upper Arm] Pulse Oximetry 97 95 97 Oxygen Delivery Me thod 09/17/24 12:45 09/17/24 13:10 09/17/24 13:15 Temperature Pulse Rate 66 86 61 Pulse Rate [Right Pulse Oximeter] Respiratory Rate Blood Pressure Blood Pressure [Ri ght Upper Arm] Pulse Oximetry 95 93 96 Oxygen Delivery Me thod 09/17/24 13:30 09/17/24 13:45 09/17/24 14:00 Temperature Pulse Rate 68 68 68 Pulse Rate [Right Pulse Oximeter] Respiratory Rate Blood Pressure Blood Pressure [Ri ght Upper Arm] Pulse Oximetry 95 92 90 Oxygen Delivery Me thod 09/17/24 14:15 09/17/24 14:46 09/17/24 14:47 Temperature Pulse Rate 68 81 76 Pulse Rate [Right Pulse Oximeter] Respiratory Rate Blood Pressure 153/83 H Blood Pressure [Ri ght Upper Arm] Pulse Oximetry 96 95 96 Oxygen Delivery Me thod 09/17/24 14:48 09/17/24 15:09 09/17/24 15:26 Temperature Pulse Rate 75 81 72 Pulse Rate [Right Pulse Oximeter] Respiratory Rate Blood Pressure Blood Pressure [Ri ght Upper Arm] Pulse Oximetry 96 95 93 Oxygen Delivery Me thod 09/17/24 15:30 09/17/24 15:45 09/17/24 16:45 Temperature Pulse Rate 69 75 109 H Pulse Rate [Right Pulse Oximeter] Respiratory Rate Blood Pressure Blood Pressure [Ri ght Upper Arm] Pulse Oximetry 96 91 91 Oxygen Delivery Me thod 09/17/24 16:48 09/17/24 16:49 09/17/24 17:00 Temperature Pulse Rate 86 80 82 Pulse Rate [Right Pulse Oximeter] Respiratory Rate Blood Pressure 108/98 H Blood Pressure [Ri ght Upper Arm] Pulse Oximetry 96 93 95 Oxygen Delivery Me thod 09/17/24 17:02 09/17/24 17:03 09/17/24 17:24 Temperature Pulse Rate 82 115 H Pulse Rate [Right Pulse Oximeter] Respiratory Rate Blood Pressure 127/86 Blood Pressure [Ri ght Upper Arm] Pulse Oximetry 92 Oxygen Delivery [facility] 09/17/24 17:30 09/17/24 17:32 09/17/24 17:45 Temperature Pulse Rate 74 77 89 Pulse Rate [Right Pulse Oximeter] Respiratory Rate Blood Pressure 147/70 H Blood Pressure [Ri ght Upper Arm] Pulse Oximetry 94 97 94 Oxygen Delivery [facility] 09/17/24 18:00 09/17/24 18:02 09/17/24 18:15 Temperature Pulse Rate 95 91 Pulse Rate [Right Pulse Oximeter] Respiratory Rate Blood Pressure 140/80 H Blood Pressure [Ri ght Upper Arm] Pulse Oximetry 93 92 90 Oxygen Delivery [facility] Hospitalist - H&P: Result Labs Labs: Short CBC 09/17/24 Range/Units 12:53 WBC 10.83 (4.50-11.00) K/uL Hgb 12.1 L (13.5-17.5) gm/dL Hct 37.7 (37.0-53.0) % Plt Count 299 (140-440) K/uL BMP 09/17/24 12:53 Sodium 136 Potassium 3.4 L Chloride 95 L Carbon Dioxide 30 BUN 34 H Creatinine 1.0 Glucose 123 H Calcium 9.1 Cardiac Enzymes 09/17/24 Range/Units 12:53 Troponin I 0.02 (0.01-0.04) ng/mL Liver Function 09/17/24 Range/Units 12:53 Total Bilirubin 0.8 (0.1-1.5) mg/dL Direct Bilirubin 0.3 (0.0-0.5) mg/dL AST 30 (12-35) U/L ALT 28 (4-50) U/L Alkaline Phosphatase 128 (40-150) U/L Albumin 4.2 (3.3-5.0) g/dL Urine 09/17/24 Range/Units 14:45 Urine Color Yellow (Yellow) Urine Appearance Clear (Clear) Urine pH 6.0 (5.0-8.5) Ur Specific [place] 1.015 (1.000-1.030) Urine Protein Trace A (Negative) Urine Glucose (UA) Negative (Negative) Imaging CT scan - head: Attestation: I have reviewed the pertinent imaging results. Radiologist's impression: No loss of yo-white differentiation to suggest recent territorial infarct. No intracranial hemorrhage, abnormal extra-axial fluid collection, hydrocephalus or midline shift. The ventricles and cerebral sulci are prominent in caliber, compatible with moderate generalized parenchymal volume loss. There is patchy ill-defined hypoattenuation of the periventricular white matter diffusely, consistent with chronic microvascular ischemic changes. The basal cisterns are patent. The paranasal sinuses and mastoid air cells remain clear. The orbits and calvarium are unremarkable. The cerebellar tonsils are normal position. IMPRESSION: 1. No acute intracranial findings. 2. Moderate generalized parenchymal volume loss with chronic microvascular ischemic changes. Stable examination. Chest x-ray: Attestation: I have reviewed the pertinent imaging results. Radiologist's impression: Medical Devices: In-situ left-sided dual lead cardiac conduction device. Lung Volumes: Adequate inspiration. No significant atelectasis. Lungs: Chronic bilateral diffuse symmetrical reticular opacities consistent with nonspecific interstitial lung disease without pronounced apical basal gradient are unchanged going back to 10/17/2023. No superimposed pulmonary opacity to indicate pneumonia, for example. No findings suspicious for kelsey congestive heart failure. Pleura and Pleural spaces: No significant pleural effusion. No pneumothorax. Mediastinum: Stable cardiomediastinal silhouette. Cardiomegaly is again noted. Chronic unchanged rightward displacement of the trachea. Bony Thorax and Soft Tissues: No significant incidental findings. IMPRESSION: 1. Stable radiographic examination of the chest. No acute cardiopulmonary process. 2. Chronic interstitial lung disease as above. Additional incidental findings as discussed in the body of the report. Assessment and Plan Assessment and plan (1) Need for comfort care: Problem comment: -admitted for comfort cares, orders placed -hold home oral medications for multiple medical comorbidities -regular diet as tolerated understanding aspiration risk -[employer] social media and crm for hospice needs - [facility] scheduled for 09/18 at 10:00 a.m. Status: Acute (2) Dysphagia: Problem comment: -present 2-3 days, unable to tolerate solids, liquids, saliva without coughing or choking -CT without evidence of acute CVA, unable to do MRI with pacemaker -aspiration risk, CXR without evidence of aspiration pneumonia on admission, no fever, no leukocytosis -family is not interested in further evaluation or intervention, MRI, scope, video swallow, nor transfer, as going forward with hospice, comfort cares -hyoscyamine now and as needed -regular diet as tolerated for comfort Status: Acute (3) Altered mental status: Problem comment: -worsened, waxing and waning, over last 2-3 days. Increased restlessness, hallucinations -history of cognitive impairment per EMR review. [place] 18/30 on 10/18/2023. Mini cog scale 1 on 08/17/2024 suggesting dementia -afebrile, no leukocytosis, UA unremarkable, CT head without acute findings -management in setting of comfort cares Status: Acute (4) Skin tear: Problem comment: -following a fall on 09/14/2024, evaluated in ED. Continue wound cares Status: Acute (5) Atrial fibrillation: Problem comment: -home medications include diltiazem and metoprolol. Chronic anticoagulation with apixaban. Hold home medications in setting of dysphagia, need for hospice evaluation, comfort cares Status: Acute (6) CHF (congestive heart failure): Problem comment: -chronic diastolic. Suspected exacerbation over the last several days. BNP stable. Holding home torsemide, further management in setting of comfort cares Status: Acute Plan Comfort cares. client services associate to assist with hospice evaluation. [facility] scheduled to evaluate tomorrow, prior to hospitalization Total Time Spent Total Time Spent: Total time spent caring for the patient today was 75 minutes. This includes time spent for the visit reviewing the chart, time spent during the visit, time spent after the visit and documentation and planning in coordination of care.
[2024-09-17] MEDS: LORazepam 2 MG/ML inj IVP (19:29)
[2024-09-17] MEDS: fentaNYL 12 mcg/hr PATCH 1 PATCH TRANSDERMA (19:30)
[2024-09-17] MEDS: HYOSCYAMINE SULFATE 0.125 MG TAB 0.25 MG SUBLINGUAL (22:15)
[2024-09-17] MEDS: SODIUM CHLORIDE 0.9 % (FLUSH) 10 ML SYRINGE 5 ML IVF (22:16)
[2024-09-17] MEDS: MORPHINE 10 MG/0.5 ML ORAL SOLN PO (22:23)
--- NOTE | 2024-09-17 23:36 | PC.NURSE ---
Patient admitted to 243. Up to bathroom with 2 assist, walker and gait belt. Unable to answer any questions, speech garbled. Turn and reposition while in bed. Frequent oral cares. PRN Ativan and Morphine given x1 for facial grimace and yelling ow with turn and reposition.
[2024-09-18] VITALS: PULSE 80; RESP 40
--- NOTE | 2024-09-18 06:32 | PC.NURSE ---
end of shift note: pt on comfort cares. turned and repositioned with pillows for comfort prn. iv patent. incontinent of void x1. pt only mumbled when spoken to. pt remains tachypneic. scopolamine patch present behind right ear. fentanyl patch present to left shoulder.
[2024-09-18 07:44] VITALS: PULSE 104; RESP 37
[2024-09-18] MEDS: LORazepam 2 MG/ML inj IVP (08:05)
--- NOTE | 2024-09-18 10:29 | PM.IMPN1 ---
Progress Note: A&P Assessment and plan (1) Need for comfort care: Problem details: -admitted for comfort cares, orders placed -hold home oral medications for multiple medical comorbidities -regular diet as tolerated understanding aspiration risk -social service assistant for hospice needs - [facility] scheduled for 09/18 at 10:00 a.m. Status: Acute (2) Dysphagia: Problem details: -present 2-3 days, unable to tolerate solids, liquids, saliva without coughing or choking -CT without evidence of acute CVA, unable to do MRI with pacemaker -aspiration risk, CXR without evidence of aspiration pneumonia on admission, no fever, no leukocytosis -family is not interested in further evaluation or intervention, MRI, scope, video swallow, nor transfer, as going forward with hospice, comfort cares -hyoscyamine now and as needed -regular diet as tolerated for comfort Status: Acute (3) Altered mental status: Problem details: -worsened, waxing and waning, over last 2-3 days. Increased restlessness, hallucinations -history of cognitive impairment per EMR review. [place] 18/30 on 10/18/2023. Mini cog scale 1 on 08/17/2024 suggesting dementia -afebrile, no leukocytosis, UA unremarkable, CT head without acute findings -management in setting of comfort cares Status: Acute (4) Skin tear: Problem details: -following a fall on 09/14/2024, evaluated in ED. Continue wound cares Status: Acute (5) Atrial fibrillation: Problem details: -home medications include diltiazem and metoprolol. Chronic anticoagulation with apixaban. Hold home medications in setting of dysphagia, need for hospice evaluation, comfort cares Status: Acute (6) CHF (congestive heart failure): Problem details: -chronic diastolic. Suspected exacerbation over the last several days. BNP stable. Holding home torsemide, further management in setting of comfort cares Status: Acute Exam Const: Vital Signs, click to edit/add: Vital Signs - 24 hr 09/17/24 10:41 09/17/24 10:53 09/17/24 11:00 Temperature 98 F Pulse Rate 101 H 62 Pulse Rate [Left P ulse Oximeter] Pulse Rate [Right Pulse Oximeter] 103 H Respiratory Rate 22 Blood Pressure Blood Pressure [Ri ght Arm] Blood Pressure [Ri ght Upper Arm] 123/77 Pulse Oximetry 94 97 98 Oxygen Delivery Me thod Room Air 09/17/24 11:15 09/17/24 11:30 09/17/24 11:45 Temperature Pulse Rate 63 59 L 69 Pulse Rate [Left P ulse Oximeter] Pulse Rate [Right Pulse Oximeter] Respiratory Rate Blood Pressure Blood Pressure [Ri ght Arm] Blood Pressure [Ri ght Upper Arm] Pulse Oximetry 96 95 95 Oxygen Delivery Me thod 09/17/24 12:00 09/17/24 12:15 09/17/24 12:30 Temperature Pulse Rate 67 60 68 Pulse Rate [Left P ulse Oximeter] Pulse Rate [Right Pulse Oximeter] Respiratory Rate Blood Pressure Blood Pressure [Ri ght Arm] Blood Pressure [Ri ght Upper Arm] Pulse Oximetry 97 95 97 Oxygen Delivery Me thod 09/17/24 12:45 09/17/24 13:10 09/17/24 13:15 Temperature Pulse Rate 66 86 61 Pulse Rate [Left P ulse Oximeter] Pulse Rate [Right Pulse Oximeter] Respiratory Rate Blood Pressure Blood Pressure [Ri ght Arm] Blood Pressure [Ri ght Upper Arm] Pulse Oximetry 95 93 96 Oxygen Delivery Me thod 09/17/24 13:30 09/17/24 13:45 09/17/24 14:00 Temperature Pulse Rate 68 68 68 Pulse Rate [Left P ulse Oximeter] Pulse Rate [Right Pulse Oximeter] Respiratory Rate Blood Pressure Blood Pressure [Ri ght Arm] Blood Pressure [Ri ght Upper Arm] Pulse Oximetry 95 92 90 Oxygen Delivery Me thod 09/17/24 14:15 09/17/24 14:46 09/17/24 14:47 Temperature Pulse Rate 68 81 76 Pulse Rate [Left P ulse Oximeter] Pulse Rate [Right Pulse Oximeter] Respiratory Rate Blood Pressure 153/83 H Blood Pressure [Ri ght Arm] Blood Pressure [Ri ght Upper Arm] Pulse Oximetry 96 95 96 Oxygen Delivery Me thod 09/17/24 14:48 09/17/24 15:09 09/17/24 15:26 Temperature Pulse Rate 75 81 72 Pulse Rate [Left P ulse Oximeter] Pulse Rate [Right Pulse Oximeter] Respiratory Rate Blood Pressure Blood Pressure [Ri ght Arm] Blood Pressure [Ri ght Upper Arm] Pulse Oximetry 96 95 93 Oxygen Delivery Me thod 09/17/24 15:30 09/17/24 15:45 09/17/24 16:45 Temperature Pulse Rate 69 75 109 H Pulse Rate [Left P ulse Oximeter] Pulse Rate [Right Pulse Oximeter] Respiratory Rate Blood Pressure Blood Pressure [Ri ght Arm] Blood Pressure [Ri ght Upper Arm] Pulse Oximetry 96 91 91 Oxygen Delivery Me thod 09/17/24 16:48 09/17/24 16:49 09/17/24 17:00 Temperature Pulse Rate 86 80 82 Pulse Rate [Left P ulse Oximeter] Pulse Rate [Right Pulse Oximeter] Respiratory Rate Blood Pressure 108/98 H Blood Pressure [Ri ght Arm] Blood Pressure [Ri ght Upper Arm] Pulse Oximetry 96 93 95 Oxygen Delivery Me thod 09/17/24 17:02 09/17/24 17:03 09/17/24 17:24 Temperature Pulse Rate 82 115 H Pulse Rate [Left P ulse Oximeter] Pulse Rate [Right Pulse Oximeter] Respiratory Rate Blood Pressure 127/86 Blood Pressure [Ri ght Arm] Blood Pressure [Ri ght Upper Arm] Pulse Oximetry 92 Oxygen Delivery Me thod 09/17/24 17:30 09/17/24 17:32 09/17/24 17:45 Temperature Pulse Rate 74 77 89 Pulse Rate [Left P ulse Oximeter] Pulse Rate [Right Pulse Oximeter] Respiratory Rate Blood Pressure 147/70 H Blood Pressure [Ri ght Arm] Blood Pressure [Ri ght Upper Arm] Pulse Oximetry 94 97 94 Oxygen Delivery Me thod 09/17/24 18:00 09/17/24 18:02 09/17/24 18:15 Temperature Pulse Rate 95 91 Pulse Rate [Left P ulse Oximeter] Pulse Rate [Right Pulse Oximeter] Respiratory Rate Blood Pressure 140/80 H Blood Pressure [Ri ght Arm] Blood Pressure [Ri ght Upper Arm] Pulse Oximetry 93 92 90 Oxygen Delivery Me thod 09/17/24 21:09 09/17/24 21:09 09/18/24 00:00 Temperature 100.5 F H Pulse Rate Pulse Rate [Left P ulse Oximeter] 98 80 Pulse Rate [Right Pulse Oximeter] Respiratory Rate 34 H 34 H 40 H Blood Pressure Blood Pressure [Ri ght Arm] 125/90 H Blood Pressure [Ri ght Upper Arm] Pulse Oximetry 93 Oxygen Delivery Me od Room Air 09/18/24 07:44 Temperature Pulse Rate Pulse Rate [Left P ulse Oximeter] 104 H Pulse Rate [Right Pulse Oximeter] Respiratory Rate 37 H Blood Pressure Blood Pressure [Ri ght Arm] Blood Pressure [Ri ght Upper Arm] Pulse Oximetry Oxygen Delivery Me thod Labs Labs: Laboratory Results - last 24 hr 09/17/24 09/17/24 09/17/24 12:14 12:36 12:53 WBC 10.83 RBC 3.72 L Hgb 12.1 L Hct 37.7 MCV 101 H MCH 33 MCHC 32 RDW Coeff of [place] 15.4 Plt Count 299 Neut % (Auto) 75.3 H Lymph % (Auto) 10.2 L [place] % (Auto) 13.2 H Eos % (Auto) 0.6 Baso % (Auto) 0.5 Neut # (Auto) 8.20 H Lymph # (Auto) 1.10 [place] # (Auto) 1.40 H Eos # (Auto) 0.06 Baso # (Auto) 0.05 Abs Immat Gran (auto) 0.02 Imm/Tot Granulo (auto) 0.2 VBG pH 7.473 H VBG pCO2 43 VBG pO2 < 30.1 VBG HCO3 31 H Sodium 136 Potassium 3.4 L Chloride 95 L Carbon Dioxide 30 Anion Gap 11 BUN 34 H Creatinine 1.0 Estimated Creat Clear 56.92 Estimated GFR 77 Glucose 123 H Lactate 1.6 Calcium 9.1 Magnesium 1.7 Total Bilirubin 0.8 Direct Bilirubin 0.3 AST 30 ALT 28 Alkaline Phosphatase 128 Troponin I 0.02 C-Reactive Protein 7.1 H NT-Pro-B Natriuret Pep 3890 Total Protein 7.4 Albumin 4.2 Urine Color Urine Appearance Urine pH Ur Specific [place] Urine Protein Urine Glucose (UA) Urine Ketones Urine Blood Urine Nitrite Urine Bilirubin Urine Urobilinogen Ur Leukocyte Esterase Urine RBC Urine WBC Ur Squamous Epith Cells Urine Bacteria SARS-CoV-2 (PCR) Negative SARS-CoV-2 Influenza Type A (PCR) Negative PCR FLU A Influenza Type B (PCR) Negative PCR FLU B RSV (PCR) Negative PCR RSV POC Troponin I 0.03 09/17/24 14:45 WBC RBC Hgb Hct MCV MCH MCHC RDW Coeff of [place] Plt Count Neut % (Auto) Lymph % (Auto) [place] % (Auto) Eos % (Auto) Baso % (Auto) Neut # (Auto) Lymph # (Auto) [place] # (Auto) Eos # (Auto) Baso # (Auto) Abs Immat Gran (auto) Imm/Tot Granulo (auto) VBG pH VBG pCO2 VBG pO2 VBG HCO3 Sodium Potassium Chloride Carbon Dioxide Anion Gap BUN Creatinine Estimated Creat Clear Estimated GFR Glucose Lactate Calcium Magnesium Total Bilirubin Direct Bilirubin AST ALT Alkaline Phosphatase Troponin I C-Reactive Protein NT-Pro-B Natriuret Pep Total Protein Albumin Urine Color Yellow Urine Appearance Clear Urine pH 6.0 Ur Specific [place] 1.015 Urine Protein Trace A Urine Glucose (UA) Negative Urine Ketones Negative Urine Blood Negative Urine Nitrite Negative Urine Bilirubin Negative Urine Urobilinogen 0.2 Ur Leukocyte Esterase Negative Urine RBC 0-2 Urine WBC 2-5 Ur Squamous Epith Cells None Urine Bacteria None SARS-CoV-2 (PCR) Influenza Type A (PCR) Influenza Type B (PCR) RSV (PCR) POC Troponin I
[2024-09-18] MEDS: HALOPERIDOL 5 MG/ML INJ IV (10:44)
--- NOTE | 2024-09-18 10:44 | PM.DS1 ---
DS: Providers Provider Date Seen: 09/18/24 Date of admission: 09/17/24 18:27 Primary care physician: Neville Bowie MD Admitting Clinician: Radha Gil MD Consults: 09/17/24 18:46 Consult to Vertical Roll Operator [CONS] Routine Comment: [facility] consult 09/18@10am Reason for Consult:: Social Service Consult Hospice Needed Attending Physician on discharge: Christi Whittington MD DS: Diagnosis Discharge Diagnosis (1) Need for comfort care: Status: Acute Problem details: -admitted for comfort cares, orders placed -hold home oral medications for multiple medical comorbidities -regular diet as tolerated understanding aspiration risk -social sciences lecturer for hospice needs - [facility] scheduled for 09/18 at 10:00 a.m. (2) Dysphagia: Status: Acute Problem details: -present 2-3 days, unable to tolerate solids, liquids, saliva without coughing or choking -CT without evidence of acute CVA, unable to do MRI with pacemaker -aspiration risk, CXR without evidence of aspiration pneumonia on admission, no fever, no leukocytosis -family is not interested in further evaluation or intervention, MRI, scope, video swallow, nor transfer, as going forward with hospice, comfort cares -hyoscyamine now and as needed -regular diet as tolerated for comfort (3) Altered mental status: Status: Acute Problem details: -worsened, waxing and waning, over last 2-3 days. Increased restlessness, hallucinations -history of cognitive impairment per EMR review. [place] 18/30 on 10/18/2023. Mini cog scale 1 on 08/17/2024 suggesting dementia -afebrile, no leukocytosis, UA unremarkable, CT head without acute findings -management in setting of comfort cares (4) Skin tear: Status: Acute Problem details: -following a fall on 09/14/2024, evaluated in ED. Continue wound cares (5) Atrial fibrillation: Status: Acute Problem details: -home medications include diltiazem and metoprolol. Chronic anticoagulation with apixaban. Hold home medications in setting of dysphagia, need for hospice evaluation, comfort cares (6) CHF (congestive heart failure): Status: Acute Problem details: -chronic diastolic. Suspected exacerbation over the last several days. BNP stable. Holding home torsemide, further management in setting of comfort cares DS: Summary Hospital Course Hospital Course: Griffin Lindsey JR is a 78 year old male past medical history significant for atrial fibrillation on chronic anticoagulation, CHF, idiopathic pulmonary fibrosis, valvular heart disease (tricuspid/mitral), heart block with pacemaker, bladder cancer, cognitive impairment was admitted from the ED with increasing weakness, cognitive impairment, dysphagia, general decline. Patient has been having progressive dysphagia preventing him from taking his medications or eating for the past 2 days. In addition, Pt has been agitated and we needed to add haloperidol and benzodiazepines to help him calm down and not hurt himself. In the ED, a head CT was obtained (No acute intracranial findings). No further interventions were done as family wants him to be comfort care. Patient's stated that they have arranged for a hospice consult on 09/18 morning at 10:00 a.m. with [facility] because of their concern he is declining. [facility] nurse presented on 09/18 and discontinued all of his home meds and will start his comfort care meds at home upon discharge. Status at Discharge Functional status at discharge: bed bound Overall status at discharge: patient is not back to baseline Time Spent with Patient Time attestation: Total time spent providing and/or coordinating discharge services: 50 min Exam Narrative: Exam Narrative: General: Restless, agitated HEENT: Superficial abrasions on his forehead and nose Cardiovascular: RRR, paced. No pitting edema Pulmonary: good air entery b/l, +ve crackles. Neurological: Alert, restless, confused Psych: Unable to evaluate Const: Vital Signs, click to edit/add: Vital Signs - 24 hr 09/17/24 10:53 09/17/24 11:00 09/17/24 11:15 Temperature Pulse Rate 101 H 62 63 Pulse Rate [Left P ulse Oximeter] Respiratory Rate Blood Pressure Blood Pressure [Ri ght Arm] Pulse Oximetry 97 98 96 Oxygen Delivery Me thod 09/17/24 11:30 09/17/24 11:45 09/17/24 12:00 Temperature Pulse Rate 59 L 69 67 Pulse Rate [Left P ulse Oximeter] Respiratory Rate Blood Pressure Blood Pressure [Ri ght Arm] Pulse Oximetry 95 95 97 Oxygen Delivery Me thod 09/17/24 12:15 09/17/24 12:30 09/17/24 12:45 Temperature Pulse Rate 60 68 66 Pulse Rate [Left P ulse Oximeter] Respiratory Rate Blood Pressure Blood Pressure [Ri ght Arm] Pulse Oximetry 95 97 95 Oxygen Delivery Me thod 09/17/24 13:10 09/17/24 13:15 09/17/24 13:30 Temperature Pulse Rate 86 61 68 Pulse Rate [Left P ulse Oximeter] Respiratory Rate Blood Pressure Blood Pressure [Ri ght Arm] Pulse Oximetry 93 96 95 Oxygen Delivery Me thod 09/17/24 13:45 09/17/24 14:00 09/17/24 14:15 Temperature Pulse Rate 68 68 68 Pulse Rate [Left P ulse Oximeter] Respiratory Rate Blood Pressure Blood Pressure [Ri ght Arm] Pulse Oximetry 92 90 96 Oxygen Delivery Me thod 09/17/24 14:46 09/17/24 14:47 09/17/24 14:48 Temperature Pulse Rate 81 76 75 Pulse Rate [Left P ulse Oximeter] Respiratory Rate Blood Pressure 153/83 H Blood Pressure [Ri ght Arm] Pulse Oximetry 95 96 96 Oxygen Delivery Me thod 09/17/24 15:09 09/17/24 15:26 09/17/24 15:30 Temperature Pulse Rate 81 72 69 Pulse Rate [Left P ulse Oximeter] Respiratory Rate Blood Pressure Blood Pressure [Ri ght Arm] Pulse Oximetry 95 93 96 Oxygen Delivery Me thod 09/17/24 15:45 09/17/24 16:45 09/17/24 16:48 Temperature Pulse Rate 75 109 H 86 Pulse Rate [Left P ulse Oximeter] Respiratory Rate Blood Pressure 108/98 H Blood Pressure [Ri ght Arm] Pulse Oximetry 91 91 96 Oxygen Delivery Me thod 09/17/24 16:49 09/17/24 17:00 09/17/24 17:02 Temperature Pulse Rate 80 82 Pulse Rate [Left P ulse Oximeter] Respiratory Rate Blood Pressure 127/86 Blood Pressure [Ri ght Arm] Pulse Oximetry 93 95 Oxygen Delivery Me thod 09/17/24 17:03 09/17/24 17:24 09/17/24 17:30 Temperature Pulse Rate 82 115 H 74 Pulse Rate [Left P ulse Oximeter] Respiratory Rate Blood Pressure Blood Pressure [Ri ght Arm] Pulse Oximetry 92 94 Oxygen Delivery Me thod 09/17/24 17:32 09/17/24 17:45 09/17/24 18:00 Temperature Pulse Rate 77 89 95 Pulse Rate [Left P ulse Oximeter] Respiratory Rate Blood Pressure 147/70 H Blood Pressure [Ri ght Arm] Pulse Oximetry 97 94 93 Oxygen Delivery Me thod 09/17/24 18:02 09/17/24 18:15 09/17/24 21:09 Temperature 100.5 F H Pulse Rate 91 Pulse Rate [Left P ulse Oximeter] 98 Respiratory Rate 34 H Blood Pressure 140/80 H Blood Pressure [Ri ght Arm] 125/90 H Pulse Oximetry 92 90 93 Oxygen Delivery Me thod Room Air 09/17/24 21:09 09/18/24 00:00 09/18/24 07:44 Temperature Pulse Rate Pulse Rate [Left P ulse Oximeter] 80 104 H Respiratory Rate 34 H 40 H 37 H Blood Pressure Blood Pressure [Ri ght Arm] Pulse Oximetry Oxygen Delivery Me thod DS: Data Data Completed and Pending Labs on day of discharge: Labs from last 24 hours 09/17/24 09/17/24 09/17/24 14:45 12:53 12:36 WBC 10.83 RBC 3.72 L Hgb 12.1 L Hct 37.7 MCV 101 H MCH 33 MCHC 32 RDW Coeff of [place] 15.4 Plt Count 299 Neut % (Auto) 75.3 H Lymph % (Auto) 10.2 L [place] % (Auto) 13.2 H Eos % (Auto) 0.6 Baso % (Auto) 0.5 Neut # (Auto) 8.20 H Lymph # (Auto) 1.10 [place] # (Auto) 1.40 H Eos # (Auto) 0.06 Baso # (Auto) 0.05 Abs Immat Gran (auto) 0.02 Imm/Tot Granulo (auto) 0.2 VBG pH 7.473 H VBG pCO2 43 VBG pO2 < 30.1 VBG HCO3 31 H Sodium 136 Potassium 3.4 L Chloride 95 L Carbon Dioxide 30 Anion Gap 11 BUN 34 H Creatinine 1.0 Estimated Creat Clear 56.92 Estimated GFR 77 Glucose 123 H Lactate 1.6 Calcium 9.1 Magnesium 1.7 Total Bilirubin 0.8 Direct Bilirubin 0.3 AST 30 ALT 28 Alkaline Phosphatase 128 Troponin I 0.02 C-Reactive Protein 7.1 H NT-Pro-B Natriuret Pep 3890 Total Protein 7.4 Albumin 4.2 Urine Color Yellow Urine Appearance Clear Urine pH 6.0 Ur Specific [place] 1.015 Urine Protein Trace A Urine Glucose (UA) Negative Urine Ketones Negative Urine Blood Negative Urine Nitrite Negative Urine Bilirubin Negative Urine Urobilinogen 0.2 Ur Leukocyte Esterase Negative Urine RBC 0-2 Urine WBC 2-5 Ur Squamous Epith Cells None Urine Bacteria None SARS-CoV-2 (PCR) Negative SARS-CoV-2 Influenza Type A (PCR) Negative PCR FLU A Influenza Type B (PCR) Negative PCR FLU B RSV (PCR) Negative PCR RSV POC Troponin I 09/17/24 12:14 WBC RBC Hgb Hct MCV MCH MCHC RDW Coeff of [place] Plt Count Neut % (Auto) Lymph % (Auto) [place] % (Auto) Eos % (Auto) Baso % (Auto) Neut # (Auto) Lymph # (Auto) [place] # (Auto) Eos # (Auto) Baso # (Auto) Abs Immat Gran (auto) Imm/Tot Granulo (auto) VBG pH VBG pCO2 VBG pO2 VBG HCO3 Sodium Potassium Chloride Carbon Dioxide Anion Gap BUN Creatinine Estimated Creat Clear Estimated GFR Glucose Lactate Calcium Magnesium Total Bilirubin Direct Bilirubin AST ALT Alkaline Phosphatase Troponin I C-Reactive Protein NT-Pro-B Natriuret Pep Total Protein Albumin Urine Color Urine Appearance Urine pH Ur Specific [place] Urine Protein Urine Glucose (UA) Urine Ketones Urine Blood Urine Nitrite Urine Bilirubin Urine Urobilinogen Ur Leukocyte Esterase Urine RBC Urine WBC Ur Squamous Epith Cells Urine Bacteria SARS-CoV-2 (PCR) Influenza Type A (PCR) Influenza Type B (PCR) RSV (PCR) POC Troponin I 0.[address] scan - head: Radiologist's impression: No loss of yo-white differentiation to suggest recent territorial infarct. No intracranial hemorrhage, abnormal extra-axial fluid collection, hydrocephalus or midline shift. The ventricles and cerebral sulci are prominent in caliber, compatible with moderate generalized parenchymal volume loss. There is patchy ill-defined hypoattenuation of the periventricular white matter diffusely, consistent with chronic microvascular ischemic changes. The basal cisterns are patent. The paranasal sinuses and mastoid air cells remain clear. The orbits and calvarium are unremarkable. The cerebellar tonsils are normal position. IMPRESSION: 1. No acute intracranial findings. 2. Moderate generalized parenchymal volume loss with chronic microvascular ischemic changes. Stable examination. Chest x-ray: Attestation: I have reviewed the pertinent imaging results. Radiologist's impression: Medical Devices: In-situ left-sided dual lead cardiac conduction device. Lung Volumes: Adequate inspiration. No significant atelectasis. Lungs: Chronic bilateral diffuse symmetrical reticular opacities consistent with nonspecific interstitial lung disease without pronounced apical basal gradient are unchanged going back to 10/17/2023. No superimposed pulmonary opacity to indicate pneumonia, for example. No findings suspicious for kelsey congestive heart failure. Pleura and Pleural spaces: No significant pleural effusion. No pneumothorax. Mediastinum: Stable cardiomediastinal silhouette. Cardiomegaly is again noted. Chronic unchanged rightward displacement of the trachea. Bony Thorax and Soft Tissues: No significant incidental findings. IMPRESSION: 1. Stable radiographic examination of the chest. No acute cardiopulmonary process. 2. Chronic interstitial lung disease as above. Additional incidental findings as discussed in the body of the report. Discharge Plan Discharge Disposition: [facility]- (Hospice) Date of Admission: 09/17/24 18:27 Attending Provider on Discharge: Christi Whittington Discharge Medications: Discontinued torsemide 10 mg tablet 100 mg PO HS allopurinol 300 mg tablet 150 mg PO DAILY atorvastatin 80 mg tablet 80 mg PO DAILY diltiazem HCl [Cardizem CD] 180 mg capsule,extended release 24hr 180 mg PO DAILY mirtazapine [Remeron] 15 mg tablet 22.5 mg feeding tube HS aspirin 81 mg capsule 81 mg PO DAILY cyclobenzaprine 10 mg tablet 10 mg PO HS Ofev 100 mg capsule 100 mg PO Q12H metoprolol succinate 50 mg capsule,sprinkle,ER 24hr 50 mg PO .pm dose metoprolol succinate 25 mg tablet extended release 24 hr 25 mg PO .am dose Eliquis 5 mg tablet 5 mg PO BID Discharge Orders: Discharge Order (Routine); Ordered 09/18/24 Ordered By: Christi Whittington Additional Instructions: -All medications as per hospice care. -Follow up with hospice as an outpatient. Activity Detail: As per hospice Diet Detail: As per hospice Follow Up Appointments: Neville Bowie MD [Primary Care Provider] - Forms: [employer] Info Instructions
--- NOTE | 2024-09-18 12:32 | PC.SOCIAL ---
Discharge planning: bull gang worker met with pt's , son and a hospice nurse from [facility]. Pt will be discharging home today with his family and [facility] in place. [facility] has set-up all the durable medical equipment and comfort medications. The family asked this worker to set-up transportation as they did not feel comfortable transporting the pt home. bull gang worker found that pt's insurance should cover the cost of the transportation due to pt needing supervision during the transport. Pt moves his limbs often inadvertently in a jerking manner which may cause him to fall out of a wheelchair or stretcher. Non-emergent EMS transportation is set for noon. Pt's family was thankful for the assistance. Social work to follow-up as needed.
--- NOTE | 2024-09-18 13:23 | PC.NURSE ---
Nursing Care Hours: [id number] Pt this shift restless and tachypneic. Ativan given and effective. during family visit, pt became restless again and sat up, attempted to get out of bed but was still unresponsive and confused. Haldol given per hospitalist order, immediately effective and pt assisted back into bed and remained calm rest of shift. Void brief changed x1. IV removed for discharge. EMS transfer to home for hospice.
== END 2024-09-18 12:35 | disposition hospice, home (50) ==
LOC: ED 17:35 → MEDSURG 18:29
PROVIDERS: Admitting Provider Family Medicine; Emergency Provider Family Medicine; PCP Family Medicine; Visit Provider Family Medicine
DX: R13.10 Dysphagia, unspecified (principal); I50.9 Heart failure, unspecified; I48.91 Unspecified atrial fibrillation; R41.82 Altered mental status, unspecified; Z51.5 Encounter for palliative care; J84.9 Interstitial pulmonary disease, unspecified; J84.112 Idiopathic pulmonary fibrosis; R45.1 Restlessness and agitation; R44.3 Hallucinations, unspecified; R53.1 Weakness; S01.81XA Laceration without foreign body of other part of head, initial encounter; S61.412A Laceration without foreign body of left hand, initial encounter; I10 Essential (primary) hypertension; M10.9 Gout, unspecified; Z79.01 Long term (current) use of anticoagulants; Z79.82 Long term (current) use of aspirin; Z87.19 Personal history of other diseases of the digestive system; Z86.79 Personal history of other diseases of the circulatory system; Z85.828 Personal history of other malignant neoplasm of skin; Z85.820 Personal history of malignant melanoma of skin; Z87.891 Personal history of nicotine dependence; Z96.1 Presence of intraocular lens; Z95.0 Presence of cardiac pacemaker; Z98.49 Cataract extraction status, unspecified eye; Z90.89 Acquired absence of other organs; Z90.5 Acquired absence of kidney; Z98.890 Other specified postprocedural states
CPT/HCPCS: 36415; 70450; 70496; 70498; 71046; 80048; 80076; 81001; 82803; 83605; 83735; 83880; 84484; 85025; 86140; 87631; 93005; 94640; 94761; 96366; 96372; 96374; 96375; 96376; 99284; 99285; A9270; G0378; J1630; J1940; J2060; Q9967

== ENCOUNTER 2024-09-18 12:36 | Outpatient (CLI) | payer MEDICARE, BC, SELFPAY ==
--- OUTSIDE RECORDS SUMMARY | 2024-09-25 01:26 | XMS_ITS | Clinical Summary ---
Author Organization [facility] Address [place], [place] [address] Care Team Providers Care Duck Farmer Name Role Phone Neville Bowie MD Primary Care Provider [phone] Bobby Floyd Unavailable [phone] Ruthann Wilson MD Unavailable [phone] Ash Ricketts Unavailable [phone] Allergies Active Allergy Reactions Criticality Noted Date Comments Bupropion Hcl Myalgia 06/21/2022 Possible stroke Medications Medication Sig Dispensed Refills Start Date End Date Status aspirin (ECOTRIN) 81 mg enteric coated tablet Take 1 tablet by mouth once daily with a meal. 0 05/24/2014 Active nintedanib (Ofev) 100 mg capIndications:Idiopa thic pulmonary fibrosis (HC) Take by mouth. Taking 1 pill twice daily for pulmonary fibrosis, prescribed by pulmonary 0 10/07/2023 Active allopurinoL (ZYLOPRIM) 300 mg tabletIndications:Acu te idiopathic gout involving toe, unspecified laterality Take 0.5 Tablets (150 mg) by mouth once daily. To prevent gout. 45 Tablet 3 08/17/2024 Active atorvastatin (LIPITOR) 80 mg tabletIndications:Mix ed hyperlipidemia Take 1 Tablet (80 mg) by mouth at bedtime. For Cholesterol. 90 Tablet 3 08/17/2024 Active metoprolol succinate (TOPROL XL) 25 mg Sustained-Release tabletIndications:Ess ential hypertension TAKE 1TABLET IN THE MORNING AND 2 TABLETS IN THE EVENING. For heart and blood pressure. 270 Tablet 3 08/17/2024 Active mirtazapine (REMERON) 15 mg tabletIndications:Ins omnia, idiopathic Take 1.5 Tablets (22.5 mg) by mouth at bedtime. 135 Tablet 3 08/17/2024 Active sildenafil citrate (Viagra) 100 mg tabletIndications:Oth er male erectile dysfunction Take 0.5-1 Tablets (50-100 mg) by mouth once daily if needed for Erectile Dysfunction. Take 30min to 4 hours before sexual activity. Max 100mg/24hr 30 Tablet 3 08/17/2024 Active dilTIAZem (DILACOR XR; DILTIA XT) 180 mg Extended-Release capsuleIndications:Es sential hypertension Take 1 Capsule (180 mg) by mouth once daily. For blood pressure. 91 Capsule 3 08/24/2024 Active Active Problems Problem Noted Date Diagnosed Date Chronic atrial fibrillation 09/16/2024 Overview (09/16/2024): Summer 2023 approximately start. Aug [address] Floyd restarted oleg. 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 NSVT (nonsustained ventricular tachycardia) 12/05 History of nephrectomy 11/01/2023 Community acquired pneumonia 10/18/2023 Overview (10/18/2023): October 2023: [facility] emergency room with question infiltrate vs chronic fibrosis, but elevated WBC, Fever, and confusion/ Lethargy. Mild cognitive impairment 10/10/2023 Overview (10/10/2023): Diagnosis [place], 2014. Paroxysmal SVT (supraventricular tachycardia) Heart block AV second degree 10/07/2023 Overview (10/07/2023): S/P pacemaker 2010 and pacemaker replacement 2022. Idiopathic pulmonary fibrosis 10/07/2023 Overview (10/07/2023): Nov 2023 has [place] pulmonary appointment. Mixed hyperlipidemia 10/07/2023 Valvular heart disease 10/07/2023 Acute idiopathic gout involving toe 10/07/2023 Overview (10/07/2023): On allopurinol. Urothelial carcinoma of bladder 10/07/2023 Overview (09/16/2024): 2021 bladder cancer, treated in [place]. Urothelial carcinoma with skeletal metastases Essential hypertension 10/07/2023 Overview (01/01/2024): Nov 2023: on diltiazem XR 180mg and Metoprolol succinate ( toprol XL) 25mg twice daily. December 2023: due to high blood pressures, continued diltiazem 180 mg and increased toprol XL to 25mg morning and 50mg in the evening. Other male erectile dysfunction 10/07/2023 Tinnitus 05/25/2014 Hyperlipidemia 05/25/2014 Resolved Problems Problem Noted Date Diagnosed Date Resolved Date Stage 3a chronic kidney disease 10/07/2023 12/18/2023 Overview (10/07/2023): S/P left Nephrectomy 2021 for cancer. Encounters Date Type Department Care Team Description 09/17/2024 Orders Only [facility] Scanner 1 scan: (1-Ord) [facility], ANGIO HEAD, 09/17/2024 09/17/2024 Orders Only [facility] Scanner 1 scan: (1-Ord) [facility], HEAD/BRAIN WO CON, 09/17/2024 09/17/2024 Orders Only [facility] Scanner 1 scan: (1-Ord) [facility], CT ANGIO NECK, 09/17/2024 09/17/2024 Orders Only [facility] Scanner 1 scan: (1-Ord) [facility], XR CHEST 2V, 09/17/2024 09/14/2024 Orders Only [facility] Scanner 1 scan: (1-Ord) [facility], HEAD/BRAIN WO CON, 09/14/2024 09/14/2024 Orders Only [facility] Scanner 1 scan: (1-Ord) [facility], CHEST 2V, 09/14/2024 08/25/2024 10:45 AM CDT Orders Only [facility] [address] [place] [address] Lab, [facility] 08/24/2024 2:30 PM CDT Office Visit [facility] [address] [place] [address] Gudelia Krishnamurthy, [facility] Visit 08/24/2024 Travel 08/21/2024 Refill [facility] [address] [place] [address] Neville Bowie MD Refill Request (dilTIAZem (DILACOR XR; DILTIA XT) 180 mg Extended-Release capsule /) 08/17/2024 10:45 AM CDT Office Visit [facility] [address] [place] [address] Neville Bowie MD Medicare ANNUAL (subsequent) Visit (AGE 78); Immunization/Injecti on 08/17/2024 Travel 08/13/2024 Travel 08/12/2024 12:30 PM CDT Office Visit [facility] [address] [place] [address] Gudelia Krishnamurthy, [facility] Visit 08/12/2024 Travel 08/11/2024 Refill [facility] [address] [place] [address] Neville Bowie MD Refill Request (Metoprolol Succinate) from Last 3 Months Immunizations Name Administration Dates Next Due COVID-19 VACCINE SPIKEVAX (M ODERNA 50MCG/0.5ML) 12YO+ PFS 08/17/2024 Influenza, High-dose Inactivated 10/12/2019,09/06,08/26/2017 Influenza, High-dose Quadriv alent Inactivated 07/19/2022 Influenza, Inactivated AIIV4 (Age 65+ Years) Preserv Free 08/15/2023,08/22/2021,09/07/2020 Influenza, Inactivated IIV3 (Age 65+ Years) Preserv Free 08/17/2024 Pneumococcal conj 13-Valent (Prevnar 13) 016 RSV, Recombinant ADJ Reconst ituted (Arexvy 120MCG/0.5mL) 11/08/2023 Tdap 02/20/2021 Zoster (Shingrix-RZV, recombinant) 11/08/2023, Family History Medical History Relation Name Comments Diabetes Brother Jagjit Diabetes Father Lung cancer Father Dementia Mother Relation Name Status Comments Brother Jagjit Alive Father Mother Social History Tobacco Use Types Packs/Day Years Used Date Smoking Tobacco: Former Pipe Smokeless Tobacco: Never Tobacco Cessation:Counseling Given: Yes Alcohol Use Standard Drinks/Week Comments Yes 0 (1 standard drink = 0.6 oz pur e alcohol) 1-2 glasses 2 times per week PHQ-2 Answer Date Recorded PHQ-2 TOTAL SCORE 1 08/17/2024 Social Connections Answer Date Recorded Do you often feel lonely or isolated from those around you? 0 08/17/2024 Financial Resource Strain Answer Date R ecorded Difficulty of Paying Living Expenses 3 08/17/2024 Difficulty of Paying Living Expenses Not on file 08/17/2024 Food Insecurity Answer Date Recorded Do you worry your food will run out before you are able to buy more? 1 08/17/2024 Transportation Needs Answer Date Record ed Does lack of transportation keep you from medica l appointments? 1 08/17/2024 Does lack of transportation keep you from work, meetings or getting things that you need? 1 08/17/2024 Housing Stability Answer Date Recorded What is your housing situation today? 1 08/17/2024 Sex and Gender Information Value Date Recorded Sex Assigned at Not on file Gender Identity Not on file Sexual Orientation Not on file Obstetrics History Last Filed Vital Signs Vital Sign Reading Time Taken Comments Blood Pressure 107/67 08/17/2024 10:52 AM CDT Pulse 52 08/17/2024 10:52 AM CDT Temperature 36.9 C (98.4 F) 05/24/2014 4:57 PM CDT Respiratory Rate - - Oxygen Saturation 100% 08/17/2024 10:52 AM CDT Inhaled Oxygen Concentration - - Weight 69 kg (152 lb 1.6 oz) 08/17/2024 10:52 AM CDT Height 168.3 cm (5' 6.25) 08/17/2024 10:52 AM C DT Body Mass Index 24.36 08/17/2024 10:52 AM CDT Plan of Treatment Health Maintenance Due Date Last Done Comments Hepatitis C screening for ag e 18-79 1963 Pneumococcal series for age 65+ (2 of 2 - PPSV23 or PCV20) 12/11/2016 10/16/2016 COVID-19 vaccine series (3 - Moderna risk series) 09/14/2024 08/17/2024, 08/15/2023 BMI (ht and wt on same day) for age 18+ 08/17/2025 08/17/2024, 10/07/2023 Depression screening for age 12+ 08/17/2025 08/17/2024, 08/12/2024, 08/11/2024, Additional history exists Medicare Wellness for age 65+ 08/18/2025 08/17/2024 Tetanus booster 02/20/2031 02/20/2021 Tdap Completed 02/20/2021 RSV vaccine for adults or Completed 11/08/2023 Zoster (shingles) series for age 50+ Completed 11/08/2023, 01/24/2019 Influenza for age 65+ Completed 08/17/2024 , 08/15/2023, 07/19/2022, Additional history exists Procedures Procedure Name Priority Date/Time Associated Diagnosis Comments SCAN-CT INTERPRETATION 4 12:00 AM DIORAMIST SCAN-CT INTERPRETATION 4 12:00 AM DIORAMIST SCAN-CT INTERPRETATION 4 12:00 AM DIORAMIST SCAN-RADIOLOGY REPORT 09/17/2024 12:00 AM DIORAMIST SCAN-CT INTERPRETATION 4 12:00 AM DIORAMIST SCAN-RADIOLOGY REPORT 09/14/2024 12:00 AM DIORAMIST URIC ACID Routine 08/25/2024 10:27 AM CDT LIPID PANEL W REFLEX MEASURED LDL Routine 08/25/2024 10:27 AM CDT PSA (TOTAL) ([facility]) Routine 08/25/2024 1 0:27 AM CDT HEMOGLOBIN A1C Routine 08/25/2024 10:27 AM CDT BASIC METABOLIC PANEL Routine 08/25/2024 10:27 AM CDT Essential hypertension Elevated glucose from Last 3 Months Results * SCAN-RADIOLOGY REPORT (09/17/2024 12:00 AM DIORAMIST) Only the most recent of2 resultswithin the time period is included. Anatomical Region Laterality Modality Other Scanner OTHER * SCAN-CT INTERPRETATION (09/17/2024 12:00 AM DIORAMIST) Only the most recent of4 resultswithin the time period is included. Anatomical Region Laterality Modality Other Scanner OTHER * PSA (TOTAL) ([facility]) (08/25/2024 10:27 AM CDT) PSA, TOTAL 0.79 < OR = 4.00 ng/mL [facility] Comment: The total PSA value from this assay system is standardized against the WHO standard. The test result will be approximately 20% lower when compared to the equimolar-standardized total PSA ([place]). Comparison of serial PSA results should be interpreted with this fact in mind. This test was performed using the Siemens chemiluminescent method. Values obtained from different assay methods cannot be used interchangeably. PSA levels, regardless of value, should not be interpreted as absolute evidence of the presence or absence of disease. 08/25/2024 10:2 7 AM CDT 08/25/2024 10:31 AM CDT Neville Bowie MD SEND OUTS [employer] [facility] [address] [place] [address], [facility] [address] [place] [address] * (ABNORMAL) HEMOGLOBIN A1C (08/25/2024 10:27 AM CDT) HEMOGLOBIN A1C 9.3(H) <5.7 % of total Hgb [facility] Comment: For someone without known diabetes, a hemoglobin A1c value of 6.5% or greater indicates that they may have diabetes and this should be confirmed with a follow-up test. For someone with known diabetes, a value <7% indicates that their diabetes is well controlled and a value greater than or equal to 7% indicates suboptimal control. A1c targets should be individualized based on duration of diabetes, age, comorbid conditions, and other considerations. Currently, no consensus exists regarding use of hemoglobin A1c for diagnosis of diabetes for children. 08/25/2024 10:2 7 AM CDT 08/25/2024 10:31 AM CDT Neville Bowie MD CHEMISTRY [employer] [facility] [address] [place] [address], [facility] [address] [place] [address] * (ABNORMAL) LIPID PANEL W REFLEX MEASURED LDL (08/25/2024 10:27 AM CDT) [facility] CHOLESTEROL, TOTAL 135 <200 mg/dL [facility] HDL CHOLESTEROL 30(L) > OR = 40 mg/dL [facility] TRIGLYCERIDES 100 <150 mg/dL [facility] LDL-CHOLESTEROL 85 mg/dL (calc) [facility] Comment: Reference range: <100 Desirable range <100 mg/dL for primary prevention; <70 mg/dL for patients with CHD or diabetic patients with > or = 2 CHD risk factors. LDL-C is now calculated using the Vasyl-Ji calculation, which is a validated novel method providing better accuracy than the Friedewald equation in the estimation of LDL-C. Vasyl SS et al. EULALIO. 2013;310(19): 7058-6267 (http://education.[employer]/faq/XTR849) CHOL/HDLC RATIO 4.5 <5.0 (calc) [facility] NON HDL CHOLESTEROL 105 <130 mg/dL (calc) [facility] Comment: For patients with diabetes plus 1 major ASCVD risk factor, treating to a non-HDL-C goal of <100 mg/dL (LDL-C of <70 mg/dL) is considered a therapeutic option. 08/25/2024 10:2 7 AM CDT 08/25/2024 10:31 AM CDT Neville Bowie MD CHEMISTRY Performing Organization Address [facility] Co de Phone Number [employer] [facility] [address] [place] [address], [facility] [address] [place] [address] * URIC ACID (08/25/2024 10:27 AM CDT) URIC ACID 5.9 4.0 - 8.0 mg/dL [facility] Comment: Therapeutic target for gout patients: <6.0 mg/dL 08/25/2024 10:2 7 AM CDT 08/25/2024 10:31 AM CDT Neville Bowie MD CHEMISTRY Performing Organization Address [facility] Co de Phone Number [employer] [facility] [address] [place] [phone], [facility] [address] [place] [address] * (ABNORMAL) BASIC METABOLIC PANEL (08/25/2024 10:27 AM CDT) GLUCOSE 111(H) 65 - 99 mg/dL [facility] [employer] Comment: Fasting reference interval For someone without known diabetes, a glucose value between 100 and 125 mg/dL is consistent with prediabetes and should be confirmed with a follow-up test. UREA NITROGEN (BUN) 28(H) 7 - 25 mg/dL [facility] CREATININE 0.98 0.70 - 1.28 mg/dL [facility] EGFR 79 > OR = 60 mL/min/1.7 3m2 [facility] BUN/CREATININE RATIO 29(H) 6 - 22 (calc) [facility] SODIUM 144 135 - 146 mmol/L [facility] POTASSIUM 3.5 3.5 - 5.3 mmol/L [facility] CHLORIDE 106 98 - 110 mmol/L [facility] CARBON DIOXIDE 29 20 - 32 mmol/L [facility] ELECTROLYTE BALANCE 9 7 - 17 mmol/L (calc) [facility] CALCIUM 8.8 8.6 - 10.3 mg/dL [facility] Blood BLOOD SPECIMEN / Unknown 08/25/2024 10:27 AM CDT 08/25/2024 10:31 AM CDT Neville Bowie MD CHEMISTRY [employer] [facility] [address] [place] [address], [facility] [address] [place] [address] from Last 3 Months Advance Directives Documents on File Type Date Recorded Patient Manager Supply Chain Planning Expl anation Healthcare Directive 12/16/2023 11:28 AM H EALTHCARE DIRECTIVE Healthcare Directive 07/06/2022 022 Care Teams Duck Farmer Relationship Specialty Start Date End Date Neville Bowie MD [facility] [place] [address] PCP - General Family Practice 10/07/23 Bobby Floyd [address] [place] [phone] Cardiology Cardiovascular Disease 08/19/24 Ruthann Wilson MD [address] [place] [id number] Pulmonology Pulmonary Medicine 08/19/24 Ash Ricketts [address] [place] [phone] Oncology 08/19/24
== END 2024-09-18 12:37 | disposition home or self-care (01) ==
LOC: AMB 09-25 01:24
PROVIDERS: PCP Family Medicine; Visit Provider Emergency Medicine
DX: R41.82 Altered mental status, unspecified (principal); I50.9 Heart failure, unspecified; R13.10 Dysphagia, unspecified
CPT/HCPCS: A0425; A0426